=== PATIENT | female | born 1950 | race American Indian/Alaskan Native ===

== ENCOUNTER 2018-02-27 13:20 | Inpatient (IN) | payer MEDICARE, OTHER ==
--- NOTE | 2018-02-27 14:08 | C.PDOC ---
History Of Present Illness WORSENING SOB, DONATO, GEN MALAISE COUGH X 2 WEEKS. SUBJ FEVER AND CHILLS YESTERDAY. PT DENIES HO CHF, COPD, ASTHMA. DENIES LEG SWELLING, CP OR DIURETIC USE. DENIES HOME O2 USE. HO several strokes, 3 GA's, amy's syndrome, syphillis, HTN, NIDDM, dyslipidemia, gout. EXAM MOD DIST NRB PRESENT "IT HELPS A LITTLE"; 100% ON NRB HEENT NEG NO CYANOSIS LUNGS DEC BREATH SOUNDS TO APEX; SPEAKING FULL SENTENCES +RETRACTIONS TACHYPNEA CV RRR 1+ EDEMA REMAINDER NEG Time Seen by Provider: 02/27/18 13:57 Chief Complaint (Nursing): Cough, Cold, Congestion History Per: Patient History/Exam Limitations: no limitations Onset/Duration Of Symptoms: Days Current Symptoms Are (Timing): Still Present Severity: Moderate Past Medical History Reviewed: Historical Data, Nursing Documentation, Vital Signs Vital Signs: Last Vital Signs Temp 98.4 F 02/27/18 13:29 Pulse 77 02/27/18 13:53 Resp 15 02/27/18 13:53 BP 133/62 02/27/18 13:53 Pulse Ox 100 02/27/18 13:53 - Medical History PMH: Arthritis, HTN, Hypercholesterolemia, Peripheral Edema (+1 ble), TIA (x9 no deficits) Denies: Chronic Kidney Disease Surgical History: Denies: Pacemaker Other Surgeries: Hx of surgeries - [facility] CORONAR ARTERIOGR-2 CATH (08/29/13) INSERTION OF ONE VASCULAR STENT (08/29/13) INSRT OF DRUG-ELUTING CORON ARTERY STENTS(S) (08/29/13) LEFT HEART CARDIAC CATH (08/29/13) LT HEART ANGIOCARDIOGRAM (08/29/13) PERCUTANEOUS TRANSLUMINAL CORONARY ANGIOPLASTY [PTCA] (08/29/13) PROCEDURE ON SINGLE VESSEL (08/29/13) Family History: States: No Known Family Hx - Social History Hx Alcohol Use: No Hx Substance Use: No Review Of Systems Except As Marked, All Systems Reviewed And Found Negative. Constitutional: Positive for: Fever (subjective), Chills, Malaise Cardiovascular: Negative for: Chest Pain Respiratory: Positive for: Shortness of Breath Gastrointestinal: Negative for: Nausea, Vomiting Physical Exam - Physical Exam Appears: Other (moderate distress, NRB present " it helps a little" 100% on NRB) Skin: Warm, Dry, No Cyanotic Head: Atraumatic, Normacephalic Eye(s): bilateral: Normal Inspection Cardiovascular: Rhythm Regular Respiratory: Decreased Breath Sounds (decreased breath sounds to apex ), No Rales, No Rhonchi, No Wheezing, Other (+ retractions, tachypnea, speaking full sentences) Extremity: Normal ROM, Other (1+ edema) Neurological/Psych: Oriented x3, Normal Speech ED Course And Treatment - Laboratory Results Result Diagrams: 02/27/18 14:19 02/27/18 14:19 ECG: Interpreted By Me, Viewed By Me ECG Rhythm: Sinus Rhythm Rate From EC O2 Sat by Pulse Oximetry: 100 (on non-rebreather) Pulse Ox Interpretation: Normal - Radiology CXR: Interpreted by Me CXR Interpretation: Yes: Other (BL PLEURAL EFFUSION, CONGESTION) Progress - Re-Evaluation Re-evaluation Note: 02/27/18 14:45 ON VAPOTHERM, 100% APPEARS COMFORTABLE NO SIG CHANGE PRIOR. PS NO PRIOR HO ANEMIA, GI BLEED. 02/27/18 14:47 D/W DR Michelle TEJEDA AWARE OF ER FINDINGS. REQUESTING ICU CONSULT, CONSULT PULM PILATES INSTRUCTOR AND DR BILLINGS 02/27/18 15:02 D/W DR JONES ICU PILATES INSTRUCTOR WILL EVAL IN ER 02/27/18 15:12 ACCEPTS FOR ICU - Data Reviewed Data Reviewed: Lab, Diagnostic imaging, EKG, Old records - Critical Care Citical Care: Excluding Proc Time Critical Care Time: 90 minutes Medical Decision Making Medical Decision Making: Plan: --Labs --ECG --CXR --UA Disposition Counseled Patient/Family Regarding: Studies Performed, Diagnosis - Disposition Disposition: HOSPITALIZED Disposition Time: 15:04 Condition: SERIOUS Forms: [facility] (Ukrainian) - POA Present On Arrival: None - Clinical Impression Clinical Impression: Hypoxia, Acute CHF, Symptomatic anemia - Scribe Statement The provider has reviewed the documentation as recorded by the Jaclyn Doherty Provider Attestation: All medical record entries made by the Scribe were at my direction and personally dictated by me. I have reviewed the chart and agree that the record accurately reflects my personal performance of the history, physical exam, medical decision making, and the department course for this patient. I have also personally directed, reviewed, and agree with the discharge instructions and disposition.
[2018-02-27 14:30] LABS: BASO # 0.1 K/uL (0.0-0.2); BASO % 0.9 % (0.0-2.0); EOS % 0.1 % (0.0-4.0); LYMPH # 1.2 K/uL (1.0-4.3); LYMPH % 12.6 % (20.0-40.0); MEAN CORPUSCULAR HEMOGLOBIN 18.5 pg (27.0-31.0); MEAN CORPUSCULAR HGB CONC 28.5 g/dL (33.0-37.0); MEAN PLATELET VOLUME 9.7 fL (7.2-11.7); MONO # 0.5 K/uL (0.0-0.8); MONO % 5.9 % (0.0-10.0); NEUT # 7.3 K/uL (1.8-7.0); NEUT % 80.5 % (50.0-75.0); NRBC % 0.2 % (0.0-2.0); RBC 3.29 Mil/uL (3.80-5.20); RED CELL DISTRIBUTION WIDTH 21.1 % (11.5-14.5); WHITE BLOOD COUNT 9.1 K/uL (4.8-10.8)
[2018-02-27 14:35] LABS: ABG ALLEN TEST POS; ARTERIAL BLOOD GAS HCO3 25.9 mmol/L (21-28); ARTERIAL BLOOD GAS PCO2 41 mm/Hg (35-45); ARTERIAL BLOOD GAS PH 7.41 (7.35-7.45); ARTERIAL BLOOD GAS PO2 195 mm/Hg (80-100); ARTERIAL BLOOD GAS TCO2 27.3 mmol/L (22-28)
[2018-02-27 14:36] LABS: INR 1.1; PROTHROMBIN TIME 12.5 SECONDS (9.7-12.2)
[2018-02-27 14:41] LABS: HEMOGLOBIN 6.1 g/dL (11.0-16.0); MEAN CELL VOLUME 64.9 fL (81.0-99.0)
[2018-02-27 14:54] LABS: ALB/GLOB RATIO 1.1 (1.0-2.1); ALBUMIN 3.8 g/dL (3.5-5.0); ALT/SGPT 20 U/L (9-52); AST/SGOT 28 U/L (14-36); B-TYPE NATRIURETIC PEPTIDE 3040 pg/mL (0-900); BLOOD UREA NITROGEN 24 mg/dL (7-17); CALCIUM 9.2 mg/dl (8.6-10.4); GFR NON-AFRICAN AMERICAN > 60
[2018-02-27 15:32] LABS: MEAN CELL VOLUME 64.5 fL (81.0-99.0); MEAN CORPUSCULAR HEMOGLOBIN 18.4 pg (27.0-31.0); MEAN CORPUSCULAR HGB CONC 28.5 g/dL (33.0-37.0); MEAN PLATELET VOLUME 8.7 fL (7.2-11.7); RBC 3.33 Mil/uL (3.80-5.20); RED CELL DISTRIBUTION WIDTH 20.7 % (11.5-14.5); WHITE BLOOD COUNT 9.1 K/uL (4.8-10.8)
[2018-02-27 15:43] LABS: HEMOGLOBIN 6.1 g/dL (11.0-16.0)
--- NOTE | 2018-02-27 16:16 | RAD ---
Date of service: 02/27/2018 HISTORY: SOB COMPARISON: None available. FINDINGS: LUNGS: There appears to be mild central pulmonary venous congestive changes exacerbated in appearance by a poor inspiration. Suspect mild bibasilar atelectasis. PLEURA: No significant pleural effusion identified, no pneumothorax apparent. CARDIOVASCULAR: No appreciable aortic atherosclerotic calcification present. Cardiomegaly.. OSSEOUS STRUCTURES: No significant abnormalities. Apparent in situ pain stimulator overlying the mid to lower thoracic spine. VISUALIZED UPPER ABDOMEN: Normal. OTHER FINDINGS: None. IMPRESSION: There appears to be mild central pulmonary venous congestive changes exacerbated in appearance by a poor inspiration. Suspect mild bibasilar atelectasis.
--- NOTE | 2018-02-27 17:00 | CP.PCM.CON ---
<Rudi Mercado - Last Filed: 02/27/18 19:09> History of Present Illness - History of Present Illness History of Present Illness: PGY-1 ICU Consult Note for Dr. Lares Patient is a 66 year old F with PMHx of CVA (multiple episodes), ND (3 episodes), Riana's syndrome, syphilis, HTN, HLD, NIDDM, gout presenting to the ED with worsening shortness of breath, dyspnea on exertion, orthopnea, and dry cough for the past 2 weeks. Patient also endorses subjective fevers and chills since yesterday. No headaches, dizziness, changes in vision, chest pain, palpitations, abdominal pain, n/v/d/c, dysuria, or changes in stool. PMHx: CVA (multiple episodes), ND (3 episodes), Riana's syndrome, syphilis, HTN, HLD, NIDDM, gout PSHx: Heart stent (06/2013), Left ankle surgery, Right eye surgery, Right ovarian cyst surgery, Spinal cord stimulator surgery Allergies: Lyrica Home Medications: as per EMR Social Hx: + tobacco use, denies alcohol or illicit drug use Family Hx: unknown PMD: Dr. 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, 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 brreaking since 2012, wears eyeglasses - RENAL Hx Chronic Kidney Disease: No - ENDOCRINE/METABOLIC Hx Endocrine Disorders: Yes Hx Diabetes Mellitus Type 1: Yes (dx 02/2013) Other/Comment: was in a diabetic coma 9 days 2013 - HEMATOLOGICAL/ONCOLOGICAL Hx Blood Disorders: No - INTEGUMENTARY Hx Dermatological Problems: No - MUSCULOSKELETAL/RHEUMATOLOGICAL Hx Arthritis: Yes - GASTROINTESTINAL Hx Gastrointestinal Disorders: Yes (obese) - GENITOURINARY/GYNECOLOGICAL Hx Incontinence: Yes (uses depends) - PSYCHIATRIC Hx Substance Use: No - SURGICAL HISTORY Hx Cardiac Catheterization: Yes Hx Musculoskeletal Surgery: Yes (LEFT ANKLE SURGERY from fall) Other/Comment: hardware removed left ankle, ovarian cyst removed, spinal cord implant styimulator at [facility] [address] moe - ANESTHESIA Hx Anesthesia Reactions: Yes Hx Malignant Hyperthermia: No Meds Allergies/Adverse Reactions: Allergies Allergy/AdvReac Type Severity Reaction Status Date / Time pregabalin [From Lyrica] Allergy ANGIOEDEMA Verified 01/15/17 19:27 Physical Exam - Constitutional Appears: Non-toxic - Head Exam Head Exam: ATRAUMATIC, NORMAL INSPECTION, NORMOCEPHALIC - Eye Exam Eye Exam: EOMI, Normal appearance - ENT Exam ENT Exam: Mucous Membranes Moist, Normal Exam - Neck Exam Neck exam: Positive for: Full Rom, Normal Inspection - Respiratory Exam Respiratory Exam: Decreased Breath Sounds. absent: Rales, Rhonchi, Wheezes Additional comments: tachypneic, speaking full sentences - Cardiovascular Exam Cardiovascular Exam: REGULAR RHYTHM, +S1, +S2 - GI/Abdominal Exam GI & Abdominal Exam: Normal Bowel Sounds, Soft. absent: Distended, Firm, Guarding, Hernia, Rebound, Tenderness - Extremities Exam Extremities exam: Positive for: normal capillary refill, normal inspection, pedal pulses present. Negative for: calf tenderness, pedal edema - Neurological Exam Neurological exam: Alert, Oriented x3 - Psychiatric Exam Psychiatric exam: Normal Affect, Normal Mood - Skin Skin Exam: Dry, Intact, Normal Color, Warm Results - Vital Signs Recent Vital Signs: Last Vital Signs Temp 98.4 F 02/27/18 16:53 Pulse 83 02/27/18 16:53 Resp 18 02/27/18 16:53 BP 151/85 H 02/27/18 16:53 Pulse Ox 93 L 02/27/18 16:53 - Labs Result Diagrams: 02/27/18 15:25 02/27/18 14:19 Labs: Laboratory Results - last 24 hr 02/27/18 02/27/18 02/27/18 14:19 14:19 14:19 WBC 9.1 RBC 3.29 L Hgb 6.1 L* D Hct 21.3 L MCV 64.9 L D MCH 18.5 L MCHC 28.5 L RDW 21.1 H Plt Count 284 MPV 9.7 Neut % (Auto) 80.5 H Lymph % (Auto) 12.6 L Smith % (Auto) 5.9 Eos % (Auto) 0.1 Baso % (Auto) 0.9 Neut # (Auto) 7.3 H Lymph # (Auto) 1.2 Smith # (Auto) 0.5 Eos # (Auto) 0.0 Baso # (Auto) 0.1 Differential Comment PT 12.5 H INR 1.1 APTT 38 H Puncture Site pCO2 pO2 HCO3 ABG pH ABG Total CO2 ABG O2 Saturation ABG Base Excess Lester Test ABG Potassium A-a O2 Difference Respiratory Index Glucose Lactate Liter Flow FiO2 Sodium 136 Potassium 4.7 Chloride 95 L Carbon Dioxide 27 Anion Gap 19 BUN 24 H Creatinine 0.9 Est GFR ( Amer) > 60 Est GFR (Non-Af Amer) > 60 Random Glucose 124 H Calcium 9.2 Phosphorus 2.9 Magnesium 1.6 Total Bilirubin 0.9 AST 28 ALT 20 Alkaline Phosphatase 82 NT-Pro-B Natriuret Pep 3040 H Total Protein 7.2 Albumin 3.8 Globulin 3.4 Albumin/Globulin Ratio 1.1 Arterial Blood Potassium Blood Type Antibody Screen 02/27/18 02/27/18 02/27/18 14:32 15:25 15:25 WBC 9.1 RBC 3.33 L Hgb 6.1 L* Hct 21.5 L MCV 64.5 L MCH 18.4 L MCHC 28.5 L RDW 20.7 H Plt Count 273 MPV 8.7 Neut % (Auto) Lymph % (Auto) Smith % (Auto) Eos % (Auto) Baso % (Auto) Neut # (Auto) Lymph # (Auto) Smith # (Auto) Eos # (Auto) Baso # (Auto) Differential Comment PT INR APTT Puncture Site Rr pCO2 41 pO2 195 H HCO3 25.9 ABG pH 7.41 ABG Total CO2 27.3 ABG O2 Saturation 100.0 H ABG Base Excess 1.2 Lester Test Pos ABG Potassium 4.1 A-a O2 Difference 467.0 Respiratory Index 2.4 Glucose 86 Lactate 1.2 Liter Flow 20.0 FiO2 100.0 Sodium 139.0 Potassium Chloride 111.0 H Carbon Dioxide Anion Gap BUN Creatinine Est GFR ( Amer) Est GFR (Non-Af Amer) Random Glucose Calcium Phosphorus Magnesium Total Bilirubin AST ALT Alkaline Phosphatase NT-Pro-B Natriuret Pep Total Protein Albumin Globulin Albumin/Globulin Ratio Arterial Blood Potassium 4.1 Blood Type A POSITIVE Antibody Screen Negative Assessment & Plan - Assessment and Plan (Free Text) Assessment: 68 yo F with PMHx including multiple CVA, multiple ND, NIIDM, HTN, HLD presenting worsening shortness of breath, DONATO, elevated BNP. Plan: Neuro: -patient alert and oriented x3 -no focal neurological deficits noted -c/w home neurontin Pulm: -on vapotherm 100% @ 40L/min -CXR (02/27): Mild central pulmonary venous congestive changes exacerbated in appearance by a poor inspiration. Suspect mild bibasilar atelectasis. CV: -BP 162/71 -BNP 2040 -EKG (02/27): NSR @ 76 bpm -c/w ASA, plavix, statin -c/w lopressor 50 BID -Cardiology consult (Dr. Bennett) on board Heme: -Hb/Hct: 6.1/21.5 -PT/INR: 12.5/1.1 -PTT: 38 -no prior hx anemia, no hx GI bleed -type and cross 2 units -to tranfuse 1 unit pRBCs, repeat CBC Renal: -BUN/Cr 24/0.9 -electrolytes within normal limits Endo: -A1C: 6.5 -restart home meds GI: -GI consult (Dr. Fuller) on board ID: [id number] [id number] PPx, Diet, Disposition -GI: pepcid -PT eval on board Case discussed with Dr. Luda Mercado DO, PGY-1 <Erasto Lares - Last Filed: 02/28/18 11:31> Meds - Medications Medications: Current Medications Aspirin (Ecotrin) 81 mg PO DAILY [facility] Last Admin: 02/28/18 10:03 Dose: Not Given Clopidogrel Bisulfate (Plavix) 75 mg PO DAILY [facility] Last Admin: 02/28/18 10:03 Dose: Not Given Gabapentin (Neurontin) 600 mg PO DAILY [facility] Last Admin: 02/28/18 10:03 Dose: 600 mg Metoprolol Tartrate (Lopressor) 50 mg PO BID [facility] Last Admin: 02/28/18 10:03 Dose: 50 mg Pantoprazole Sodium (Protonix Inj) 40 mg IVP DAILY [facility] Last Admin: 02/28/18 10:02 Dose: 40 mg Rosuvastatin Calcium (Crestor) 5 mg PO HS [facility] Last Admin: 02/27/18 21:40 Dose: 5 mg Sitagliptin Phosphate (Januvia) 50 mg PO DAILY [facility] Last Admin: 02/28/18 10:58 Dose: 50 mg Results - Vital Signs Recent Vital Signs: Last Vital Signs Temp 98.6 F 02/28/18 11:02 Pulse 68 02/28/18 11:20 Resp 20 02/28/18 11:20 BP 130/57 L 02/28/18 11:18 Pulse Ox 100 02/28/18 11:20 - Labs Result Diagrams: 02/28/18 06:34 02/28/18 06:30 Labs: Laboratory Results - last 24 hr 02/27/18 02/27/18 02/27/18 14:19 14:19 14:19 WBC 9.1 RBC 3.29 L Hgb 6.1 L* D Hct 21.3 L MCV 64.9 L D MCH 18.5 L MCHC 28.5 L RDW 21.1 H Plt Count 284 MPV 9.7 Neut % (Auto) 80.5 H Lymph % (Auto) 12.6 L Smith % (Auto) 5.9 Eos % (Auto) 0.1 Baso % (Auto) 0.9 Neut # (Auto) 7.3 H Lymph # (Auto) 1.2 Smith # (Auto) 0.5 Eos # (Auto) 0.0 Baso # (Auto) 0.1 Differential Comment Retic Count PT 12.5 H INR 1.1 APTT 38 H Puncture Site pCO2 pO2 HCO3 ABG pH ABG Total CO2 ABG O2 Saturation ABG Base Excess Lester Test ABG Potassium A-a O2 Difference Respiratory Index Glucose Lactate Liter Flow FiO2 Sodium 136 Potassium 4.7 Chloride 95 L Carbon Dioxide 27 Anion Gap 19 BUN 24 H Creatinine 0.9 Est GFR ( Amer) > 60 Est GFR (Non-Af Amer) > 60 POC Glucose (mg/dL) Random Glucose 124 H Calcium 9.2 Phosphorus 2.9 Magnesium 1.6 Iron TIBC % Saturation Ferritin Total Bilirubin 0.9 AST 28 ALT 20 Alkaline Phosphatase 82 NT-Pro-B Natriuret Pep 3040 H Total Protein 7.2 Albumin 3.8 Globulin 3.4 Albumin/Globulin Ratio 1.1 Arterial Blood Potassium Urine Color Urine Clarity Urine pH Ur Specific Brawley Urine Protein Urine Glucose (UA) Urine Ketones Urine Blood Urine Nitrate Urine Bilirubin Urine Urobilinogen Ur Leukocyte Esterase Urine WBC (Auto) Urine RBC (Auto) Ur Squamous Epith Cells Urine Bacteria Blood Type Antibody Screen 02/27/18 02/27/18 02/27/18 14:32 15:25 15:25 WBC 9.1 RBC 3.33 L Hgb 6.1 L* Hct 21.5 L MCV 64.5 L MCH 18.4 L MCHC 28.5 L RDW 20.7 H Plt Count 273 MPV 8.7 Neut % (Auto) Lymph % (Auto) Smith % (Auto) Eos % (Auto) Baso % (Auto) Neut # (Auto) Lymph # (Auto) Smith # (Auto) Eos # (Auto) Baso # (Auto) Differential Comment Retic Count PT INR APTT Puncture Site Rr pCO2 41 pO2 195 H HCO3 25.9 ABG pH 7.41 ABG Total CO2 27.3 ABG O2 Saturation 100.0 H ABG Base Excess 1.2 Lester Test Pos ABG Potassium 4.1 A-a O2 Difference 467.0 Respiratory Index 2.4 Glucose 86 Lactate 1.2 Liter Flow 20.0 FiO2 100.0 Sodium 139.0 Potassium Chloride 111.0 H Carbon Dioxide Anion Gap BUN Creatinine Est GFR ( Amer) Est GFR (Non-Af Amer) POC Glucose (mg/dL) Random Glucose Calcium Phosphorus Magnesium Iron TIBC % Saturation Ferritin Total Bilirubin AST ALT Alkaline Phosphatase NT-Pro-B Natriuret Pep Total Protein Albumin Globulin Albumin/Globulin Ratio Arterial Blood Potassium 4.1 Urine Color Urine Clarity Urine pH Ur Specific Brawley Urine Protein Urine Glucose (UA) Urine Ketones Urine Blood Urine Nitrate Urine Bilirubin Urine Urobilinogen Ur Leukocyte Esterase Urine WBC (Auto) Urine RBC (Auto) Ur Squamous Epith Cells Urine Bacteria Blood Type A POSITIVE Antibody Screen Negative 02/27/18 02/27/18 02/28/18 20:54 21:25 00:15 WBC 9.4 RBC 3.71 L Hgb 7.3 L Hct 25.0 L MCV 67.4 L D MCH 19.8 L MCHC 29.3 L RDW 23.4 H Plt Count 273 MPV 9.3 Neut % (Auto) 81.1 H Lymph % (Auto) 11.9 L Smith % (Auto) 6.3 Eos % (Auto) 0.4 Baso % (Auto) 0.3 Neut # (Auto) 7.7 H Lymph # (Auto) 1.1 Smith # (Auto) 0.6 Eos # (Auto) 0.0 Baso # (Auto) 0.0 Differential Comment Retic Count PT INR APTT Puncture Site pCO2 pO2 HCO3 ABG pH ABG Total CO2 ABG O2 Saturation ABG Base Excess Lester Test ABG Potassium A-a O2 Difference Respiratory Index Glucose Lactate Liter Flow FiO2 Sodium Potassium Chloride Carbon Dioxide Anion Gap BUN Creatinine Est GFR ( Amer) Est GFR (Non-Af Amer) POC Glucose (mg/dL) 151 H Random Glucose Calcium Phosphorus Magnesium Iron TIBC % Saturation Ferritin Total Bilirubin AST ALT Alkaline Phosphatase NT-Pro-B Natriuret Pep Total Protein Albumin Globulin Albumin/Globulin Ratio Arterial Blood Potassium Urine Color Straw Urine Clarity Clear Urine pH 5.0 Ur Specific Brawley 1.004 Urine Protein Negative Urine Glucose (UA) Normal Urine Ketones Negative Urine Blood Negative Urine Nitrate Negative Urine Bilirubin Negative Urine Urobilinogen Normal Ur Leukocyte Esterase Neg Urine WBC (Auto) < 1 Urine RBC (Auto) < 1 Ur Squamous Epith Cells < 1 Urine Bacteria Rare Blood Type Antibody Screen 02/28/18 02/28/18 02/28/18 06:30 06:34 07:26 WBC 8.4 RBC 3.63 L Hgb 7.3 L Hct 24.5 L MCV 67.6 L MCH 20.1 L MCHC 29.7 L RDW 23.2 H Plt Count 242 MPV 9.2 Neut % (Auto) 78.1 H Lymph % (Auto) 14.0 L Smith % (Auto) 6.7 Eos % (Auto) 0.6 Baso % (Auto) 0.6 Neut # (Auto) 6.5 Lymph # (Auto) 1.2 Smith # (Auto) 0.6 Eos # (Auto) 0.1 Baso # (Auto) 0.1 Differential Comment Retic Count 2.8 H PT INR APTT Puncture Site pCO2 pO2 HCO3 ABG pH ABG Total CO2 ABG O2 Saturation ABG Base Excess Lester Test ABG Potassium A-a O2 Difference Respiratory Index Glucose Lactate Liter Flow FiO2 Sodium 137 Potassium 4.5 Chloride 97 L Carbon Dioxide 34 H Anion Gap 11 BUN 20 H Creatinine 0.7 Est GFR ( Amer) > 60 Est GFR (Non-Af Amer) > 60 POC Glucose (mg/dL) 129 H Random Glucose 120 H Calcium 8.9 Phosphorus 3.6 Magnesium 1.6 Iron TIBC % Saturation Ferritin 7.1 Total Bilirubin 1.2 AST 28 ALT 21 Alkaline Phosphatase 101 NT-Pro-B Natriuret Pep Total Protein 7.1 Albumin 3.7 Globulin 3.3 Albumin/Globulin Ratio 1.1 Arterial Blood Potassium Urine Color Urine Clarity Urine pH Ur Specific Brawley Urine Protein Urine Glucose (UA) Urine Ketones Urine Blood Urine Nitrate Urine Bilirubin Urine Urobilinogen Ur Leukocyte Esterase Urine WBC (Auto) Urine RBC (Auto) Ur Squamous Epith Cells Urine Bacteria Blood Type Antibody Screen 02/28/18 08:13 WBC RBC Hgb Hct MCV MCH MCHC RDW Plt Count MPV Neut % (Auto) Lymph % (Auto) Smith % (Auto) Eos % (Auto) Baso % (Auto) Neut # (Auto) Lymph # (Auto) Smith # (Auto) Eos # (Auto) Baso # (Auto) Differential Comment Retic Count PT INR APTT Puncture Site pCO2 pO2 HCO3 ABG pH ABG Total CO2 ABG O2 Saturation ABG Base Excess Lester Test ABG Potassium A-a O2 Difference Respiratory Index Glucose Lactate Liter Flow FiO2 Sodium Potassium Chloride Carbon Dioxide Anion Gap BUN Creatinine Est GFR ( Amer) Est GFR (Non-Af Amer) POC Glucose (mg/dL) Random Glucose Calcium Phosphorus Magnesium Iron 35 L TIBC 502 H % Saturation 7 L Ferritin Total Bilirubin AST ALT Alkaline Phosphatase NT-Pro-B Natriuret Pep Total Protein Albumin Globulin Albumin/Globulin Ratio Arterial Blood Potassium Urine Color Urine Clarity Urine pH Ur Specific Brawley Urine Protein Urine Glucose (UA) Urine Ketones Urine Blood Urine Nitrate Urine Bilirubin Urine Urobilinogen Ur Leukocyte Esterase Urine WBC (Auto) Urine RBC (Auto) Ur Squamous Epith Cells Urine Bacteria Blood Type Antibody Screen Attending/Attestation - Attestation I have personally seen and examined this patient.: Yes I have fully participated in the care of the patient.: Yes I have reviewed all pertinent clinical information: Yes Notes (Text): 02/28/18 11:30 patient is a 68-year-old female chronic smoker, one pack per day for many years, history of stent, CAD, hypertension diabetes. Patient admitted with acute decompensated heart failure, and associate with this severe anemia of unclear etiology, suspected GI bleed. Patient with the possible acute respirated failure, associate with the decompensated systolic heart failure, and anemia. Patient needed hospi talization in the intensive care unit with high flow oxygen, blood transfusion, cardiology and GI evaluation. Will closely monitor in the ICU
--- NOTE | 2018-02-27 18:35 | CP.PCM.CON ---
History of Present Illness - History of Present Illness History of Present Illness: I was asked to see patient by Dr Lozano and Dr Lares. Patient was seen 02/27/18 1800 Patient is a 68 year old female with HTN, CAD s/p PCI, hypercholesterolemia, chronic back problems s/p multiple surgeries who presents with fatigue weakness and dyspnea. Symptoms began 2 weeks prior to presentation when she developed progressive fatigue. The patient was noted to have worsening dyspnea and orthopnea. She presented to [facility] and was found to have Hgb 6.4 and a pro BNP of 3,000. She denies current chest pain. Review of Systems - Constitutional Constitutional: Malaise, Weakness - EENT Eyes: absent: As Per HPI, Blind Spots, Blurred Vision, Change in Vision, Decreased Night Vision, Diplopia, Discharge, Dry Eye, Exophthalmos, Floaters, Irritation, Itchy Eyes, Loss of Peripheral Vision, Pain, Photophobia, Requires Corrective Lenses, Sees Flashes, Spots in Vision, Tunnel Vision, Other Visual Disturbances, Loss of Vision, Other Ears: absent: As Per HPI, Decreased Hearing, Ear Discharge, Ear Pain, Tinnitus, Abnormal Hearing, Disequilibrium, Dizziness, Other Nose/Mouth/Throat: absent: As Per HPI, Epistaxis, Nasal Congestion, Nasal Discharge, Nasal Obstruction, Nasal Trauma, Nose Pain, Post Nasal Drip, Sinus Pain, Sinus Pressure, Bleeding Gums, Change in Voice, Dental Pain, Dry Mouth, Dysphagia, Halitosis, Hoarsness, Lip Swelling, Mouth Lesions, Mouth Pain, Odynophagia, Sore Throat, Throat Swelling, Tongue Swelling, Facial Pain, Neck Pain, Neck Mass, Other - Cardiovascular Cardiovascular: Dyspnea, Orthopnea - Respiratory Respiratory: Dyspnea - Gastrointestinal Gastrointestinal: absent: As Per HPI, Abdominal Pain, Belching, Bloating, Change in Bowel Habits, Change in Stool Character, Coffee Ground Emesis, Constipation, Cramping, Diarrhea, Dyspepsia, Dysphagia, Early Satiety, Excessive Flatus, Fecal Incontinence, Heartburn, Hematemesis, Hematochezia, Loose Stools, Melena, Nausea, Odynophagia, Temesmus, Vomiting, Other - Genitourinary Genitourinary: absent: As Per HPI, Change in Urinary Stream, Difficulty Urinating, Dysuria, Flank Pain, Hematuria, Pyuria, Nocturia, Urinary Incontinen ce, Urinary Frequency, Urinary Hesitance, Urinary Urgency, Voiding Freq/Small Amts, Freq UTI, Hx Renal/Bladder Calculi, Hx /Renal Surgery, Bladder Distension, Other - Musculoskeletal Musculoskeletal: absent: As Per HPI, Abnormal Gait, Arthralgias, Atrophy, Back Pain, Deformity, Joint Swelling, Limited Range of Motion, Loss of Height, Muscle Cramps, Muscle Weakness, Myalgias, Neck Pain, Numbness, Radiating Pain into Limb, Stiffness, Tingling, Other - Integumentary Integumentary: absent: As Per HPI, Acne, Alopecia, Bleeding Lesions, Change in Hair, Change in Nails, Change in Pigmentation, Changing Lesions, Dry Skin, Erythema, Furuncle, Hirsutism, Lesions, New Lesions, Non-Healing Lesions, Photosensitivity, Pruritus, Rash, Skin Pain, Skin Ulcer, Sores, Striae, Swelling, Unusual Bruising, Wounds, Jaundice, Other - Neurological Neurological: absent: As Per HPI, Abnormal Gait, Abnormal Hearing, Abnormal Movements, Abnormal Speech, Behavioral Changes, Burning Sensations, Confusion, Convulsions, Disequilibrium, Dizziness, Numbness, Focal Weakness, Frequent Falls, Headaches, Lack of Coordination, Loss of Vision, Memory Loss, Paresthesias, Radicular Pain, Restless Legs, Sensory Deficit, Syncope, Tingling, Tremor, Vertigo, Weakness, Other Visual Disturbances, Other - Psychiatric Psychiatric: absent: As Per HPI, Abnormal Sleep Pattern, Anhedonia, Anxiety, Auditory Hallucinations, Behavioral Changes, Change in Appetite, Change in L ibido, Confusion, Depression, Difficulty Concentrating, Hallucinations, Homicidal Ideation, Hopelessness, Irritability, Memory Loss, Mood Swings, Panic Attacks, Paranoia, Suicidal Ideation, Visual Hallucinations, Tactile Hallucinations, Other - Endocrine Endocrine: absent: As Per HPI, Change in Body Appearance, Change in Libido, Cold Intolorance, Deepening of Voice, Excessive Sweating, Fatigue, Flushing, Heat Intolorance, Increase in Ring/Shoe/Hat Size, Palpitations, Polydipsia, Polyphagia, Polyuria, Other - Hematologic/Lymphatic Hematologic: absent: As Per HPI, Easy Bleeding, Easy Bruising, Lymphadenopathy, Other Past Patient History - Infectious Disease Hx of Infectious Diseases: None - Past Social History Smoking Status: Never Smoked - CARDIAC Hx Hypercholesterolemia: Yes Hx Hypertension: Yes Hx Pacemaker: No Hx Peripheral Edema: Yes (+1 ble) - PULMONARY Hx Respiratory Disorders: No - NEUROLOGICAL Hx Transient Ischemic Attacks (TIA): Yes (x9 no deficits) - HEENT Hx HEENT Problems: No (RIGHT EYE SURGERY -LAZY EYE) Other/Comment: 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, 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 brreaking since 2012, wears eyeglasses - RENAL Hx Chronic Kidney Disease: No - ENDOCRINE/METABOLIC Hx Endocrine Disorders: Yes Hx Diabetes Mellitus Type 1: Yes (dx 02/2013) Other/Comment: was in a diabetic coma 9 days 2013 - HEMATOLOGICAL/ONCOLOGICAL Hx Blood Disorders: No - INTEGUMENTARY Hx Dermatological Problems: No - MUSCULOSKELETAL/RHEUMATOLOGICAL Hx Arthritis: Yes - GASTROINTESTINAL Hx Gastrointestinal Disorders: Yes (obese) - GENITOURINARY/GYNECOLOGICAL Hx Incontinence: Yes (uses depends) - PSYCHIATRIC Hx Substance Use: No - SURGICAL HISTORY Hx Cardiac Catheterization: Yes Hx Musculoskeletal Surgery: Yes (LEFT ANKLE SURGERY from fall) Other/Comment: hardware removed left ankle, ovarian cyst removed, spinal cord implant styimulator at [facility] [address] moe - ANESTHESIA Hx Anesthesia Reactions: Yes Hx Malignant Hyperthermia: No Meds Allergies/Adverse Reactions: Allergies Allergy/AdvReac Type Severity Reaction Status Date / Time pregabalin [From Lyrica] Allergy ANGIOEDEMA Verified 01/15/17 19:27 - Medications Medications: Current Medications Aspirin (Ecotrin) 81 mg PO DAILY [facility] Clopidogrel Bisulfate (Plavix) 75 mg PO DAILY [facility] Famotidine (Pepcid) 20 mg IVP DAILY [facility] Gabapentin (Neurontin) 600 mg PO DAILY [facility] Metoprolol Tartrate (Lopressor) 50 mg PO BID [facility] Last Admin: 02/27/18 18:27 Dose: 50 mg Rosuvastatin Calcium (Crestor) 5 mg PO HS [facility] Sitagliptin Phosphate (Januvia) 50 mg PO DAILY [facility] Physical Exam - Constitutional Appears: No Acute Distress - Head Exam Head Exam: NORMAL INSPECTION - Eye Exam Eye Exam: Normal appearance - ENT Exam ENT Exam: Mucous Membranes Dry - Neck Exam Neck exam: Positive for: Full Rom, Normal Inspection. Negative for: Lymphadenopathy - Respiratory Exam Respiratory Exam: Decreased Breath Sounds. absent: Rhonchi, Wheezes - Cardiovascular Exam Cardiovascular Exam: REGULAR RHYTHM, JVD, RRR, +S1, +S2 - GI/Abdominal Exam GI & Abdominal Exam: Normal Bowel Sounds - Rectal Exam Rectal Exam: Deferred - Extremities Exam Extremities exam: Positive for: pedal edema - Back Exam Back exam: NORMAL INSPECTION - Neurological Exam Neurological exam: Alert, Oriented x3 - Psychiatric Exam Psychiatric exam: Normal Affect - Skin Skin Exam: Dry, Normal Color, Warm Results - Vital Signs Recent Vital Signs: Last Vital Signs Temp 98.8 F 02/27/18 18:12 Pulse 79 02/27/18 18:12 Resp 21 02/27/18 18:12 BP 165/84 H 02/27/18 18:12 Pulse Ox 94 L 02/27/18 18:12 - Labs Result Diagrams: 02/27/18 15:25 02/27/18 14:19 Labs: Laboratory Results - last 24 hr 02/27/18 02/27/18 02/27/18 14:19 14:19 14:19 WBC 9.1 RBC 3.29 L Hgb 6.1 L* D Hct 21.3 L MCV 64.9 L D MCH 18.5 L MCHC 28.5 L RDW 21.1 H Plt Count 284 MPV 9.7 Neut % (Auto) 80.5 H Lymph % (Auto) 12.6 L [place] % (Auto) 5.9 Eos % (Auto) 0.1 Baso % (Auto) 0.9 Neut # (Auto) 7.3 H Lymph # (Auto) 1.2 [place] # (Auto) 0.5 Eos # (Auto) 0.0 Baso # (Auto) 0.1 Differential Comment PT 12.5 H INR 1.1 APTT 38 H Puncture Site pCO2 pO2 HCO3 ABG pH ABG Total CO2 ABG O2 Saturation ABG Base Excess Lester Test ABG Potassium A-a O2 Difference Respiratory Index Glucose Lactate Liter Flow FiO2 Sodium 136 Potassium 4.7 Chloride 95 L Carbon Dioxide 27 Anion Gap 19 BUN 24 H Creatinine 0.9 Est GFR ( Amer) > 60 Est GFR (Non-Af Amer) > 60 Random Glucose 124 H Calcium 9.2 Phosphorus 2.9 Magnesium 1.6 Total Bilirubin 0.9 AST 28 ALT 20 Alkaline Phosphatase 82 NT-Pro-B Natriuret Pep 3040 H Total Protein 7.2 Albumin 3.8 Globulin 3.4 Albumin/Globulin Ratio 1.1 Arterial Blood Potassium Blood Type Antibody Screen 02/27/18 02/27/1802/27/18 14:32 15:25 15:25 WBC 9.1 RBC 3.33 L Hgb 6.1 L* Hct 21.5 L MCV 64.5 L MCH 18.4 L MCHC 28.5 L RDW 20.7 H Plt Count 273 MPV 8.7 Neut % (Auto) Lymph % (Auto) [place] % (Auto) Eos % (Auto) Baso % (Auto) Neut # (Auto) Lymph # (Auto) [place] # (Auto) Eos # (Auto) Baso # (Auto) Differential Comment PT INR APTT Puncture Site Rr pCO2 41 pO2 195 H HCO3 25.9 ABG pH 7.41 ABG Total CO2 27.3 ABG O2 Saturation 100.0 H ABG Base Excess 1.2 Lester Test Pos ABG Potassium 4.1 A-a O2 Difference 467.0 Respiratory Index 2.4 Glucose 86 Lactate 1.2 Liter Flow 20.0 FiO2 100.0 Sodium 139.0 Potassium Chloride 111.0 H Carbon Dioxide Anion Gap BUN Creatinine Est GFR ( Amer) Est GFR (Non-Af Amer) Random Glucose Calcium Phosphorus Magnesium Total Bilirubin AST ALT Alkaline Phosphatase NT-Pro-B Natriuret Pep Total Protein Albumin Globulin Albumin/Globulin Ratio Arterial Blood Potassium 4.1 Blood Type A POSITIVE Antibody Screen Negative - EKG Data EKG Interpreted by: Myself EKG shows normal: Sinus rhythm Assessment & Plan (1) Symptomatic anemia Assessment and Plan: will need transfusion. follow up Hgb after trasnfusion Status: Acute (2) CAD (coronary artery disease) Assessment and Plan: history of CAD. will hold antiplatelet therapy given anemia Status: Acute (3) CHF (congestive heart failure) Assessment and Plan: elevated pro BNP. will evlauate LV function Status: Acute (4) Hypertension Assessment and Plan: restart metoprolol Status: Chronic
[2018-02-27 21:10] LABS: SQUAMOUS EPITHIAL < 1 /hpf (0-5); URINE BACTERIA RARE (<OCC); URINE BILIRUBIN NEGATIVE (NEGATIVE); URINE BLOOD NEGATIVE (NEGATIVE); URINE CLARITY Clear (Clear); URINE COLOR Straw (YELLOW); URINE GLUCOSE (UA) NORMAL (Normal); URINE LEUKOCYTE ESTERASE NEG Leu/uL (Negative); URINE PROTEIN NEGATIVE (NEGATIVE); URINE UROBILINOGEN NORMAL mg/dL (0.2-1.0)
[2018-02-28 00:18] LABS: BASO % 0.3 % (0.0-2.0); EOS % 0.4 % (0.0-4.0); HEMOGLOBIN 7.3 g/dL (11.0-16.0); LYMPH # 1.1 K/uL (1.0-4.3); LYMPH % 11.9 % (20.0-40.0); MEAN CELL VOLUME 67.4 fL (81.0-99.0); MEAN CORPUSCULAR HEMOGLOBIN 19.8 pg (27.0-31.0); MEAN CORPUSCULAR HGB CONC 29.3 g/dL (33.0-37.0); MEAN PLATELET VOLUME 9.3 fL (7.2-11.7); MONO # 0.6 K/uL (0.0-0.8); MONO % 6.3 % (0.0-10.0); NEUT # 7.7 K/uL (1.8-7.0); NEUT % 81.1 % (50.0-75.0); NRBC % 0.1 % (0.0-2.0); RBC 3.71 Mil/uL (3.80-5.20); RED CELL DISTRIBUTION WIDTH 23.4 % (11.5-14.5); WHITE BLOOD COUNT 9.4 K/uL (4.8-10.8)
[2018-02-28 01:15] VITALS: BMI 39.0
[2018-02-28 06:43] LABS: BASO # 0.1 K/uL (0.0-0.2); BASO % 0.6 % (0.0-2.0); EOS # 0.1 K/uL (0.0-0.7); EOS % 0.6 % (0.0-4.0); HEMOGLOBIN 7.3 g/dL (11.0-16.0); LYMPH # 1.2 K/uL (1.0-4.3); MEAN CELL VOLUME 67.6 fL (81.0-99.0); MEAN CORPUSCULAR HEMOGLOBIN 20.1 pg (27.0-31.0); MEAN CORPUSCULAR HGB CONC 29.7 g/dL (33.0-37.0); MEAN PLATELET VOLUME 9.2 fL (7.2-11.7); MONO # 0.6 K/uL (0.0-0.8); MONO % 6.7 % (0.0-10.0); NEUT # 6.5 K/uL (1.8-7.0); NEUT % 78.1 % (50.0-75.0); NRBC % 0.3 % (0.0-2.0); RBC 3.63 Mil/uL (3.80-5.20); RED CELL DISTRIBUTION WIDTH 23.2 % (11.5-14.5); WHITE BLOOD COUNT 8.4 K/uL (4.8-10.8)
[2018-02-28 06:54] LABS: ALB/GLOB RATIO 1.1 (1.0-2.1); ALBUMIN 3.7 g/dL (3.5-5.0); ALT/SGPT 21 U/L (9-52); AST/SGOT 28 U/L (14-36); BLOOD UREA NITROGEN 20 mg/dL (7-17); CALCIUM 8.9 mg/dl (8.6-10.4); GFR NON-AFRICAN AMERICAN > 60
--- NOTE | 2018-02-28 08:14 | CP.PCM.PN ---
Subjective - Date & Time of Evaluation Date of Evaluation: 02/28/18 Time of Evaluation: 07:20 - Subjective Subjective: patient has less dyspnea. s/p transfusion. Hgb 7.3 Objective - Vital Signs/Intake and Output Vital Signs (last 24 hours): Temp Pulse Resp BP Pulse Ox 98 F 64 17 144/60 99 02/28/18 04:00 02/28/18 08:06 02/28/18 08:08 02/28/18 08:06 02/28/18 08:06 Intake and Output: 02/28/18 02/28/18 06:59 18:59 Intake Total 425 0 Output Total 800 800 Balance -375 -800 - Medications Medications: Current Medications Aspirin (Ecotrin) 81 mg PO DAILY [facility] Clopidogrel Bisulfate (Plavix) 75 mg PO DAILY [facility] Furosemide (Lasix) 40 mg IVP ONCE ONE Stop: 02/28/18 10:01 Gabapentin (Neurontin) 600 mg PO DAILY [facility] Metoprolol Tartrate (Lopressor) 50 mg PO BID [facility] Last Admin: 02/27/18 18:27 Dose: 50 mg Pantoprazole Sodium (Protonix Inj) 40 mg IVP DAILY [facility] Rosuvastatin Calcium (Crestor) 5 mg PO HS [facility] Last Admin: 02/27/18 21:40 Dose: 5 mg Sitagliptin Phosphate (Januvia) 50 mg PO DAILY [facility] - Labs Labs: 02/28/18 06:34 02/28/18 06:30 PT 12.5 SECONDS (9.7-12.2) H 02/27/18 14:19 INR 1.1 02/27/18 14:19 APTT 38 SECONDS (21-34) H 02/27/18 14:19 - Constitutional Appears: Non-toxic - Head Exam Head Exam: NORMAL INSPECTION - Eye Exam Eye Exam: Normal appearance - ENT Exam ENT Exam: Mucous Membranes Dry - Neck Exam Neck Exam: Full ROM - Respiratory Exam Respiratory Exam: Decreased Breath Sounds - Cardiovascular Exam Cardiovascular Exam: REGULAR RHYTHM - GI/Abdominal Exam GI & Abdominal Exam: Normal Bowel Sounds - Rectal Exam Rectal Exam: Deferred - Extremities Exam Extremities Exam: Pedal Edema - Back Exam Back Exam: NORMAL INSPECTION - Neurological Exam Neurological Exam: Alert - Psychiatric Exam Psychiatric exam: Normal Affect - Skin Skin Exam: Normal Color Assessment and Plan (1) Symptomatic anemia Assessment & Plan: recommend transfusion to Hgb 9. Status: Acute (2) CAD (coronary artery disease) Assessment & Plan: holding antiplatelet theerapy Status: Acute (3) CHF (congestive heart failure) Assessment & Plan: tolerated transfusion. check echocardiogram Status: Acute (4) Hypertension Assessment & Plan: blood pressure control Status: Chronic
[2018-02-28 08:37] LABS: IRON 35 ug/dL (37-170)
[2018-02-28 08:47] LABS: % IRON SATURATION 7 (20-55); TOTAL IRON BINDING CAPACITY 502 ug/dL (250-450)
[2018-02-28 08:53] LABS: FERRITIN 7.1 ng/mL
--- NOTE | 2018-02-28 09:36 | CP.PCM.CON ---
<Roger Powers - Last Filed: 02/28/18 09:28> History of Present Illness - History of Present Illness History of Present Illness: GI Fellow PGY4, Consult note. Sunshine Victor is a very pleasant 68F with extensive medical hx presenting with SOB, cough x 2 weeks and she was found to be severely anemia for which we were consulted. Patients Hb on admission was 6.1 with MCV 67 and she was give 1 unit pRBC with appropriate response up to 7.3. She had always been hemodynamically stable. W/U of presenting symptoms showed pulmonary congestion and elevated BNP worrisome for cardiogenic condition. Currently, patient is feeling better. She denies any signs of blood loss (vaginal, urine, stool). Her last Colonoscopy was in and there were polyps, she has not had follow up since. No history of GI bleeds or EGD in the past. She does take aspirin and plavix along with PPI daily. PMHx - She has history of CAD s/p stent (last 2013), CVA, T2DM, gout, syphilis, HTN PSHx - no abdominal or chest surgeries. FMHx - uncle and aunt both had colon cancer SocHx - denies alcohol. Current smoker. recently passed. 12pt ROS completed and negative except for above. 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, 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 brreaking since 2012, wears eyeglasses - RENAL Hx Chronic Kidney Disease: No - ENDOCRINE/METABOLIC Hx Endocrine Disorders: Yes Hx Diabetes Mellitus Type 1: Yes (dx 02/2013) Other/Comment: was in a diabetic coma 9 days 2013 - HEMATOLOGICAL/ONCOLOGICAL Hx Blood Disorders: No - INTEGUMENTARY Hx Dermatological Problems: No - MUSCULOSKELETAL/RHEUMATOLOGICAL Hx Arthritis: Yes Hx Falls: No Hx Herniated Disk: Yes (cervical) Other/Comment: bursitis, left knee surgery - GASTROINTESTINAL Hx Gastrointestinal Disorders: Yes (obese) - GENITOURINARY/GYNECOLOGICAL Hx Incontinence: Yes (uses depends) Other/Comment: ovarian cyst removed - PSYCHIATRIC Hx Substance Use: No - SURGICAL HISTORY Hx Cardiac Catheterization: Yes Hx Eye Surgery: Yes Hx Musculoskeletal Surgery: Yes (LEFT ANKLE SURGERY from fall) Other/Comment: hardware removed left ankle, ovarian cyst removed, spinal cord implant styimulator at [facility] [address] moe - ANESTHESIA Hx Anesthesia: Yes Hx Anesthesia Reactions: Yes (pt doesn't remember) Hx Malignant Hyperthermia: No Has any member of the family had a problem w/ anesthesia?: No Meds Allergies/Adverse Reactions: Allergies Allergy/AdvReac Type Severity Reaction Status Date / Time pregabalin [From Lyrica] Allergy ANGIOEDEMA Verified 01/15/17 19:27 - Medications Medications: Current Medications Aspirin (Ecotrin) 81 mg PO DAILY [facility] Clopidogrel Bisulfate (Plavix) 75 mg PO DAILY [facility] Furosemide (Lasix) 40 mg IVP ONCE ONE Stop: 02/28/18 10:01 Gabapentin (Neurontin) 600 mg PO DAILY [facility] Metoprolol Tartrate (Lopressor) 50 mg PO BID [facility] Last Admin: 02/27/18 18:27 Dose: 50 mg Pantoprazole Sodium (Protonix Inj) 40 mg IVP DAILY [facility] Rosuvastatin Calcium (Crestor) 5 mg PO HS [facility] Last Admin: 02/27/18 21:40 Dose: 5 mg Sitagliptin Phosphate (Januvia) 50 mg PO DAILY [facility] Physical Exam - Constitutional Appears: Non-toxic, No Acute Distress - Head Exam Head Exam: NORMAL INSPECTION, NORMOCEPHALIC - Eye Exam Eye Exam: EOMI, Normal appearance - ENT Exam ENT Exam: Mucous Membranes Moist, Normal Exam - Respiratory Exam Respiratory Exam: Rales, Rhonchi, NORMAL BREATHING PATTERN - Cardiovascular Exam Cardiovascular Exam: REGULAR RHYTHM, +S1, +S2 - GI/Abdominal Exam GI & Abdominal Exam: Normal Bowel Sounds, Soft. absent: Organomegaly, Tenderness - Extremities Exam Extremities exam: Positive for: full ROM, normal inspection - Neurological Exam Neurological exam: Alert, CN II-XII Intact, Oriented x3 - Psychiatric Exam Psychiatric exam: Normal Affect, Normal Mood - Skin Skin Exam: Dry, Normal Color Results - Vital Signs Recent Vital Signs: Last Vital Signs Temp 98.1 F 02/28/18 09:01 Pulse 71 02/28/18 09:20 Resp 16 02/28/18 09:20 BP 129/109 H 02/28/18 09:17 Pulse Ox 93 L 02/28/18 09:20 - Labs Result Diagrams: 02/28/18 06:34 02/28/18 06:30 Labs: Laboratory Results - last 24 hr 02/27/18 02/27/18 02/27/18 14:19 14:19 14:19 WBC 9.1 RBC 3.29 L Hgb 6.1 L* D Hct 21.3 L MCV 64.9 L D MCH 18.5 L MCHC 28.5 L RDW 21.1 H Plt Count 284 MPV 9.7 Neut % (Auto) 80.5 H Lymph % (Auto) 12.6 L Rankin % (Auto) 5.9 Eos % (Auto) 0.1 Baso % (Auto) 0.9 Neut # (Auto) 7.3 H Lymph # (Auto) 1.2 Rankin # (Auto) 0.5 Eos # (Auto) 0.0 Baso # (Auto) 0.1 Differential Comment Retic Count PT 12.5 H INR 1.1 APTT 38 H Puncture Site pCO2 pO2 HCO3 ABG pH ABG Total CO2 ABG O2 Saturation ABG Base Excess Lester Test ABG Potassium A-a O2 Difference Respiratory Index Glucose Lactate Liter Flow FiO2 Sodium 136 Potassium 4.7 Chloride 95 L Carbon Dioxide 27 Anion Gap 19 BUN 24 H Creatinine 0.9 Est GFR ( Amer) > 60 Est GFR (Non-Af Amer) > 60 POC Glucose (mg/dL) Random Glucose 124 H Calcium 9.2 Phosphorus 2.9 Magnesium 1.6 Iron TIBC % Saturation Ferritin Total Bilirubin 0.9 AST 28 ALT 20 Alkaline Phosphatase 82 NT-Pro-B Natriuret Pep 3040 H Total Protein 7.2 Albumin 3.8 Globulin 3.4 Albumin/Globulin Ratio 1.1 Arterial Blood Potassium Urine Color Urine Clarity Urine pH Ur Specific [place] Urine Protein Urine Glucose (UA) Urine Ketones Urine Blood Urine Nitrate Urine Bilirubin Urine Urobilinogen Ur Leukocyte Esterase Urine WBC (Auto) Urine RBC (Auto) Ur Squamous Epith Cells Urine Bacteria Blood Type Antibody Screen 02/27/18 02/27/18 02/27/18 14:32 15:25 15:25 WBC 9.1 RBC 3.33 L Hgb 6.1 L* Hct 21.5 L MCV 64.5 L MCH 18.4 L MCHC 28.5 L RDW 20.7 H Plt Count 273 MPV 8.7 Neut % (Auto) Lymph % (Auto) Rankin % (Auto) Eos % (Auto) Baso % (Auto) Neut # (Auto) Lymph # (Auto) Rankin # (Auto) Eos # (Auto) Baso # (Auto) Differential Comment Retic Count PT INR APTT Puncture Site Rr pCO2 41 pO2 195 H HCO3 25.9 ABG pH 7.41 ABG Total CO2 27.3 ABG O2 Saturation 100.0 H ABG Base Excess 1.2 Lester Test Pos ABG Potassium 4.1 A-a O2 Difference 467.0 Respiratory Index 2.4 Glucose 86 Lactate 1.2 Liter Flow 20.0 FiO2 100.0 Sodium 139.0 Potassium Chloride 111.0 H Carbon Dioxide Anion Gap BUN Creatinine Est GFR ( Amer) Est GFR (Non-Af Amer) POC Glucose (mg/dL) Random Glucose Calcium Phosphorus Magnesium Iron TIBC % Saturation Ferritin Total Bilirubin AST ALT Alkaline Phosphatase NT-Pro-B Natriuret Pep Total Protein Albumin Globulin Albumin/Globulin Ratio Arterial Blood Potassium 4.1 Urine Color Urine Clarity Urine pH Ur Specific [place] Urine Protein Urine Glucose (UA) Urine Ketones Urine Blood Urine Nitrate Urine Bilirubin Urine Urobilinogen Ur Leukocyte Esterase Urine WBC (Auto) Urine RBC (Auto) Ur Squamous Epith Cells Urine Bacteria Blood Type A POSITIVE Antibody Screen Negative 02/27/18 02/27/18 02/28/18 20:54 21:25 00:15 WBC 9.4 RBC 3.71 L Hgb 7.3 L Hct 25.0 L MCV 67.4 L D MCH 19.8 L MCHC 29.3 L RDW 23.4 H Plt Count 273 MPV 9.3 Neut % (Auto) 81.1 H Lymph % (Auto) 11.9 L Rankin % (Auto) 6.3 Eos % (Auto) 0.4 Baso % (Auto) 0.3 Neut # (Auto) 7.7 H Lymph # (Auto) 1.1 Rankin # (Auto) 0.6 Eos # (Auto) 0.0 Baso # (Auto) 0.0 Differential Comment Retic Count PT INR APTT Puncture Site pCO2 pO2 HCO3 ABG pH ABG Total CO2 ABG O2 Saturation ABG Base Excess Lester Test ABG Potassium A-a O2 Difference Respiratory Index Glucose Lactate Liter Flow FiO2 Sodium Potassium Chloride Carbon Dioxide Anion Gap BUN Creatinine Est GFR ( Amer) Est GFR (Non-Af Amer) POC Glucose (mg/dL) 151 H Random Glucose Calcium Phosphorus Magnesium Iron TIBC % Saturation Ferritin Total Bilirubin AST ALT Alkaline Phosphatase NT-Pro-B Natriuret Pep Total Protein Albumin Globulin Albumin/Globulin Ratio Arterial Blood Potassium Urine Color Straw Urine Clarity Clear Urine pH 5.0 Ur Specific [place] 1.004 Urine Protein Negative Urine Glucose (UA) Normal Urine Ketones Negative Urine Blood Negative Urine Nitrate Negative Urine Bilirubin Negative Urine Urobilinogen Normal Ur Leukocyte Esterase Neg Urine WBC (Auto) < 1 Urine RBC (Auto) < 1 Ur Squamous Epith Cells < 1 Urine Bacteria Rare Blood Type Antibody Screen 02/28/18 02/28/18 02/28/18 06:30 06:34 07:26 WBC 8.4 RBC 3.63 L Hgb 7.3 L Hct 24.5 L MCV 67.6 L MCH 20.1 L MCHC 29.7 L RDW 23.2 H Plt Count 242 MPV 9.2 Neut % (Auto) 78.1 H Lymph % (Auto) 14.0 L Rankin % (Auto) 6.7 Eos % (Auto) 0.6 Baso % (Auto) 0.6 Neut # (Auto) 6.5 Lymph # (Auto) 1.2 Rankin # (Auto) 0.6 Eos # (Auto) 0.1 Baso # (Auto) 0.1 Differential Comment Retic Count 2.8 H PT INR APTT Puncture Site pCO2 pO2 HCO3 ABG pH ABG Total CO2 ABG O2 Saturation ABG Base Excess Lester Test ABG Potassium A-a O2 Difference Respiratory Index Glucose Lactate Liter Flow FiO2 Sodium 137 Potassium 4.5 Chloride 97 L Carbon Dioxide 34 H Anion Gap 11 BUN 20 H Creatinine 0.7 Est GFR ( Amer) > 60 Est GFR (Non-Af Amer) > 60 POC Glucose (mg/dL) 129 H Random Glucose 120 H Calcium 8.9 Phosphorus 3.6 Magnesium 1.6 Iron TIBC % Saturation Ferritin 7.1 Total Bilirubin 1.2 AST 28 ALT 21 Alkaline Phosphatase 101 NT-Pro-B Natriuret Pep Total Protein 7.1 Albumin 3.7 Globulin 3.3 Albumin/Globulin Ratio 1.1 Arterial Blood Potassium Urine Color Urine Clarity Urine pH Ur Specific [place] Urine Protein Urine Glucose (UA) Urine Ketones Urine Blood Urine Nitrate Urine Bilirubin Urine Urobilinogen Ur Leukocyte Esterase Urine WBC (Auto) Urine RBC (Auto) Ur Squamous Epith Cells Urine Bacteria Blood Type Antibody Screen 02/28/18 08:13 WBC RBC Hgb Hct MCV MCH MCHC RDW Plt Count MPV Neut % (Auto) Lymph % (Auto) Rankin % (Auto) Eos % (Auto) Baso % (Auto) Neut # (Auto) Lymph # (Auto) Rankin # (Auto) Eos # (Auto) Baso # (Auto) Differential Comment Retic Count PT INR APTT Puncture Site pCO2 pO2 HCO3 ABG pH ABG Total CO2 ABG O2 Saturation ABG Base Excess Lester Test ABG Potassium A-a O2 Difference Respiratory Index Glucose Lactate Liter Flow FiO2 Sodium Potassium Chloride Carbon Dioxide Anion Gap BUN Creatinine Est GFR ( Amer) Est GFR (Non-Af Amer) POC Glucose (mg/dL) Random Glucose Calcium Phosphorus Magnesium Iron 35 L TIBC 502 H % Saturation 7 L Ferritin Total Bilirubin AST ALT Alkaline Phosphatase NT-Pro-B Natriuret Pep Total Protein Albumin Globulin Albumin/Globulin Ratio Arterial Blood Potassium Urine Color Urine Clarity Urine pH Ur Specific [place] Urine Protein Urine Glucose (UA) Urine Ketones Urine Blood Urine Nitrate Urine Bilirubin Urine Urobilinogen Ur Leukocyte Esterase Urine WBC (Auto) Urine RBC (Auto) Ur Squamous Epith Cells Urine Bacteria Blood Type Antibody Screen Assessment & Plan - Assessment and Plan (Free Text) Assessment: #Chronic anemia, likely iron deficient #Acute Respiratory failure #CAD s/p stent (2013) - currently on aspirin and Plavix at home. #Hx of colon polyps - last #T2DM/HTN #Hx CVA PLAN - Labs and imaging reviewed - Agree with holding aspirin and Plavix. Will need to discuss with primary and net wpf developer regarding EGD and colonoscopy planning - Iron studies - Continue to monitor Hb. No active bleed at this time. Goal Hb above 8. - s/p 2u pRBCs. Monitor for volume overload. - Continue diet - PPI daily - Date & Time Date: 02/28/18 Time: 09:38 <Jori Fuller - Last Filed: 02/28/18 11:29> Meds - Medications Medications: Current Medications Aspirin (Ecotrin) 81 mg PO DAILY [facility] Last Admin: 02/28/18 10:03 Dose: Not Given Clopidogrel Bisulfate (Plavix) 75 mg PO DAILY [facility] Last Admin: 02/28/18 10:03 Dose: Not Given Gabapentin (Neurontin) 600 mg PO DAILY [facility] Last Admin: 02/28/18 10:03 Dose: 600 mg Metoprolol Tartrate (Lopressor) 50 mg PO BID [facility] Last Admin: 02/28/18 10:03 Dose: 50 mg Pantoprazole Sodium (Protonix Inj) 40 mg IVP DAILY [facility] Last Admin: 02/28/18 10:02 Dose: 40 mg Rosuvastatin Calcium (Crestor) 5 mg PO HS [facility] Last Admin: 02/27/18 21:40 Dose: 5 mg Sitagliptin Phosphate (Januvia) 50 mg PO DAILY [facility] Last Admin: 02/28/18 10:58 Dose: 50 mg Results - Vital Signs Recent Vital Signs: Last Vital Signs Temp 98.6 F 02/28/18 11:02 Pulse 68 02/28/18 11:02 Resp 99 H 02/28/18 11:02 BP 135/60 02/28/18 11:02 Pulse Ox 93 L 02/28/18 09:20 - Labs Result Diagrams: 02/28/18 06:34 02/28/18 06:30 Labs: Laboratory Results - last 24 hr 02/27/18 02/27/18 02/27/18 14:19 14:19 14:19 WBC 9.1 RBC 3.29 L Hgb 6.1 L* D Hct 21.3 L MCV 64.9 L D MCH 18.5 L MCHC 28.5 L RDW 21.1 H Plt Count 284 MPV 9.7 Neut % (Auto) 80.5 H Lymph % (Auto) 12.6 L Rankin % (Auto) 5.9 Eos % (Auto) 0.1 Baso % (Auto) 0.9 Neut # (Auto) 7.3 H Lymph # (Auto) 1.2 Rankin # (Auto) 0.5 Eos # (Auto) 0.0 Baso # (Auto) 0.1 Differential Comment Retic Count PT 12.5 H INR 1.1 APTT 38 H Puncture Site pCO2 pO2 HCO3 ABG pH ABG Total CO2 ABG O2 Saturation ABG Base Excess Lester Test ABG Potassium A-a O2 Difference Respiratory Index Glucose Lactate Liter Flow FiO2 Sodium 136 Potassium 4.7 Chloride 95 L Carbon Dioxide 27 Anion Gap 19 BUN 24 H Creatinine 0.9 Est GFR ( Amer) > 60 Est GFR (Non-Af Amer) > 60 POC Glucose (mg/dL) Random Glucose 124 H Calcium 9.2 Phosphorus 2.9 Magnesium 1.6 Iron TIBC % Saturation Ferritin Total Bilirubin 0.9 AST 28 ALT 20 Alkaline Phosphatase 82 NT-Pro-B Natriuret Pep 3040 H Total Protein 7.2 Albumin 3.8 Globulin 3.4 Albumin/Globulin Ratio 1.1 Arterial Blood Potassium Urine Color Urine Clarity Urine pH Ur Specific [place] Urine Protein Urine Glucose (UA) Urine Ketones Urine Blood Urine Nitrate Urine Bilirubin Urine Urobilinogen Ur Leukocyte Esterase Urine WBC (Auto) Urine RBC (Auto) Ur Squamous Epith Cells Urine Bacteria Blood Type Antibody Screen 02/27/18 02/27/18 02/27/18 14:32 15:25 15:25 WBC 9.1 RBC 3.33 L Hgb 6.1 L* Hct 21.5 L MCV 64.5 L MCH 18.4 L MCHC 28.5 L RDW 20.7 H Plt Count 273 MPV 8.7 Neut % (Auto) Lymph % (Auto) Rankin % (Auto) Eos % (Auto) Baso % (Auto) Neut # (Auto) Lymph # (Auto) Rankin # (Auto) Eos # (Auto) Baso # (Auto) Differential Comment Retic Count PT INR APTT Puncture Site Rr pCO2 41 pO2 195 H HCO3 25.9 ABG pH 7.41 ABG Total CO2 27.3 ABG O2 Saturation 100.0 H ABG Base Excess 1.2 Lester Test Pos ABG Potassium 4.1 A-a O2 Difference 467.0 Respiratory Index 2.4 Glucose 86 Lactate 1.2 Liter Flow 20.0 FiO2 100.0 Sodium 139.0 Potassium Chloride 111.0 H Carbon Dioxide Anion Gap BUN Creatinine Est GFR ( Amer) Est GFR (Non-Af Amer) POC Glucose (mg/dL) Random Glucose Calcium Phosphorus Magnesium Iron TIBC % Saturation Ferritin Total Bilirubin AST ALT Alkaline Phosphatase NT-Pro-B Natriuret Pep Total Protein Albumin Globulin Albumin/Globulin Ratio Arterial Blood Potassium 4.1 Urine Color Urine Clarity Urine pH Ur Specific [place] Urine Protein Urine Glucose (UA) Urine Ketones Urine Blood Urine Nitrate Urine Bilirubin Urine Urobilinogen Ur Leukocyte Esterase Urine WBC (Auto) Urine RBC (Auto) Ur Squamous Epith Cells Urine Bacteria Blood Type A POSITIVE Antibody Screen Negative 02/27/18 02/27/18 02/28/18 20:54 21:25 00:15 WBC 9.4 RBC 3.71 L Hgb 7.3 L Hct 25.0 L MCV 67.4 L D MCH 19.8 L MCHC 29.3 L RDW 23.4 H Plt Count 273 MPV 9.3 Neut % (Auto) 81.1 H Lymph % (Auto) 11.9 L Rankin % (Auto) 6.3 Eos % (Auto) 0.4 Baso % (Auto) 0.3 Neut # (Auto) 7.7 H Lymph # (Auto) 1.1 Rankin # (Auto) 0.6 Eos # (Auto) 0.0 Baso # (Auto) 0.0 Differential Comment Retic Count PT INR APTT Puncture Site pCO2 pO2 HCO3 ABG pH ABG Total CO2 ABG O2 Saturation ABG Base Excess Lester Test ABG Potassium A-a O2 Difference Respiratory Index Glucose Lactate Liter Flow FiO2 Sodium Potassium Chloride Carbon Dioxide Anion Gap BUN Creatinine Est GFR ( Amer) Est GFR (Non-Af Amer) POC Glucose (mg/dL) 151 H Random Glucose Calcium Phosphorus Magnesium Iron TIBC % Saturation Ferritin Total Bilirubin AST ALT Alkaline Phosphatase NT-Pro-B Natriuret Pep Total Protein Albumin Globulin Albumin/Globulin Ratio Arterial Blood Potassium Urine Color Straw Urine Clarity Clear Urine pH 5.0 Ur Specific [place] 1.004 Urine Protein Negative Urine Glucose (UA) Normal Urine Ketones Negative Urine Blood Negative Urine Nitrate Negative Urine Bilirubin Negative Urine Urobilinogen Normal Ur Leukocyte Esterase Neg Urine WBC (Auto) < 1 Urine RBC (Auto) < 1 Ur Squamous Epith Cells < 1 Urine Bacteria Rare Blood Type Antibody Screen 02/28/18 02/28/18 02/28/18 06:30 06:34 07:26 WBC 8.4 RBC 3.63 L Hgb 7.3 L Hct 24.5 L MCV 67.6 L MCH 20.1 L MCHC 29.7 L RDW 23.2 H Plt Count 242 MPV 9.2 Neut % (Auto) 78.1 H Lymph % (Auto) 14.0 L Rankin % (Auto) 6.7 Eos % (Auto) 0.6 Baso % (Auto) 0.6 Neut # (Auto) 6.5 Lymph # (Auto) 1.2 Rankin # (Auto) 0.6 Eos # (Auto) 0.1 Baso # (Auto) 0.1 Differential Comment Retic Count 2.8 H PT INR APTT Puncture Site pCO2 pO2 HCO3 ABG pH ABG Total CO2 ABG O2 Saturation ABG Base Excess Lester Test ABG Potassium A-a O2 Difference Respiratory Index Glucose Lactate Liter Flow FiO2 Sodium 137 Potassium 4.5 Chloride 97 L Carbon Dioxide 34 H Anion Gap 11 BUN 20 H Creatinine 0.7 Est GFR ( Amer) > 60 Est GFR (Non-Af Amer) > 60 POC Glucose (mg/dL) 129 H Random Glucose 120 H Calcium 8.9 Phosphorus 3.6 Magnesium 1.6 Iron TIBC % Saturation Ferritin 7.1 Total Bilirubin 1.2 AST 28 ALT 21 Alkaline Phosphatase 101 NT-Pro-B Natriuret Pep Total Protein 7.1 Albumin 3.7 Globulin 3.3 Albumin/Globulin Ratio 1.1 Arterial Blood Potassium Urine Color Urine Clarity Urine pH Ur Specific [place] Urine Protein Urine Glucose (UA) Urine Ketones Urine Blood Urine Nitrate Urine Bilirubin Urine Urobilinogen Ur Leukocyte Esterase Urine WBC (Auto) Urine RBC (Auto) Ur Squamous Epith Cells Urine Bacteria Blood Type Antibody Screen 02/28/18 08:13 WBC RBC Hgb Hct MCV MCH MCHC RDW Plt Count MPV Neut % (Auto) Lymph % (Auto) Rankin % (Auto) Eos % (Auto) Baso % (Auto) Neut # (Auto) Lymph # (Auto) Rankin # (Auto) Eos # (Auto) Baso # (Auto) Differential Comment Retic Count PT INR APTT Puncture Site pCO2 pO2 HCO3 ABG pH ABG Total CO2 ABG O2 Saturation ABG Base Excess Lester Test ABG Potassium A-a O2 Difference Respiratory Index Glucose Lactate Liter Flow FiO2 Sodium Potassium Chloride Carbon Dioxide Anion Gap BUN Creatinine Est GFR ( Amer) Est GFR (Non-Af Amer) POC Glucose (mg/dL) Random Glucose Calcium Phosphorus Magnesium Iron 35 L TIBC 502 H % Saturation 7 L Ferritin Total Bilirubin AST ALT Alkaline Phosphatase NT-Pro-B Natriuret Pep Total Protein Albumin Globulin Albumin/Globulin Ratio Arterial Blood Potassium Urine Color Urine Clarity Urine pH Ur Specific [place] Urine Protein Urine Glucose (UA) Urine Ketones Urine Blood Urine Nitrate Urine Bilirubin Urine Urobilinogen Ur Leukocyte Esterase Urine WBC (Auto) Urine RBC (Auto) Ur Squamous Epith Cells Urine Bacteria Blood Type Antibody Screen Attending/Attestation - Attestation I have personally seen and examined this patient.: Yes I have fully participated in the care of the patient.: Yes I have reviewed all pertinent clinical information: Yes Notes (Text): 02/28/18 11:23 I have seen and examined patient with GI fellow. Agree with above documentation with the following additions. In brief, this is a 68 year old female with history of obesity (BMI 39), CHF, CAD s/p stent on plavix, DM, HTN, syphilis who presents to hospital with dyspnea on exertion and productive cough for the past two weeks. GI called for evaluation of anemia. She is seen resting in bed comfortably and denies abdominal pain, nausea, vomiting, fever/chills, weight loss, rectal bleeding, melena, or change in bowel habits. She had a colonoscopy nearly 25 years ago which showed "polyps" as per patient. Obesity CAD s/p stent on plavix DM / HTN Dyspnea, cough - CHF exacerbation Anemia, chronic - Diet as tolerated - Patient receiving PRBC transfusion, continue to monitor H/H - Continue with PPI therapy - Anti-platelet therapy currently held given presence of microcytic anemia, follow up cardiology recommendations regarding CHF management - Obtain iron studies - Patient would certainly benefit from endoscopic evaluation following cardiac optimization and washout period of plavix. This can be performed electively as outpatient given no signs of overt bleeding, though will continue to monitor patient clinical course.
[2018-02-28] MEDS ORDERED: Ferric Sodium Gluconat Complex 62.5 mg/5 ml Vial IVPB SCH (12:15)
--- NOTE | 2018-02-28 12:34 | CP.CCUPN ---
<Rudi Mercado - Last Filed: 02/28/18 18:25> CCU Subjective - Physician Review Subjective (Free Text): 02/28/18 12:29 Patient seen and examined at bedside this AM, s/p pRBC transfusion. Patient alert and oriented, less dyspneic. 12 pt ROS otherwise unchanged at this time. Critical Care Time Spent (in minutes): 35 CCU Objective - Vital Signs / Intake & Output Vital Signs (Last 4 hours): Vital Signs Temp Pulse Resp BP Pulse Ox 02/28/18 12:09 98.4 F 62 18 129/56 L 02/28/18 11:42 20 02/28/18 11:20 68 20 100 02/28/18 11:18 69 17 130/57 L 100 02/28/18 11:10 68 19 100 02/28/18 11:03 69 19 135/60 99 02/28/18 11:02 98.6 F 68 99 H 135/60 02/28/18 11:00 72 18 99 02/28/18 10:50 74 21 96 02/28/18 10:48 76 20 156/74 H 91 L 02/28/18 10:40 81 23 93 L 02/28/18 10:33 88 23 156/65 H 99 02/28/18 10:30 77 22 97 02/28/18 10:20 78 22 97 02/28/18 10:17 76 21 139/58 L 97 02/28/18 10:10 77 19 98 02/28/18 10:02 75 27 H 140/74 100 02/28/18 10:01 98.5 F 77 98 H 140/74 02/28/18 10:00 71 23 100 02/28/18 09:50 78 13 100 02/28/18 09:47 73 29 H 139/61 100 02/28/18 09:40 69 17 100 02/28/18 09:33 71 15 141/56 L 100 02/28/18 09:30 71 22 100 02/28/18 09:29 98.5 F 73 100 H 129/109 H 02/28/18 09:20 71 16 93 L 02/28/18 09:17 71 19 129/109 H 85 L 02/28/18 09:10 71 22 97 02/28/18 09:03 72 22 147/63 97 02/28/18 09:01 98.1 F 73 22 147/63 02/28/18 09:00 78 21 96 02/28/18 08:50 70 20 98 02/28/18 08:47 66 20 140/62 100 02/28/18 08:46 98.2 F 67 18 140/62 02/28/18 08:40 68 19 99 02/28/18 08:31 98.1 F 68 20 144/60 02/28/18 08:30 68 18 98 Intake and Output (Last 8hrs): Intake & Output 02/27/18 02/28/18 02/28/18 22:59 06:59 14:59 Intake Total 546 0 1135 Output Total 9591 557 6766 Balance -1254 -600 -65 Weight 213 lb 9.6 oz 213 lb 9.6 oz Intake: Intake, IV Amount 50 20 LEFT AC 50 Right Hand 10 left ac 10 Oral 50 0 740 Blood Product 446 325 Red Blood Cells Cpd As1 325 Lr Unit [id number] Other 50 Red Blood Cells Cpd As1 50 Lr Unit [id number] Output: Urine 2563 717 7425 Urine, Voided 332 093 0807 - Physical Exam Head: Positive for: Atraumatic, Normocephalic Pupils: Positive for: PERRL Extroacular Muscles: Positive for: EOMI Mouth: Positive for: Moist Mucous Membranes Neck: Positive for: Normal Range of Motion Respiratory/Chest: Positive for: Clear to Auscultation, Decreased Breath Sounds. Negative for: Accessory Muscle Use, Wheezes, Rales, Rhonchi Cardiovascular: Positive for: Regular Rate and Rhythm, Normal S1, S2 Abdomen: Positive for: Normal Bowel Sounds. Negative for: Tenderness, Distention, Peritoneal Signs, Rebound, Guarding Upper Extremity: Positive for: Normal Inspection Lower Extremity: Positive for: Normal Inspection, NORMAL PULSES, Neurovascularly Intact, Capillary Refill < 2 s. Negative for: Edema, CALF TENDERNESS Neurological: Positive for: CN II-XII Intact, Speech Normal Skin: Positive for: Warm, Dry, Rashes, Normal Color Psychiatric: Positive for: Alert, Oriented x 3 - Medications Active Medications: Active Medications Generic Name Dose Route Start Last Admin Trade Name Freq PRN Reason Stop Dose Admin Aspirin 81 mg 02/28/18 10:00 02/28/18 10:03 Ecotrin PO Not Given DAILY JESSICA Clopidogrel Bisulfate 75 mg 02/28/18 10:00 02/28/18 10:03 Plavix PO Not Given DAILY JESSICA Gabapentin 600 mg 02/28/18 10:00 02/28/18 10:03 Neurontin PO 600 mg DAILY JESSICA Administration Ferric Sodium Gluconate 110 mls @ 110 mls/hr 02/28/18 14:00 Complex 125 mg/ Sodium IVPB 03/08/18 14:01 Chloride Q24H JESSICA Metoprolol Tartrate 50 mg 02/27/18 18:00 02/28/18 10:03 Lopressor PO 50 mg BID JESSICA Administration Pantoprazole Sodium 40 mg 02/28/18 10:00 02/28/18 10:02 Protonix Inj IVP 40 mg DAILY JESSICA Administration Rosuvastatin Calcium 5 mg 02/27/18 22:00 02/27/18 21:40 Crestor PO 5 mg HS JESSICA Administration Sitagliptin Phosphate 50 mg 02/28/18 10:00 02/28/18 10:58 Januvia PO 50 mg DAILY JESSICA Administration - Patient Studies Lab Studies: Lab Studies 02/28/18 02/28/18 02/28/18 Range/Units 08:13 07:26 06:34 WBC 8.4 (4.8-10.8) K/uL RBC 3.63 L (3.80-5.20) Mil/uL Hgb 7.3 L (11.0-16.0) g/dL Hct 24.5 L (34.0-47.0) % MCV 67.6 L (81.0-99.0) fL MCH 20.1 L (27.0-31.0) pg MCHC 29.7 L (33.0-37.0) g/dL RDW 23.2 H (11.5-14.5) % Plt Count 242 (130-400) K/uL MPV 9.2 (7.2-11.7) fL Neut % (Auto) 78.1 H (50.0-75.0) % Lymph % (Auto) 14.0 L (20.0-40.0) % [place] % (Auto) 6.7 (0.0-10.0) % Eos % (Auto) 0.6 (0.0-4.0) % Baso % (Auto) 0.6 (0.0-2.0) % Neut # (Auto) 6.5 (1.8-7.0) K/uL Lymph # (Auto) 1.2 (1.0-4.3) K/uL [place] # (Auto) 0.6 (0.0-0.8) K/uL Eos # (Auto) 0.1 (0.0-0.7) K/uL Baso # (Auto) 0.1 (0.0-0.2) K/uL Differential Comment Retic Count 2.8 H (0.5-1.5) % PT (9.7-12.2) SECONDS INR APTT (21-34) SECONDS Puncture Site pCO2 (35-45) mm/Hg pO2 (80-100) mm/Hg HCO3 (21-28) mmol/L ABG pH (7.35-7.45) ABG Total CO2 (22-28) mmol/L ABG O2 Saturation (95-98) % ABG Base Excess (-2.0-3.0) mmol/L Lester Test ABG Potassium (3.6-5.2) mmol/L A-a O2 Difference mm/Hg Respiratory Index Glucose (65-105) mg/dl Lactate (0.7-2.1) mmol/L Liter Flow FiO2 % Sodium (132-148) mmol/L Potassium (3.6-5.2) mmol/L Chloride (98-107) mmol/L Carbon Dioxide (22-30) mmol/L Anion Gap (10-20) BUN (7-17) mg/dL Creatinine (0.7-1.2) mg/dL Est GFR ( Amer) Est GFR (Non-Af Amer) POC Glucose (mg/dL) 129 H (65-110) mg/dL Random Glucose (65-105) mg/dL Calcium (8.6-10.4) mg/dl Phosphorus (2.5-4.5) mg/dL Magnesium (1.6-2.3) mg/dL Iron 35 L (37-170) ug/dL TIBC 502 H (250-450) ug/dL % Saturation 7 L (20-55) Ferritin ng/mL Total Bilirubin (0.2-1.3) mg/dL AST (14-36) U/L ALT (9-52) U/L Alkaline Phosphatase (38-126) U/L NT-Pro-B Natriuret Pep (0-900) pg/mL Total Protein (6.3-8.3) g/dL Albumin (3.5-5.0) g/dL Globulin (2.2-3.9) gm/dL Albumin/Globulin Ratio (1.0-2.1) Arterial Blood Potassium (3.6-5.2) mmol/L Urine Color (YELLOW) Urine Clarity (Clear) Urine pH (5.0-8.0) Ur Specific [place] (1.003-1.030) Urine Protein (NEGATIVE) mg/dL Urine Glucose (UA) (Normal) mg/dL Urine Ketones (NEGATIVE) mg/dL Urine Blood (NEGATIVE) Urine Nitrate (NEGATIVE) Urine Bilirubin (NEGATIVE) Urine Urobilinogen (0.2-1.0) mg/dL Ur Leukocyte Esterase (Negative) Sadia/uL Urine WBC (Auto) (0-5) /hpf Urine RBC (Auto) (0-3) /hpf Ur Squamous Epith Cells (0-5) /hpf Urine Bacteria (<OCC) Blood Type Antibody Screen 02/28/18 02/28/18 02/27/18 Range/Units 06:30 00:15 21:25 WBC 9.4 (4.8-10.8) K/uL RBC 3.71 L (3.80-5.20) Mil/uL Hgb 7.3 L (11.0-16.0) g/dL Hct 25.0 L (34.0-47.0) % MCV 67.4 L D (81.0-99.0) fL MCH 19.8 L (27.0-31.0) pg MCHC 29.3 L (33.0-37.0) g/dL RDW 23.4 H (11.5-14.5) % Plt Count 273 (130-400) K/uL MPV 9.3 (7.2-11.7) fL Neut % (Auto) 81.1 H (50.0-75.0) % Lymph % (Auto) 11.9 L (20.0-40.0) % [place] % (Auto) 6.3 (0.0-10.0) % Eos % (Auto) 0.4 (0.0-4.0) % Baso % (Auto) 0.3 (0.0-2.0) % Neut # (Auto) 7.7 H (1.8-7.0) K/uL Lymph # (Auto) 1.1 (1.0-4.3) K/uL [place] # (Auto) 0.6 (0.0-0.8) K/uL Eos # (Auto) 0.0 (0.0-0.7) K/uL Baso # (Auto) 0.0 (0.0-0.2) K/uL Differential Comment Retic Count (0.5-1.5) % PT (9.7-12.2) SECONDS INR APTT (21-34) SECONDS Puncture Site pCO2 (35-45) mm/Hg pO2 (80-100) mm/Hg HCO3 (21-28) mmol/L ABG pH (7.35-7.45) ABG Total CO2 (22-28) mmol/L ABG O2 Saturation (95-98) % ABG Base Excess (-2.0-3.0) mmol/L Lester Test ABG Potassium (3.6-5.2) mmol/L A-a O2 Difference mm/Hg Respiratory Index Glucose (65-105) mg/dl Lactate (0.7-2.1) mmol/L Liter Flow FiO2 % Sodium 137 (132-148) mmol/L Potassium 4.5 (3.6-5.2) mmol/L Chloride 97 L (98-107) mmol/L Carbon Dioxide 34 H (22-30) mmol/L Anion Gap 11 (10-20) BUN 20 H (7-17) mg/dL Creatinine 0.7 (0.7-1.2) mg/dL Est GFR ( Amer) > 60 Est GFR (Non-Af Amer) > 60 POC Glucose (mg/dL) 151 H (65-110) mg/dL Random Glucose 120 H (65-105) mg/dL Calcium 8.9 (8.6-10.4) mg/dl Phosphorus 3.6 (2.5-4.5) mg/dL Magnesium 1.6 (1.6-2.3) mg/dL Iron (37-170) ug/dL TIBC (250-450) ug/dL % Saturation (20-55) Ferritin 7.1 ng/mL Total Bilirubin 1.2 (0.2-1.3) mg/dL AST 28 (14-36) U/L ALT 21 (9-52) U/L Alkaline Phosphatase 101 (38-126) U/L NT-Pro-B Natriuret Pep (0-900) pg/mL Total Protein 7.1 (6.3-8.3) g/dL Albumin 3.7 (3.5-5.0) g/dL Globulin 3.3 (2.2-3.9) gm/dL Albumin/Globulin Ratio 1.1 (1.0-2.1) Arterial Blood Potassium (3.6-5.2) mmol/L Urine Color (YELLOW) Urine Clarity (Clear) Urine pH (5.0-8.0) Ur Specific [place] (1.003-1.030) Urine Protein (NEGATIVE) mg/dL Urine Glucose (UA) (Normal) mg/dL Urine Ketones (NEGATIVE) mg/dL Urine Blood (NEGATIVE) Urine Nitrate (NEGATIVE) Urine Bilirubin (NEGATIVE) Urine Urobilinogen (0.2-1.0) mg/dL Ur Leukocyte Esterase (Negative) Sadia/uL Urine WBC (Auto) (0-5) /hpf Urine RBC (Auto) (0-3) /hpf Ur Squamous Epith Cells (0-5) /hpf Urine Bacteria (<OCC) Blood Type Antibody Screen 02/27/18 02/27/18 02/27/18 Range/Units 20:54 15:25 15:25 WBC 9.1 (4.8-10.8) K/uL RBC 3.33 L (3.80-5.20) Mil/uL Hgb 6.1 L* (11.0-16.0) g/dL Hct 21.5 L (34.0-47.0) % MCV 64.5 L (81.0-99.0) fL MCH 18.4 L (27.0-31.0) pg MCHC 28.5 L (33.0-37.0) g/dL RDW 20.7 H (11.5-14.5) % Plt Count 273 (130-400) K/uL MPV 8.7 (7.2-11.7) fL Neut % (Auto) (50.0-75.0) % Lymph % (Auto) (20.0-40.0) % [place] % (Auto) (0.0-10.0) % Eos % (Auto) (0.0-4.0) % Baso % (Auto) (0.0-2.0) % Neut # (Auto) (1.8-7.0) K/uL Lymph # (Auto) (1.0-4.3) K/uL [place] # (Auto) (0.0-0.8) K/uL Eos # (Auto) (0.0-0.7) K/uL Baso # (Auto) (0.0-0.2) K/uL Differential Comment Retic Count (0.5-1.5) % PT (9.7-12.2) SECONDS INR APTT (21-34) SECONDS Puncture Site pCO2 (35-45) mm/Hg pO2 (80-100) mm/Hg HCO3 (21-28) mmol/L ABG pH (7.35-7.45) ABG Total CO2 (22-28) mmol/L ABG O2 Saturation (95-98) % ABG Base Excess (-2.0-3.0) mmol/L Lester Test ABG Potassium (3.6-5.2) mmol/L A-a O2 Difference mm/Hg Respiratory Index Glucose (65-105) mg/dl Lactate (0.7-2.1) mmol/L Liter Flow FiO2 % Sodium (132-148) mmol/L Potassium (3.6-5.2) mmol/L Chloride (98-107) mmol/L Carbon Dioxide (22-30) mmol/L Anion Gap (10-20) BUN (7-17) mg/dL Creatinine (0.7-1.2) mg/dL Est GFR ( Amer) Est GFR (Non-Af Amer) POC Glucose (mg/dL) (65-110) mg/dL Random Glucose (65-105) mg/dL Calcium (8.6-10.4) mg/dl Phosphorus (2.5-4.5) mg/dL Magnesium (1.6-2.3) mg/dL Iron (37-170) ug/dL TIBC (250-450) ug/dL % Saturation (20-55) Ferritin ng/mL Total Bilirubin (0.2-1.3) mg/dL AST (14-36) U/L ALT (9-52) U/L Alkaline Phosphatase (38-126) U/L NT-Pro-B Natriuret Pep (0-900) pg/mL Total Protein (6.3-8.3) g/dL Albumin (3.5-5.0) g/dL Globulin (2.2-3.9) gm/dL Albumin/Globulin Ratio (1.0-2.1) Arterial Blood Potassium (3.6-5.2) mmol/L Urine Color Straw (YELLOW) Urine Clarity Clear (Clear) Urine pH 5.0 (5.0-8.0) Ur Specific [place] 1.004 (1.003-1.030) Urine Protein Negative (NEGATIVE) mg/dL Urine Glucose (UA) Normal (Normal) mg/dL Urine Ketones Negative (NEGATIVE) mg/dL Urine Blood Negative (NEGATIVE) Urine Nitrate Negative (NEGATIVE) Urine Bilirubin Negative (NEGATIVE) Urine Urobilinogen Normal (0.2-1.0) mg/dL Ur Leukocyte Esterase Neg (Negative) Sadia/uL Urine WBC (Auto) < 1 (0-5) /hpf Urine RBC (Auto) < 1 (0-3) /hpf Ur Squamous Epith Cells < 1 (0-5) /hpf Urine Bacteria Rare (<OCC) Blood Type A POSITIVE Antibody Screen Negative 02/27/18 02/27/18 02/27/18 Range/Units 14:32 14:19 14:19 WBC (4.8-10.8) K/uL RBC (3.80-5.20) Mil/uL Hgb (11.0-16.0) g/dL Hct (34.0-47.0) % MCV (81.0-99.0) fL MCH (27.0-31.0) pg MCHC (33.0-37.0) g/dL RDW (11.5-14.5) % Plt Count (130-400) K/uL MPV (7.2-11.7) fL Neut % (Auto) (50.0-75.0) % Lymph % (Auto) (20.0-40.0) % [place] % (Auto) (0.0-10.0) % Eos % (Auto) (0.0-4.0) % Baso % (Auto) (0.0-2.0) % Neut # (Auto) (1.8-7.0) K/uL Lymph # (Auto) (1.0-4.3) K/uL [place] # (Auto) (0.0-0.8) K/uL Eos # (Auto) (0.0-0.7) K/uL Baso # (Auto) (0.0-0.2) K/uL Differential Comment Retic Count (0.5-1.5) % PT 12.5 H (9.7-12.2) SECONDS INR 1.1 APTT 38 H (21-34) SECONDS Puncture Site Rr pCO2 41 (35-45) mm/Hg pO2 195 H (80-100) mm/Hg HCO3 25.9 (21-28) mmol/L ABG pH 7.41 (7.35-7.45) ABG Total CO2 27.3 (22-28) mmol/L ABG O2 Saturation 100.0 H (95-98) % ABG Base Excess 1.2 (-2.0-3.0) mmol/L Lester Test Pos ABG Potassium 4.1 (3.6-5.2) mmol/L A-a O2 Difference 467.0 mm/Hg Respiratory Index 2.4 Glucose 86 (65-105) mg/dl Lactate 1.2 (0.7-2.1) mmol/L Liter Flow 20.0 FiO2 100.0 % Sodium 139.0 136 (132-148) mmol/L Potassium 4.7 (3.6-5.2) mmol/L Chloride 111.0 H 95 L (98-107) mmol/L Carbon Dioxide 27 (22-30) mmol/L Anion Gap 19 (10-20) BUN 24 H (7-17) mg/dL Creatinine 0.9 (0.7-1.2) mg/dL Est GFR ( Amer) > 60 Est GFR (Non-Af Amer) > 60 POC Glucose (mg/dL) (65-110) mg/dL Random Glucose 124 H (65-105) mg/dL Calcium 9.2 (8.6-10.4) mg/dl Phosphorus 2.9 (2.5-4.5) mg/dL Magnesium 1.6 (1.6-2.3) mg/dL Iron (37-170) ug/dL TIBC (250-450) ug/dL % Saturation (20-55) Ferritin ng/mL Total Bilirubin 0.9 (0.2-1.3) mg/dL AST 28 (14-36) U/L ALT 20 (9-52) U/L Alkaline Phosphatase 82 (38-126) U/L NT-Pro-B Natriuret Pep 3040 H (0-900) pg/mL Total Protein 7.2 (6.3-8.3) g/dL Albumin 3.8 (3.5-5.0) g/dL Globulin 3.4 (2.2-3.9) gm/dL Albumin/Globulin Ratio 1.1 (1.0-2.1) Arterial Blood Potassium 4.1 (3.6-5.2) mmol/L Urine Color (YELLOW) Urine Clarity (Clear) Urine pH (5.0-8.0) Ur Specific [place] (1.003-1.030) Urine Protein (NEGATIVE) mg/dL Urine Glucose (UA) (Normal) mg/dL Urine Ketones (NEGATIVE) mg/dL Urine Blood (NEGATIVE) Urine Nitrate (NEGATIVE) Urine Bilirubin (NEGATIVE) Urine Urobilinogen (0.2-1.0) mg/dL Ur Leukocyte Esterase (Negative) Sadia/uL Urine WBC (Auto) (0-5) /hpf Urine RBC (Auto) (0-3) /hpf Ur Squamous Epith Cells (0-5) /hpf Urine Bacteria (<OCC) Blood Type Antibody Screen 02/27/18 Range/Units 14:19 WBC 9.1 (4.8-10.8) K/uL RBC 3.29 L (3.80-5.20) Mil/uL Hgb 6.1 L* D (11.0-16.0) g/dL Hct 21.3 L (34.0-47.0) % MCV 64.9 L D (81.0-99.0) fL MCH 18.5 L (27.0-31.0) pg MCHC 28.5 L (33.0-37.0) g/dL RDW 21.1 H (11.5-14.5) % Plt Count 284 (130-400) K/uL MPV 9.7 (7.2-11.7) fL Neut % (Auto) 80.5 H (50.0-75.0) % Lymph % (Auto) 12.6 L (20.0-40.0) % [place] % (Auto) 5.9 (0.0-10.0) % Eos % (Auto) 0.1 (0.0-4.0) % Baso % (Auto) 0.9 (0.0-2.0) % Neut # (Auto) 7.3 H (1.8-7.0) K/uL Lymph # (Auto) 1.2 (1.0-4.3) K/uL [place] # (Auto) 0.5 (0.0-0.8) K/uL Eos # (Auto) 0.0 (0.0-0.7) K/uL Baso # (Auto) 0.1 (0.0-0.2) K/uL Differential Comment Retic Count (0.5-1.5) % PT (9.7-12.2) SECONDS INR APTT (21-34) SECONDS Puncture Site pCO2 (35-45) mm/Hg pO2 (80-100) mm/Hg HCO3 (21-28) mmol/L ABG pH (7.35-7.45) ABG Total CO2 (22-28) mmol/L ABG O2 Saturation (95-98) % ABG Base Excess (-2.0-3.0) mmol/L Lester Test ABG Potassium (3.6-5.2) mmol/L A-a O2 Difference mm/Hg Respiratory Index Glucose (65-105) mg/dl Lactate (0.7-2.1) mmol/L Liter Flow FiO2 % Sodium (132-148) mmol/L Potassium (3.6-5.2) mmol/L Chloride (98-107) mmol/L Carbon Dioxide (22-30) mmol/L Anion Gap (10-20) BUN (7-17) mg/dL Creatinine (0.7-1.2) mg/dL Est GFR ( Amer) Est GFR (Non-Af Amer) POC Glucose (mg/dL) (65-110) mg/dL Random Glucose (65-105) mg/dL Calcium (8.6-10.4) mg/dl Phosphorus (2.5-4.5) mg/dL Magnesium (1.6-2.3) mg/dL Iron (37-170) ug/dL TIBC (250-450) ug/dL % Saturation (20-55) Ferritin ng/mL Total Bilirubin (0.2-1.3) mg/dL AST (14-36) U/L ALT (9-52) U/L Alkaline Phosphatase (38-126) U/L NT-Pro-B Natriuret Pep (0-900) pg/mL Total Protein (6.3-8.3) g/dL Albumin (3.5-5.0) g/dL Globulin (2.2-3.9) gm/dL Albumin/Globulin Ratio (1.0-2.1) Arterial Blood Potassium (3.6-5.2) mmol/L Urine Color (YELLOW) Urine Clarity (Clear) Urine pH (5.0-8.0) Ur Specific [place] (1.003-1.030) Urine Protein (NEGATIVE) mg/dL Urine Glucose (UA) (Normal) mg/dL Urine Ketones (NEGATIVE) mg/dL Urine Blood (NEGATIVE) Urine Nitrate (NEGATIVE) Urine Bilirubin (NEGATIVE) Urine Urobilinogen (0.2-1.0) mg/dL Ur Leukocyte Esterase (Negative) Sadia/uL Urine WBC (Auto) (0-5) /hpf Urine RBC (Auto) (0-3) /hpf Ur Squamous Epith Cells (0-5) /hpf Urine Bacteria (<OCC) Blood Type Antibody Screen Laboratory Results - last 24 hr 02/27/18 02/27/18 02/27/18 14:19 14:19 14:19 WBC 9.1 RBC 3.29 L Hgb 6.1 L* D Hct 21.3 L MCV 64.9 L D MCH 18.5 L MCHC 28.5 L RDW 21.1 H Plt Count 284 MPV 9.7 Neut % (Auto) 80.5 H Lymph % (Auto) 12.6 L [place] % (Auto) 5.9 Eos % (Auto) 0.1 Baso % (Auto) 0.9 Neut # (Auto) 7.3 H Lymph # (Auto) 1.2 [place] # (Auto) 0.5 Eos # (Auto) 0.0 Baso # (Auto) 0.1 Differential Comment Retic Count PT 12.5 H INR 1.1 APTT 38 H Puncture Site pCO2 pO2 HCO3 ABG pH ABG Total CO2 ABG O2 Saturation ABG Base Excess Lester Test ABG Potassium A-a O2 Difference Respiratory Index Glucose Lactate Liter Flow FiO2 Sodium 136 Potassium 4.7 Chloride 95 L Carbon Dioxide 27 Anion Gap 19 BUN 24 H Creatinine 0.9 Est GFR ( Amer) > 60 Est GFR (Non-Af Amer) > 60 POC Glucose (mg/dL) Random Glucose 124 H Calcium 9.2 Phosphorus 2.9 Magnesium 1.6 Iron TIBC % Saturation Ferritin Total Bilirubin 0.9 AST 28 ALT 20 Alkaline Phosphatase 82 NT-Pro-B Natriuret Pep 3040 H Total Protein 7.2 Albumin 3.8 Globulin 3.4 Albumin/Globulin Ratio 1.1 Arterial Blood Potassium Urine Color Urine Clarity Urine pH Ur Specific [place] Urine Protein Urine Glucose (UA) Urine Ketones Urine Blood Urine Nitrate Urine Bilirubin Urine Urobilinogen Ur Leukocyte Esterase Urine WBC (Auto) Urine RBC (Auto) Ur Squamous Epith Cells Urine Bacteria Blood Type Antibody Screen 02/27/18 02/27/18 02/27/18 14:32 15:25 15:25 WBC 9.1 RBC 3.33 L Hgb 6.1 L* Hct 21.5 L MCV 64.5 L MCH 18.4 L MCHC 28.5 L RDW 20.7 H Plt Count 273 MPV 8.7 Neut % (Auto) Lymph % (Auto) [place] % (Auto) Eos % (Auto) Baso % (Auto) Neut # (Auto) Lymph # (Auto) [place] # (Auto) Eos # (Auto) Baso # (Auto) Differential Comment Retic Count PT INR APTT Puncture Site Rr pCO2 41 pO2 195 H HCO3 25.9 ABG pH 7.41 ABG Total CO2 27.3 ABG O2 Saturation 100.0 H ABG Base Excess 1.2 Lester Test Pos ABG Potassium 4.1 A-a O2 Difference 467.0 Respiratory Index 2.4 Glucose 86 Lactate 1.2 Liter Flow 20.0 FiO2 100.0 Sodium 139.0 Potassium Chloride 111.0 H Carbon Dioxide Anion Gap BUN Creatinine Est GFR ( Amer) Est GFR (Non-Af Amer) POC Glucose (mg/dL) Random Glucose Calcium Phosphorus Magnesium Iron TIBC % Saturation Ferritin Total Bilirubin AST ALT Alkaline Phosphatase NT-Pro-B Natriuret Pep Total Protein Albumin Globulin Albumin/Globulin Ratio Arterial Blood Potassium 4.1 Urine Color Urine Clarity Urine pH Ur Specific [place] Urine Protein Urine Glucose (UA) Urine Ketones Urine Blood Urine Nitrate Urine Bilirubin Urine Urobilinogen Ur Leukocyte Esterase Urine WBC (Auto) Urine RBC (Auto) Ur Squamous Epith Cells Urine Bacteria Blood Type A POSITIVE Antibody Screen Negative 02/27/18 02/27/18 02/28/18 20:54 21:25 00:15 WBC 9.4 RBC 3.71 L Hgb 7.3 L Hct 25.0 L MCV 67.4 L D MCH 19.8 L MCHC 29.3 L RDW 23.4 H Plt Count 273 MPV 9.3 Neut % (Auto) 81.1 H Lymph % (Auto) 11.9 L [place] % (Auto) 6.3 Eos % (Auto) 0.4 Baso % (Auto) 0.3 Neut # (Auto) 7.7 H Lymph # (Auto) 1.1 [place] # (Auto) 0.6 Eos # (Auto) 0.0 Baso # (Auto) 0.0 Differential Comment Retic Count PT INR APTT Puncture Site pCO2 pO2 HCO3 ABG pH ABG Total CO2 ABG O2 Saturation ABG Base Excess Lester Test ABG Potassium A-a O2 Difference Respiratory Index Glucose Lactate Liter Flow FiO2 Sodium Potassium Chloride Carbon Dioxide Anion Gap BUN Creatinine Est GFR ( Amer) Est GFR (Non-Af Amer) POC Glucose (mg/dL) 151 H Random Glucose Calcium Phosphorus Magnesium Iron TIBC % Saturation Ferritin Total Bilirubin AST ALT Alkaline Phosphatase NT-Pro-B Natriuret Pep Total Protein Albumin Globulin Albumin/Globulin Ratio Arterial Blood Potassium Urine Color Straw Urine Clarity Clear Urine pH 5.0 Ur Specific [place] 1.004 Urine Protein Negative Urine Glucose (UA) Normal Urine Ketones Negative Urine Blood Negative Urine Nitrate Negative Urine Bilirubin Negative Urine Urobilinogen Normal Ur Leukocyte Esterase Neg Urine WBC (Auto) < 1 Urine RBC (Auto) < 1 Ur Squamous Epith Cells < 1 Urine Bacteria Rare Blood Type Antibody Screen 02/28/18 02/28/18 02/28/18 06:30 06:34 07:26 WBC 8.4 RBC 3.63 L Hgb 7.3 L Hct 24.5 L MCV 67.6 L MCH 20.1 L MCHC 29.7 L RDW 23.2 H Plt Count 242 MPV 9.2 Neut % (Auto) 78.1 H Lymph % (Auto) 14.0 L [place] % (Auto) 6.7 Eos % (Auto) 0.6 Baso % (Auto) 0.6 Neut # (Auto) 6.5 Lymph # (Auto) 1.2 [place] # (Auto) 0.6 Eos # (Auto) 0.1 Baso # (Auto) 0.1 Differential Comment Retic Count 2.8 H PT INR APTT Puncture Site pCO2 pO2 HCO3 ABG pH ABG Total CO2 ABG O2 Saturation ABG Base Excess Lester Test ABG Potassium A-a O2 Difference Respiratory Index Glucose Lactate Liter Flow FiO2 Sodium 137 Potassium 4.5 Chloride 97 L Carbon Dioxide 34 H Anion Gap 11 BUN 20 H Creatinine 0.7 Est GFR ( Amer) > 60 Est GFR (Non-Af Amer) > 60 POC Glucose (mg/dL) 129 H Random Glucose 120 H Calcium 8.9 Phosphorus 3.6 Magnesium 1.6 Iron TIBC % Saturation Ferritin 7.1 Total Bilirubin 1.2 AST 28 ALT 21 Alkaline Phosphatase 101 NT-Pro-B Natriuret Pep Total Protein 7.1 Albumin 3.7 Globulin 3.3 Albumin/Globulin Ratio 1.1 Arterial Blood Potassium Urine Color Urine Clarity Urine pH Ur Specific [place] Urine Protein Urine Glucose (UA) Urine Ketones Urine Blood Urine Nitrate Urine Bilirubin Urine Urobilinogen Ur Leukocyte Esterase Urine WBC (Auto) Urine RBC (Auto) Ur Squamous Epith Cells Urine Bacteria Blood Type Antibody Screen 02/28/18 08:13 WBC RBC Hgb Hct MCV MCH MCHC RDW Plt Count MPV Neut % (Auto) Lymph % (Auto) [place] % (Auto) Eos % (Auto) Baso % (Auto) Neut # (Auto) Lymph # (Auto) [place] # (Auto) Eos # (Auto) Baso # (Auto) Differential Comment Retic Count PT INR APTT Puncture Site pCO2 pO2 HCO3 ABG pH ABG Total CO2 ABG O2 Saturation ABG Base Excess Lester Test ABG Potassium A-a O2 Difference Respiratory Index Glucose Lactate Liter Flow FiO2 Sodium Potassium Chloride Carbon Dioxide Anion Gap BUN Creatinine Est GFR ( Amer) Est GFR (Non-Af Amer) POC Glucose (mg/dL) Random Glucose Calcium Phosphorus Magnesium Iron 35 L TIBC 502 H % Saturation 7 L Ferritin Total Bilirubin AST ALT Alkaline Phosphatase NT-Pro-B Natriuret Pep Total Protein Albumin Globulin Albumin/Globulin Ratio Arterial Blood Potassium Urine Color Urine Clarity Urine pH Ur Specific [place] Urine Protein Urine Glucose (UA) Urine Ketones Urine Blood Urine Nitrate Urine Bilirubin Urine Urobilinogen Ur Leukocyte Esterase Urine WBC (Auto) Urine RBC (Auto) Ur Squamous Epith Cells Urine Bacteria Blood Type Antibody Screen EKG/Cardiology Studies: Cardiology / EKG Studies 02/27/18 13:54 ELECTROCARDIOGRAM Stat Comment: Mode Of Transportation: BED Reason For Exam: SOB 02/27/18 14:08 ELECTROCARDIOGRAM Stat Comment: Mode Of Transportation: BED Reason For Exam: SOB Fingerstick Blood Sugar Results: 120 Review of Systems - Review of Systems All systems: reviewed and no additional remarkable complaints except Review of Systems: as per HPI Critical Care Progress Note - Nutrition Nutrition: Nutrition Category Date Time Status Heart Healthy Diet [DIET] Diets 02/27/18 Dinner Active Assessment/Plan - Assessment and Plan (Free Text) Assessment: 68 yo F with PMHx including multiple CVA, multiple CA, NIIDM, HTN, HLD admitted to ICU for acute onset CF exacerbation 2/2 anemia. Pt s/p 2 units pRBC transfusion. Plan: Neuro: -patient alert and oriented x3 -no focal neurological deficits noted -c/w home neurontin Pulm: -on vapotherm 100% @ 40L/min -CXR (02/27): Mild central pulmonary venous congestive changes exacerbated in appearance by a poor inspiration. Suspect mild bibasilar atelectasis. CV: -BP 127/59 -BNP 2040 -EKG (02/27): NSR @ 76 bpm -c/w ASA, plavix, statin -c/w lopressor 50 BID -f/u ECHO (02/28) -Cardiology consult (Dr. Bennett) on board -recommend transfusion to Hb 9, holding antiplatelet, BP controlled Heme: -pt s/p 2 units pRBC transfusion, Hb 7.3 -PT/INR: 12.5/1.1 -PTT: 38 -no prior hx anemia, no hx GI bleed -iron 35, TIBC 502, % sat 7 -Heme recs (Dr. Gonzalez) appreciated: workup suggestive of iron deficient anemia, likely 2/2 chronic occult GI blood loss. Will start IV iron infusion. -GI on board Renal: -BUN/Cr stable -electrolytes within normal limits Endo: -A1C: 6.5 -restart home meds GI: -GI recs (Dr. Fuller) appreciated -c/w PPI therapy -anti platelet therapy held due to microcytic anemia -f/u outpatient elective EGD ID: [id number]/u [id number] PPx, Diet, Disposition -GI: pepcid -PT eval on board Case discussed with Dr. Pranay Mercado DO, PGY-1 <Ricky Pires - Last Filed: 02/28/18 19:06> CCU Objective - Vital Signs / Intake & Output Vital Signs (Last 4 hours): Vital Signs Temp Pulse Resp BP Pulse Ox 02/28/18 17:10 69 27 H 02/28/18 17:00 69 27 H 02/28/18 16:50 70 28 H 02/28/18 16:40 71 24 100 02/28/18 16:30 71 22 100 02/28/18 16:22 19 02/28/18 16:20 68 19 100 02/28/18 16:10 68 13 99 02/28/18 16:00 99.8 F H 68 14 96 02/28/18 15:50 68 18 99 02/28/18 15:40 67 22 99 02/28/18 15:36 66 22 138/78 94 L 02/28/18 15:30 98.1 F 66 21 137/78 99 02/28/18 15:20 65 19 94 L 02/28/18 15:10 69 11 L 95 Intake and Output (Last 8hrs): Intake & Output 02/28/18 02/28/18 02/28/18 06:59 14:59 22:59 Intake Total 0 1700 1470 Output Total 600 1700 700 Balance -600 0 770 Weight 213 lb 9.6 oz Intake: Intake, IV Amount 20 100 LEFT AC 100 Right Hand 10 left ac 10 Oral 0 980 720 Blood Product 650 650 Red Blood Cells Cpd As1 0 325 Lr Unit [id number] Red Blood Cells Cpd As1 325 Lr Unit [id number] Other 50 Red Blood Cells Cpd As1 50 Lr Unit [id number] Output: Urine 600 1700 700 Urine, Voided 600 1700 700 - Medications Active Medications: Active Medications Generic Name Dose Route Start Last Admin Trade Name Freq PRN Reason Stop Dose Admin Aspirin 81 mg 02/28/18 10:00 02/28/18 10:03 Ecotrin PO Not Given DAILY JESSICA Clopidogrel Bisulfate 75 mg 02/28/18 10:00 02/28/18 10:03 Plavix PO Not Given DAILY JESSICA Gabapentin 600 mg 02/28/18 10:00 02/28/18 10:03 Neurontin PO 600 mg DAILY JESSICA Administration Ferric Sodium Gluconate 110 mls @ 110 mls/hr 02/28/18 14:00 02/28/18 14:00 Complex 125 mg/ Sodium IVPB 03/08/18 14:01 110 mls/hr Chloride Q24H JESSICA Administration Metoprolol Tartrate 50 mg 02/27/18 18:00 02/28/18 18:27 Lopressor PO 50 mg BID JESSICA Administration Pantoprazole Sodium 40 mg 02/28/18 10:00 02/28/18 10:02 Protonix Inj IVP 40 mg DAILY JESSICA Administration Polyethylene Glycol 17 gm 02/28/18 15:33 02/28/18 18:27 Miralax PO 17 gm BID PRN Administration Constipation Rosuvastatin Calcium 5 mg 02/27/18 22:00 02/27/18 21:40 Crestor PO 5 mg HS JESSICA Administration Sitagliptin Phosphate 50 mg 02/28/18 10:00 02/28/18 10:58 Januvia PO 50 mg DAILY JESSICA Administration - Patient Studies Lab Studies: Microbiology Studies 02/27/18 15:59 Blood Culture - Preliminary Blood NO GROWTH AFTER 24 HOURS 02/27/18 15:05 Blood Culture - Preliminary Blood NO GROWTH AFTER 24 HOURS Lab Studies 02/28/18 02/28/18 02/28/18 Range/Units 17:42 16:13 12:26 WBC (4.8-10.8) K/uL RBC (3.80-5.20) Mil/uL Hgb (11.0-16.0) g/dL Hct (34.0-47.0) % MCV (81.0-99.0) fL MCH (27.0-31.0) pg MCHC (33.0-37.0) g/dL RDW (11.5-14.5) % Plt Count (130-400) K/uL MPV (7.2-11.7) fL Neut % (Auto) (50.0-75.0) % Lymph % (Auto) (20.0-40.0) % [place] % (Auto) (0.0-10.0) % Eos % (Auto) (0.0-4.0) % Baso % (Auto) (0.0-2.0) % Neut # (Auto) (1.8-7.0) K/uL Lymph # (Auto) (1.0-4.3) K/uL [place] # (Auto) (0.0-0.8) K/uL Eos # (Auto) (0.0-0.7) K/uL Baso # (Auto) (0.0-0.2) K/uL Differential Comment Retic Count (0.5-1.5) % Sodium (132-148) mmol/L Potassium (3.6-5.2) mmol/L Chloride (98-107) mmol/L Carbon Dioxide (22-30) mmol/L Anion Gap (10-20) BUN (7-17) mg/dL Creatinine (0.7-1.2) mg/dL Est GFR ( Amer) Est GFR (Non-Af Amer) POC Glucose (mg/dL) 125 H 141 H (65-110) mg/dL Random Glucose (65-105) mg/dL Calcium (8.6-10.4) mg/dl Phosphorus (2.5-4.5) mg/dL Magnesium (1.6-2.3) mg/dL Iron (37-170) ug/dL TIBC (250-450) ug/dL % Saturation (20-55) Ferritin ng/mL Total Bilirubin (0.2-1.3) mg/dL AST (14-36) U/L ALT (9-52) U/L Alkaline Phosphatase (38-126) U/L Total Protein (6.3-8.3) g/dL Albumin (3.5-5.0) g/dL Globulin (2.2-3.9) gm/dL Albumin/Globulin Ratio (1.0-2.1) Urine Color (YELLOW) Urine Clarity (Clear) Urine pH (5.0-8.0) Ur Specific [place] (1.003-1.030) Urine Protein (NEGATIVE) mg/dL Urine Glucose (UA) (Normal) mg/dL Urine Ketones (NEGATIVE) mg/dL Urine Blood (NEGATIVE) Urine Nitrate (NEGATIVE) Urine Bilirubin (NEGATIVE) Urine Urobilinogen (0.2-1.0) mg/dL Ur Leukocyte Esterase (Negative) [place]/uL Urine WBC (Auto) (0-5) /hpf Urine RBC (Auto) (0-3) /hpf Ur Squamous Epith Cells (0-5) /hpf Urine Bacteria (<OCC) Stool Occult Blood Negative (NEGATIVE) Blood Type Antibody Screen 02/28/18 02/28/18 02/28/18 Range/Units 08:13 07:26 06:34 WBC 8.4 (4.8-10.8) K/uL RBC 3.63 L (3.80-5.20) Mil/uL Hgb 7.3 L (11.0-16.0) g/dL Hct 24.5 L (34.0-47.0) % MCV 67.6 L (81.0-99.0) fL MCH 20.1 L (27.0-31.0) pg MCHC 29.7 L (33.0-37.0) g/dL RDW 23.2 H (11.5-14.5) % Plt Count 242 (130-400) K/uL MPV 9.2 (7.2-11.7) fL Neut % (Auto) 78.1 H (50.0-75.0) % Lymph % (Auto) 14.0 L (20.0-40.0) % [place] % (Auto) 6.7 (0.0-10.0) % Eos % (Auto) 0.6 (0.0-4.0) % Baso % (Auto) 0.6 (0.0-2.0) % Neut # (Auto) 6.5 (1.8-7.0) K/uL Lymph # (Auto) 1.2 (1.0-4.3) K/uL [place] # (Auto) 0.6 (0.0-0.8) K/uL Eos # (Auto) 0.1 (0.0-0.7) K/uL Baso # (Auto) 0.1 (0.0-0.2) K/uL Differential Comment Retic Count 2.8 H (0.5-1.5) % Sodium (132-148) mmol/L Potassium (3.6-5.2) mmol/L Chloride (98-107) mmol/L Carbon Dioxide (22-30) mmol/L Anion Gap (10-20) BUN (7-17) mg/dL Creatinine (0.7-1.2) mg/dL Est GFR ( Amer) Est GFR (Non-Af Amer) POC Glucose (mg/dL) 129 H (65-110) mg/dL Random Glucose (65-105) mg/dL Calcium (8.6-10.4) mg/dl Phosphorus (2.5-4.5) mg/dL Magnesium (1.6-2.3) mg/dL Iron 35 L (37-170) ug/dL TIBC 502 H (250-450) ug/dL % Saturation 7 L (20-55) Ferritin ng/mL Total Bilirubin (0.2-1.3) mg/dL AST (14-36) U/L ALT (9-52) U/L Alkaline Phosphatase (38-126) U/L Total Protein (6.3-8.3) g/dL Albumin (3.5-5.0) g/dL Globulin (2.2-3.9) gm/dL Albumin/Globulin Ratio (1.0-2.1) Urine Color (YELLOW) Urine Clarity (Clear) Urine pH (5.0-8.0) Ur Specific [place] (1.003-1.030) Urine Protein (NEGATIVE) mg/dL Urine Glucose (UA) (Normal) mg/dL Urine Ketones (NEGATIVE) mg/dL Urine Blood (NEGATIVE) Urine Nitrate (NEGATIVE) Urine Bilirubin (NEGATIVE) Urine Urobilinogen (0.2-1.0) mg/dL Ur Leukocyte Esterase (Negative) [place]/uL Urine WBC (Auto) (0-5) /hpf Urine RBC (Auto) (0-3) /hpf Ur Squamous Epith Cells (0-5) /hpf Urine Bacteria (<OCC) Stool Occult Blood (NEGATIVE) Blood Type Antibody Screen 02/28/18 02/28/18 02/27/18 Range/Units 06:30 00:15 21:25 WBC 9.4 (4.8-10.8) K/uL RBC 3.71 L (3.80-5.20) Mil/uL Hgb 7.3 L (11.0-16.0) g/dL Hct 25.0 L (34.0-47.0) % MCV 67.4 L D (81.0-99.0) fL MCH 19.8 L (27.0-31.0) pg MCHC 29.3 L (33.0-37.0) g/dL RDW 23.4 H (11.5-14.5) % Plt Count 273 (130-400) K/uL MPV 9.3 (7.2-11.7) fL Neut % (Auto) 81.1 H (50.0-75.0) % Lymph % (Auto) 11.9 L (20.0-40.0) % [place] % (Auto) 6.3 (0.0-10.0) % Eos % (Auto) 0.4 (0.0-4.0) % Baso % (Auto) 0.3 (0.0-2.0) % Neut # (Auto) 7.7 H (1.8-7.0) K/uL Lymph # (Auto) 1.1 (1.0-4.3) K/uL [place] # (Auto) 0.6 (0.0-0.8) K/uL Eos # (Auto) 0.0 (0.0-0.7) K/uL Baso # (Auto) 0.0 (0.0-0.2) K/uL Differential Comment Retic Count (0.5-1.5) % Sodium 137 (132-148) mmol/L Potassium 4.5 (3.6-5.2) mmol/L Chloride 97 L (98-107) mmol/L Carbon Dioxide 34 H (22-30) mmol/L Anion Gap 11 (10-20) BUN 20 H (7-17) mg/dL Creatinine 0.7 (0.7-1.2) mg/dL Est GFR ( Amer) > 60 Est GFR (Non-Af Amer) > 60 POC Glucose (mg/dL) 151 H (65-110) mg/dL Random Glucose 120 H (65-105) mg/dL Calcium 8.9 (8.6-10.4) mg/dl Phosphorus 3.6 (2.5-4.5) mg/dL Magnesium 1.6 (1.6-2.3) mg/dL Iron (37-170) ug/dL TIBC (250-450) ug/dL % Saturation (20-55) Ferritin 7.1 ng/mL Total Bilirubin 1.2 (0.2-1.3) mg/dL AST 28 (14-36) U/L ALT 21 (9-52) U/L Alkaline Phosphatase 101 (38-126) U/L Total Protein 7.1 (6.3-8.3) g/dL Albumin 3.7 (3.5-5.0) g/dL Globulin 3.3 (2.2-3.9) gm/dL Albumin/Globulin Ratio 1.1 (1.0-2.1) Urine Color (YELLOW) Urine Clarity (Clear) Urine pH (5.0-8.0) Ur Specific [place] (1.003-1.030) Urine Protein (NEGATIVE) mg/dL Urine Glucose (UA) (Normal) mg/dL Urine Ketones (NEGATIVE) mg/dL Urine Blood (NEGATIVE) Urine Nitrate (NEGATIVE) Urine Bilirubin (NEGATIVE) Urine Urobilinogen (0.2-1.0) mg/dL Ur Leukocyte Esterase (Negative) [place]/uL Urine WBC (Auto) (0-5) /hpf Urine RBC (Auto) (0-3) /hpf Ur Squamous Epith Cells (0-5) /hpf Urine Bacteria (<OCC) Stool Occult Blood (NEGATIVE) Blood Type Antibody Screen 02/27/18 02/27/18 02/27/18 Range/Units 20:54 15:25 14:19 WBC 9.1 (4.8-10.8) K/uL RBC 3.29 L (3.80-5.20) Mil/uL Hgb 6.1 L* D (11.0-16.0) g/dL Hct 21.3 L (34.0-47.0) % MCV 64.9 L D (81.0-99.0) fL MCH 18.5 L (27.0-31.0) pg MCHC 28.5 L (33.0-37.0) g/dL RDW 21.1 H (11.5-14.5) % Plt Count 284 (130-400) K/uL MPV 9.7 (7.2-11.7) fL Neut % (Auto) 80.5 H (50.0-75.0) % Lymph % (Auto) 12.6 L (20.0-40.0) % [place] % (Auto) 5.9 (0.0-10.0) % Eos % (Auto) 0.1 (0.0-4.0) % Baso % (Auto) 0.9 (0.0-2.0) % Neut # (Auto) 7.3 H (1.8-7.0) K/uL Lymph # (Auto) 1.2 (1.0-4.3) K/uL [place] # (Auto) 0.5 (0.0-0.8) K/uL Eos # (Auto) 0.0 (0.0-0.7) K/uL Baso # (Auto) 0.1 (0.0-0.2) K/uL Differential Comment Retic Count (0.5-1.5) % Sodium (132-148) mmol/L Potassium (3.6-5.2) mmol/L Chloride (98-107) mmol/L Carbon Dioxide (22-30) mmol/L Anion Gap (10-20) BUN (7-17) mg/dL Creatinine (0.7-1.2) mg/dL Est GFR ( Amer) Est GFR (Non-Af Amer) POC Glucose (mg/dL) (65-110) mg/dL Random Glucose (65-105) mg/dL Calcium (8.6-10.4) mg/dl Phosphorus (2.5-4.5) mg/dL Magnesium (1.6-2.3) mg/dL Iron (37-170) ug/dL TIBC (250-450) ug/dL % Saturation (20-55) Ferritin ng/mL Total Bilirubin (0.2-1.3) mg/dL AST (14-36) U/L ALT (9-52) U/L Alkaline Phosphatase (38-126) U/L Total Protein (6.3-8.3) g/dL Albumin (3.5-5.0) g/dL Globulin (2.2-3.9) gm/dL Albumin/Globulin Ratio (1.0-2.1) Urine Color Straw (YELLOW) Urine Clarity Clear (Clear) Urine pH 5.0 (5.0-8.0) Ur Specific [place] 1.004 (1.003-1.030) Urine Protein Negative (NEGATIVE) mg/dL Urine Glucose (UA) Normal (Normal) mg/dL Urine Ketones Negative (NEGATIVE) mg/dL Urine Blood Negative (NEGATIVE) Urine Nitrate Negative (NEGATIVE) Urine Bilirubin Negative (NEGATIVE) Urine Urobilinogen Normal (0.2-1.0) mg/dL Ur Leukocyte Esterase Neg (Negative) [place]/uL Urine WBC (Auto) < 1 (0-5) /hpf Urine RBC (Auto) < 1 (0-3) /hpf Ur Squamous Epith Cells < 1 (0-5) /hpf Urine Bacteria Rare (<OCC) Stool Occult Blood (NEGATIVE) Blood Type A POSITIVE Antibody Screen Negative Laboratory Results - last 24 hr 02/27/18 02/27/18 02/27/18 14:19 15:25 20:54 WBC 9.1 RBC 3.29 L Hgb 6.1 L* D Hct 21.3 L MCV 64.9 L D MCH 18.5 L MCHC 28.5 L RDW 21.1 H Plt Count 284 MPV 9.7 Neut % (Auto) 80.5 H Lymph % (Auto) 12.6 L [place] % (Auto) 5.9 Eos % (Auto) 0.1 Baso % (Auto) 0.9 Neut # (Auto) 7.3 H Lymph # (Auto) 1.2 [place] # (Auto) 0.5 Eos # (Auto) 0.0 Baso # (Auto) 0.1 Differential Comment Retic Count Sodium Potassium Chloride Carbon Dioxide Anion Gap BUN Creatinine Est GFR ( Amer) Est GFR (Non-Af Amer) POC Glucose (mg/dL) Random Glucose Calcium Phosphorus Magnesium Iron TIBC % Saturation Ferritin Total Bilirubin AST ALT Alkaline Phosphatase Total Protein Albumin Globulin Albumin/Globulin Ratio Urine Color Straw Urine Clarity Clear Urine pH 5.0 Ur Specific [place] 1.004 Urine Protein Negative Urine Glucose (UA) Normal Urine Ketones Negative Urine Blood Negative Urine Nitrate Negative Urine Bilirubin Negative Urine Urobilinogen Normal Ur Leukocyte Esterase Neg Urine WBC (Auto) < 1 Urine RBC (Auto) < 1 Ur Squamous Epith Cells < 1 Urine Bacteria Rare Stool Occult Blood Blood Type A POSITIVE Antibody Screen Negative 02/27/18 02/28/18 02/28/18 21:25 00:15 06:30 WBC 9.4 RBC 3.71 L Hgb 7.3 L Hct 25.0 L MCV 67.4 L D MCH 19.8 L MCHC 29.3 L RDW 23.4 H Plt Count 273 MPV 9.3 Neut % (Auto) 81.1 H Lymph % (Auto) 11.9 L [place] % (Auto) 6.3 Eos % (Auto) 0.4 Baso % (Auto) 0.3 Neut # (Auto) 7.7 H Lymph # (Auto) 1.1 [place] # (Auto) 0.6 Eos # (Auto) 0.0 Baso # (Auto) 0.0 Differential Comment Retic Count Sodium 137 Potassium 4.5 Chloride 97 L Carbon Dioxide 34 H Anion Gap 11 BUN 20 H Creatinine 0.7 Est GFR ( Amer) > 60 Est GFR (Non-Af Amer) > 60 POC Glucose (mg/dL) 151 H Random Glucose 120 H Calcium 8.9 Phosphorus 3.6 Magnesium 1.6 Iron TIBC % Saturation Ferritin 7.1 Total Bilirubin 1.2 AST 28 ALT 21 Alkaline Phosphatase 101 Total Protein 7.1 Albumin 3.7 Globulin 3.3 Albumin/Globulin Ratio 1.1 Urine Color Urine Clarity Urine pH Ur Specific [place] Urine Protein Urine Glucose (UA) Urine Ketones Urine Blood Urine Nitrate Urine Bilirubin Urine Urobilinogen Ur Leukocyte Esterase Urine WBC (Auto) Urine RBC (Auto) Ur Squamous Epith Cells Urine Bacteria Stool Occult Blood Blood Type Antibody Screen 02/28/18 02/28/18 02/28/18 06:34 07:26 08:13 WBC 8.4 RBC 3.63 L Hgb 7.3 L Hct 24.5 L MCV 67.6 L MCH 20.1 L MCHC 29.7 L RDW 23.2 H Plt Count 242 MPV 9.2 Neut % (Auto) 78.1 H Lymph % (Auto) 14.0 L [place] % (Auto) 6.7 Eos % (Auto) 0.6 Baso % (Auto) 0.6 Neut # (Auto) 6.5 Lymph # (Auto) 1.2 [place] # (Auto) 0.6 Eos # (Auto) 0.1 Baso # (Auto) 0.1 Differential Comment Retic Count 2.8 H Sodium Potassium Chloride Carbon Dioxide Anion Gap BUN Creatinine Est GFR ( Amer) Est GFR (Non-Af Amer) POC Glucose (mg/dL) 129 H Random Glucose Calcium Phosphorus Magnesium Iron 35 L TIBC 502 H % Saturation 7 L Ferritin Total Bilirubin AST ALT Alkaline Phosphatase Total Protein Albumin Globulin Albumin/Globulin Ratio Urine Color Urine Clarity Urine pH Ur Specific [place] Urine Protein Urine Glucose (UA) Urine Ketones Urine Blood Urine Nitrate Urine Bilirubin Urine Urobilinogen Ur Leukocyte Esterase Urine WBC (Auto) Urine RBC (Auto) Ur Squamous Epith Cells Urine Bacteria Stool Occult Blood Blood Type Antibody Screen 02/28/18 02/28/18 02/28/18 12:26 16:13 17:42 WBC RBC Hgb Hct MCV MCH MCHC RDW Plt Count MPV Neut % (Auto) Lymph % (Auto) [place] % (Auto) Eos % (Auto) Baso % (Auto) Neut # (Auto) Lymph # (Auto) [place] # (Auto) Eos # (Auto) Baso # (Auto) Differential Comment Retic Count Sodium Potassium Chloride Carbon Dioxide Anion Gap BUN Creatinine Est GFR ( Amer) Est GFR (Non-Af Amer) POC Glucose (mg/dL) 141 H 125 H Random Glucose Calcium Phosphorus Magnesium Iron TIBC % Saturation Ferritin Total Bilirubin AST ALT Alkaline Phosphatase Total Protein Albumin Globulin Albumin/Globulin Ratio Urine Color Urine Clarity Urine pH Ur Specific [place] Urine Protein Urine Glucose (UA) Urine Ketones Urine Blood Urine Nitrate Urine Bilirubin Urine Urobilinogen Ur Leukocyte Esterase Urine WBC (Auto) Urine RBC (Auto) Ur Squamous Epith Cells Urine Bacteria Stool Occult Blood Negative Blood Type Antibody Screen Critical Care Progress Note - Nutrition Nutrition: Nutrition Category Date Time Status Heart Healthy Diet [DIET] Diets 02/27/18 Dinner Active Attending/Attestation - Attestation I have personally seen and examined this patient.: Yes I have fully participated in the care of the patient.: Yes I have reviewed all pertinent clinical information: Yes Notes (Text): 02/28/18 19:05 patient seen and examined in the intensive care unit. Assessment and plan as per resident note Transfuse packed RBCs and IV iron Hematology consult Continue present treatment
[2018-02-28] MEDS: Ferric Sodium Gluconat Complex 125 MG in Sodium Chloride 0.9% 100 ML IVPB SCH (14:00)
--- NOTE | 2018-02-28 14:34 | CP.PCM.CON ---
History of Present Illness - History of Present Illness History of Present Illness: 68 year old female with a history of multiple CVA's , CAD s/p AK's, HTN, HL, DM, Horners syndrome, presenting with progressive shortness of breath and cough, found to be anemic. The patient reports to worsening dyspnea with exertion and cough, associated with subjective fevers and chills. She denies abnormal bleeding and bruising. She was noted to have a hgb of 6.3 and is undergoing PRBC transfusion. PMHx: CVA's , CAD s/p AK's, HTN, HL, DM, Horners syndrome PSHx: Left ankle surgery, right eye surgery, right ovarian cyst surgery, spinal cord stimulator surgery Family history: Sister had uterine cancer Social history: 5 cigarettes daily x 40 years Allergies: Pregabalin Review of systems: All remaining review of systems including HEENT, cardiovascular, respiratory, gastrointestinal, genitourinary, musculoskeletal, dermatologic, neurologic, and psychiatric are negative unless mentioned in the HPI. 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, 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 brreaking since 2012, wears eyeglasses - RENAL Hx Chronic Kidney Disease: No - ENDOCRINE/METABOLIC Hx Endocrine Disorders: Yes Hx Diabetes Mellitus Type 1: Yes (dx 02/2013) Other/Comment: was in a diabetic coma 9 days 2013 - HEMATOLOGICAL/ONCOLOGICAL Hx Blood Disorders: No - INTEGUMENTARY Hx Dermatological Problems: No - MUSCULOSKELETAL/RHEUMATOLOGICAL Hx Arthritis: Yes Hx Falls: No Hx Herniated Disk: Yes (cervical) Other/Comment: bursitis, left knee surgery - GASTROINTESTINAL Hx Gastrointestinal Disorders: Yes (obese) - GENITOURINARY/GYNECOLOGICAL Hx Incontinence: Yes (uses depends) Other/Comment: ovarian cyst removed - PSYCHIATRIC Hx Substance Use: No - SURGICAL HISTORY Hx Cardiac Catheterization: Yes Hx Eye Surgery: Yes Hx Musculoskeletal Surgery: Yes (LEFT ANKLE SURGERY from fall) Other/Comment: hardware removed left ankle, ovarian cyst removed, spinal cord implant styimulator at [facility] [address] moe - ANESTHESIA Hx Anesthesia: Yes Hx Anesthesia Reactions: Yes (pt doesn't remember) Hx Malignant Hyperthermia: No Has any member of the family had a problem w/ anesthesia?: No Meds Allergies/Adverse Reactions: Allergies Allergy/AdvReac Type Severity Reaction Status Date / Time pregabalin [From Lyrica] Allergy ANGIOEDEMA Verified 01/15/17 19:27 - Medications Medications: Current Medications Aspirin (Ecotrin) 81 mg PO DAILY [facility] Last Admin: 02/28/18 10:03 Dose: Not Given Clopidogrel Bisulfate (Plavix) 75 mg PO DAILY [facility] Last Admin: 02/28/18 10:03 Dose: Not Given Gabapentin (Neurontin) 600 mg PO DAILY [facility] Last Admin: 02/28/18 10:03 Dose: 600 mg Ferric Sodium Gluconate Complex 125 mg/ Sodium Chloride 110 mls @ 110 mls/hr IVPB Q24H [facility] Stop: 03/08/18 14:01 Metoprolol Tartrate (Lopressor) 50 mg PO BID [facility] Last Admin: 02/28/18 10:03 Dose: 50 mg Pantoprazole Sodium (Protonix Inj) 40 mg IVP DAILY [facility] Last Admin: 02/28/18 10:02 Dose: 40 mg Rosuvastatin Calcium (Crestor) 5 mg PO HS [facility] Last Admin: 02/27/18 21:40 Dose: 5 mg Sitagliptin Phosphate (Januvia) 50 mg PO DAILY [facility] Last Admin: 02/28/18 10:58 Dose: 50 mg Physical Exam - Head Exam Head Exam: ATRAUMATIC - Eye Exam Eye Exam: Normal appearance - ENT Exam ENT Exam: Mucous Membranes Dry - Respiratory Exam Respiratory Exam: NORMAL BREATHING PATTERN - Cardiovascular Exam Cardiovascular Exam: +S1, +S2 - GI/Abdominal Exam GI & Abdominal Exam: Normal Bowel Sounds - Neurological Exam Neurological exam: Oriented x3 - Psychiatric Exam Psychiatric exam: Normal Affect, Normal Mood - Skin Skin Exam: Warm Results - Vital Signs Recent Vital Signs: Last Vital Signs Temp 98.4 F 02/28/18 13:21 Pulse 72 02/28/18 13:33 Resp 16 02/28/18 14:00 BP 144/73 02/28/18 13:33 Pulse Ox 99 02/28/18 13:33 - Labs Result Diagrams: 02/28/18 06:34 02/28/18 06:30 Labs: Laboratory Results - last 24 hr 02/27/18 02/27/18 02/27/18 14:19 14:19 14:19 WBC 9.1 RBC 3.29 L Hgb 6.1 L* D Hct 21.3 L MCV 64.9 L D MCH 18.5 L MCHC 28.5 L RDW 21.1 H Plt Count 284 MPV 9.7 Neut % (Auto) 80.5 H Lymph % (Auto) 12.6 L [place] % (Auto) 5.9 Eos % (Auto) 0.1 Baso % (Auto) 0.9 Neut # (Auto) 7.3 H Lymph # (Auto) 1.2 [place] # (Auto) 0.5 Eos # (Auto) 0.0 Baso # (Auto) 0.1 Differential Comment Retic Count PT 12.5 H INR 1.1 APTT 38 H Puncture Site pCO2 pO2 HCO3 ABG pH ABG Total CO2 ABG O2 Saturation ABG Base Excess Lester Test ABG Potassium A-a O2 Difference Respiratory Index Glucose Lactate Liter Flow FiO2 Sodium 136 Potassium 4.7 Chloride 95 L Carbon Dioxide 27 Anion Gap 19 BUN 24 H Creatinine 0.9 Est GFR ( Amer) > 60 Est GFR (Non-Af Amer) > 60 POC Glucose (mg/dL) Random Glucose 124 H Calcium 9.2 Phosphorus 2.9 Magnesium 1.6 Iron TIBC % Saturation Ferritin Total Bilirubin 0.9 AST 28 ALT 20 Alkaline Phosphatase 82 NT-Pro-B Natriuret Pep 3040 H Total Protein 7.2 Albumin 3.8 Globulin 3.4 Albumin/Globulin Ratio 1.1 Arterial Blood Potassium Urine Color Urine Clarity Urine pH Ur Specific [place] Urine Protein Urine Glucose (UA) Urine Ketones Urine Blood Urine Nitrate Urine Bilirubin Urine Urobilinogen Ur Leukocyte Esterase Urine WBC (Auto) Urine RBC (Auto) Ur Squamous Epith Cells Urine Bacteria Blood Type Antibody Screen 02/27/18 02/27/18 02/27/18 14:32 15:25 15:25 WBC 9.1 RBC 3.33 L Hgb 6.1 L* Hct 21.5 L MCV 64.5 L MCH 18.4 L MCHC 28.5 L RDW 20.7 H Plt Count 273 MPV 8.7 Neut % (Auto) Lymph % (Auto) [place] % (Auto) Eos % (Auto) Baso % (Auto) Neut # (Auto) Lymph # (Auto) [place] # (Auto) Eos # (Auto) Baso # (Auto) Differential Comment Retic Count PT INR APTT Puncture Site Rr pCO2 41 pO2 195 H HCO3 25.9 ABG pH 7.41 ABG Total CO2 27.3 ABG O2 Saturation 100.0 H ABG Base Excess 1.2 Lester Test Pos ABG Potassium 4.1 A-a O2 Difference 467.0 Respiratory Index 2.4 Glucose 86 Lactate 1.2 Liter Flow 20.0 FiO2 100.0 Sodium 139.0 Potassium Chloride 111.0 H Carbon Dioxide Anion Gap BUN Creatinine Est GFR ( Amer) Est GFR (Non-Af Amer) POC Glucose (mg/dL) Random Glucose Calcium Phosphorus Magnesium Iron TIBC % Saturation Ferritin Total Bilirubin AST ALT Alkaline Phosphatase NT-Pro-B Natriuret Pep Total Protein Albumin Globulin Albumin/Globulin Ratio Arterial Blood Potassium 4.1 Urine Color Urine Clarity Urine pH Ur Specific [place] Urine Protein Urine Glucose (UA) Urine Ketones Urine Blood Urine Nitrate Urine Bilirubin Urine Urobilinogen Ur Leukocyte Esterase Urine WBC (Auto) Urine RBC (Auto) Ur Squamous Epith Cells Urine Bacteria Blood Type A POSITIVE Antibody Screen Negative 02/27/18 02/27/18 02/28/18 20:54 21:25 00:15 WBC 9.4 RBC 3.71 L Hgb 7.3 L Hct 25.0 L MCV 67.4 L D MCH 19.8 L MCHC 29.3 L RDW 23.4 H Plt Count 273 MPV 9.3 Neut % (Auto) 81.1 H Lymph % (Auto) 11.9 L [place] % (Auto) 6.3 Eos % (Auto) 0.4 Baso % (Auto) 0.3 Neut # (Auto) 7.7 H Lymph # (Auto) 1.1 [place] # (Auto) 0.6 Eos # (Auto) 0.0 Baso # (Auto) 0.0 Differential Comment Retic Count PT INR APTT Puncture Site pCO2 pO2 HCO3 ABG pH ABG Total CO2 ABG O2 Saturation ABG Base Excess Lester Test ABG Potassium A-a O2 Difference Respiratory Index Glucose Lactate Liter Flow FiO2 Sodium Potassium Chloride Carbon Dioxide Anion Gap BUN Creatinine Est GFR ( Amer) Est GFR (Non-Af Amer) POC Glucose (mg/dL) 151 H Random Glucose Calcium Phosphorus Magnesium Iron TIBC % Saturation Ferritin Total Bilirubin AST ALT Alkaline Phosphatase NT-Pro-B Natriuret Pep Total Protein Albumin Globulin Albumin/Globulin Ratio Arterial Blood Potassium Urine Color Straw Urine Clarity Clear Urine pH 5.0 Ur Specific [place] 1.004 Urine Protein Negative Urine Glucose (UA) Normal Urine Ketones Negative Urine Blood Negative Urine Nitrate Negative Urine Bilirubin Negative Urine Urobilinogen Normal Ur Leukocyte Esterase Neg Urine WBC (Auto) < 1 Urine RBC (Auto) < 1 Ur Squamous Epith Cells < 1 Urine Bacteria Rare Blood Type Antibody Screen 02/28/18 02/28/18 02/28/18 06:30 06:34 07:26 WBC 8.4 RBC 3.63 L Hgb 7.3 L Hct 24.5 L MCV 67.6 L MCH 20.1 L MCHC 29.7 L RDW 23.2 H Plt Count 242 MPV 9.2 Neut % (Auto) 78.1 H Lymph % (Auto) 14.0 L [place] % (Auto) 6.7 Eos % (Auto) 0.6 Baso % (Auto) 0.6 Neut # (Auto) 6.5 Lymph # (Auto) 1.2 [place] # (Auto) 0.6 Eos # (Auto) 0.1 Baso # (Auto) 0.1 Differential Comment Retic Count 2.8 H PT INR APTT Puncture Site pCO2 pO2 HCO3 ABG pH ABG Total CO2 ABG O2 Saturation ABG Base Excess Lester Test ABG Potassium A-a O2 Difference Respiratory Index Glucose Lactate Liter Flow FiO2 Sodium 137 Potassium 4.5 Chloride 97 L Carbon Dioxide 34 H Anion Gap 11 BUN 20 H Creatinine 0.7 Est GFR ( Amer) > 60 Est GFR (Non-Af Amer) > 60 POC Glucose (mg/dL) 129 H Random Glucose 120 H Calcium 8.9 Phosphorus 3.6 Magnesium 1.6 Iron TIBC % Saturation Ferritin 7.1 Total Bilirubin 1.2 AST 28 ALT 21 Alkaline Phosphatase 101 NT-Pro-B Natriuret Pep Total Protein 7.1 Albumin 3.7 Globulin 3.3 Albumin/Globulin Ratio 1.1 Arterial Blood Potassium Urine Color Urine Clarity Urine pH Ur Specific [place] Urine Protein Urine Glucose (UA) Urine Ketones Urine Blood Urine Nitrate Urine Bilirubin Urine Urobilinogen Ur Leukocyte Esterase Urine WBC (Auto) Urine RBC (Auto) Ur Squamous Epith Cells Urine Bacteria Blood Type Antibody Screen 02/28/18 02/28/18 08:13 12:26 WBC RBC Hgb Hct MCV MCH MCHC RDW Plt Count MPV Neut % (Auto) Lymph % (Auto) [place] % (Auto) Eos % (Auto) Baso % (Auto) Neut # (Auto) Lymph # (Auto) [place] # (Auto) Eos # (Auto) Baso # (Auto) Differential Comment Retic Count PT INR APTT Puncture Site pCO2 pO2 HCO3 ABG pH ABG Total CO2 ABG O2 Saturation ABG Base Excess Lester Test ABG Potassium A-a O2 Difference Respiratory Index Glucose Lactate Liter Flow FiO2 Sodium Potassium Chloride Carbon Dioxide Anion Gap BUN Creatinine Est GFR ( Amer) Est GFR (Non-Af Amer) POC Glucose (mg/dL) 141 H Random Glucose Calcium Phosphorus Magnesium Iron 35 L TIBC 502 H % Saturation 7 L Ferritin Total Bilirubin AST ALT Alkaline Phosphatase NT-Pro-B Natriuret Pep Total Protein Albumin Globulin Albumin/Globulin Ratio Arterial Blood Potassium Urine Color Urine Clarity Urine pH Ur Specific [place] Urine Protein Urine Glucose (UA) Urine Ketones Urine Blood Urine Nitrate Urine Bilirubin Urine Urobilinogen Ur Leukocyte Esterase Urine WBC (Auto) Urine RBC (Auto) Ur Squamous Epith Cells Urine Bacteria Blood Type Antibody Screen Assessment & Plan (1) Anemia Assessment and Plan: work up consistent with iron deficiency anemia likely chronic occult GI blood loss PRBC transfusion will start IV iron GI work up f/u b12 and folate Thank you for this interesting consult. Status: Acute
[2018-02-28] MEDS ORDERED: POLYETHYLENE GLYCOL 3350 17 GM/Dose PACKET PO PRN (15:33)
[2018-03-01 06:30] LABS: MEAN CORPUSCULAR HEMOGLOBIN 21.4 pg (27.0-31.0); MEAN CORPUSCULAR HGB CONC 29.7 g/dL (33.0-37.0); MEAN PLATELET VOLUME 9.1 fL (7.2-11.7); RBC 4.67 Mil/uL (3.80-5.20); WHITE BLOOD COUNT 9.6 K/uL (4.8-10.8)
[2018-03-01 06:36] LABS: ALB/GLOB RATIO 1.1 (1.0-2.1); ALBUMIN 3.8 g/dL (3.5-5.0); ALT/SGPT 23 U/L (9-52); AST/SGOT 26 U/L (14-36); BLOOD UREA NITROGEN 14 mg/dL (7-17); CALCIUM 9.1 mg/dl (8.6-10.4); GFR NON-AFRICAN AMERICAN > 60
[2018-03-01 07:35] LABS: FOLATE 5.7 ng/mL
--- NOTE | 2018-03-01 08:01 | CP.PCM.PN ---
<[email or web address] - Last Filed: 03/01/18 13:08> Subjective - Date & Time of Evaluation Date of Evaluation: 03/01/18 Time of Evaluation: 07:55 - Subjective Subjective: Patient complains of chronic low back pain, but otherwise doing well. She had small BM lastnight after Miralax. Tolerating diet. No vomiting or signs of bleed ing. Objective - Vital Signs/Intake and Output Vital Signs (last 24 hours): Temp Pulse Resp BP Pulse Ox 98.1 F 71 25 H 148/64 94 L 03/01/18 04:00 03/01/18 06:36 03/01/18 06:36 03/01/18 06:36 03/01/18 06:36 Intake and Output: 03/01/18 03/01/18 06:59 18:59 Intake Total 360 0 Output Total 450 0 Balance -90 0 - Medications Medications: Current Medications Aspirin (Ecotrin) 81 mg PO DAILY [facility] Last Admin: 02/28/18 10:03 Dose: Not Given Clopidogrel Bisulfate (Plavix) 75 mg PO DAILY [facility] Last Admin: 02/28/18 10:03 Dose: Not Given Gabapentin (Neurontin) 600 mg PO DAILY [facility] Last Admin: 02/28/18 10:03 Dose: 600 mg Ferric Sodium Gluconate Complex 125 mg/ Sodium Chloride 110 mls @ 110 mls/hr IVPB Q24H [facility] Stop: 03/08/18 14:01 Last Admin: 02/28/18 14:00 Dose: 110 mls/hr Metoprolol Tartrate (Lopressor) 50 mg PO BID [facility] Last Admin: 02/28/18 18:27 Dose: 50 mg Ondansetron HCl (Zofran Inj) 4 mg IVP Q4H PRN PRN Reason: Nausea/Vomiting Last Admin: 02/28/18 22:03 Dose: 4 mg Pantoprazole Sodium (Protonix Inj) 40 mg IVP DAILY [facility] Last Admin: 02/28/18 10:02 Dose: 40 mg Polyethylene Glycol (Miralax) 17 gm PO BID PRN PRN Reason: Constipation Last Admin: 02/28/18 18:27 Dose: 17 gm Rosuvastatin Calcium (Crestor) 5 mg PO HS [facility] Last Admin: 02/28/18 22:05 Dose: 5 mg Sitagliptin Phosphate (Januvia) 50 mg PO DAILY [facility] Last Admin: 02/28/18 10:58 Dose: 50 mg - Labs Labs: 03/01/18 05:52 03/01/18 05:53 PT 12.5 SECONDS (9.7-12.2) H 02/27/18 14:19 INR 1.1 02/27/18 14:19 APTT 38 SECONDS (21-34) H 02/27/18 14:19 - Constitutional Appears: Non-toxic, No Acute Distress - Head Exam Head Exam: ATRAUMATIC, NORMAL INSPECTION - Eye Exam Eye Exam: EOMI, Normal appearance - ENT Exam ENT Exam: Mucous Membranes Moist, Normal Exam - Respiratory Exam Respiratory Exam: Clear to Ausculation Bilateral, Rales, NORMAL BREATHING PATTERN - Cardiovascular Exam Cardiovascular Exam: REGULAR RHYTHM, +S1, +S2 - GI/Abdominal Exam GI & Abdominal Exam: Soft, Normal Bowel Sounds. absent: Tenderness - Rectal Exam Rectal Exam: Hemorrhoids, NORMAL INSPECTION. absent: Black Stool, Bloody Stool - Extremities Exam Extremities Exam: Full ROM, Normal Inspection - Neurological Exam Neurological Exam: Alert, Awake, Oriented x3 - Psychiatric Exam Psychiatric exam: Normal Affect, Normal Mood - Skin Skin Exam: Dry, Normal Color Assessment and Plan - Assessment and Plan (Free Text) Assessment: #Symptomatic Chronic anemia, iron deficient #Acute Respiratory failure #CAD s/p stent (2013) - currently on aspirin and Plavix at home. #Hx of colon polyps - last #T2DM/HTN #Hx CVA PLAN - Labs and imaging reviewed - Rectal exam negative for any obvious lesion. - Iron studies are consistent with iron deficiency. s/p iron infusions. - Continue to monitor Hb. No active bleed at this time. Goal Hb above 8. - s/p 2u pRBCs. Appropriate response. Monitor for volume overload. - Continue diet - PPI daily - Continue Miralax - Endoscopic evaluation is not emergent at this time. Case has been discussed with primary physician and facilities plant engineer. The plan is to continue aspirin and HOLD plavix indefinitely. She will follow up as outpatient for EGD and colonoscopy. Contact information has been given to the patient. - We will sign-off at this time. Please reconsult as needed. <Jori Fuller - Last Filed: 03/01/18 15:57> Objective - Vital Signs/Intake and Output Vital Signs (last 24 hours): Temp Pulse Resp BP Pulse Ox 98 F 61 16 135/66 94 L 03/01/18 12:00 03/01/18 14:40 03/01/18 14:40 03/01/18 14:36 03/01/18 14:40 Intake and Output: 03/01/18 03/01/18 06:59 18:59 Intake Total 360 240 Output Total 450 200 Balance -90 40 - Medications Medications: Current Medications Aspirin (Ecotrin) 81 mg PO DAILY [facility] Last Admin: 02/28/18 10:03 Dose: Not Given Clopidogrel Bisulfate (Plavix) 75 mg PO DAILY [facility] Last Admin: 02/28/18 10:03 Dose: Not Given Gabapentin (Neurontin) 600 mg PO DAILY [facility] Last Admin: 03/01/18 10:28 Dose: 600 mg Ferric Sodium Gluconate Complex 125 mg/ Sodium Chloride 110 mls @ 110 mls/hr IVPB Q24H [facility] Stop: 03/08/18 14:01 Last Admin: 03/01/18 14:00 Dose: 110 mls/hr Metoprolol Tartrate (Lopressor) 50 mg PO BID [facility] Last Admin: 03/01/18 10:28 Dose: 50 mg Ondansetron HCl (Zofran Inj) 4 mg IVP Q4H PRN PRN Reason: Nausea/Vomiting Last Admin: 02/28/18 22:03 Dose: 4 mg Pantoprazole Sodium (Protonix Ec Tab) 40 mg PO DAILY [facility] Polyethylene Glycol (Miralax) 17 gm PO BID PRN PRN Reason: Constipation Last Admin: 02/28/18 18:27 Dose: 17 gm Rosuvastatin Calcium (Crestor) 5 mg PO HS [facility] Last Admin: 02/28/18 22:05 Dose: 5 mg Sitagliptin Phosphate (Januvia) 50 mg PO DAILY [facility] Last Admin: 03/01/18 10:28 Dose: 50 mg - Labs Labs: 03/01/18 05:52 03/01/18 05:53 PT 12.5 SECONDS (9.7-12.2) H 02/27/18 14:19 INR 1.1 02/27/18 14:19 APTT 38 SECONDS (21-34) H 02/27/18 14:19 Attending/Attestation - Attestation I have personally seen and examined this patient.: Yes I have fully participated in the care of the patient.: Yes I have reviewed all pertinent clinical information, including history, physical exam and plan: Yes Notes (Text): 03/01/18 15:53 I have seen and examined patient with GI fellow. No acute events overnight, she is seen resting in bed comfortably, daughter present at bedside. She denies abdominal pain, nausea, vomiting, fever/chills. Tolerating PO diet without difficulty. She had one bowel movement last night without presence of blood in stool. CAD s/p stent on plavix (held) Iron deficiency anemia CHF DM / HTN - Diet as tolerated - H/H stable, continue to monitor - Continue with PPI therapy - Follow up cardiology recommendations - No further planned GI intervention at this time, patient would benefit from elective outpatient endoscopic evaluation of progressive anemia following resolution of acute medical symptoms. Case discussed with Dr. Bennett, will continue to hold plavix for time being and will reinitiate aspirin therapy with ongoing observation. Will sign off case, please reconsult as necessary, thank you.
--- NOTE | 2018-03-01 08:11 | HP ---
HISTORY OF PRESENT ILLNESS: Sunshine came to my office yesterday, walking very slowly down the hallway with a walker and assistance, very short of breath. I immediately knew I had to send her to the emergency room and it is the worst I have ever seen. She is a 68-year-old -[place] female, I have known for years, who looked very lethargic, malaise and short of breath. I had her go straight to [facility] ambulance, so the daughter drove her there. Worsening shortness of breath, has been coughing that has been going on for about two weeks, subjective fever. PAST MEDICAL HISTORY: She has a past medical history of CHF, COPD and asthma. She had double strokes, three MIs, Chinchilla syndrome, syphilis, hypertension, [id number] diabetes mellitus, high cholesterol and gout. She is very short of breath, very uncomfortable, lethargic [id number] distress. PAST SURGICAL HISTORY: No pacemaker. Other surgeries, she had coronary arteriograms, insertion of vascular stent, insertion of drug-eluting coronary stent, left cardiac cath, left heart angiocardiogram, percutaneous transluminal coronary angioplasty of single vessel. FAMILY HISTORY: There is coronary artery disease and hypertension in the family. SOCIAL HISTORY: No alcohol. No drugs. I believe, there is a history of smoking. REVIEW OF SYSTEMS: She is short of breath. Subjective fever, very tired, lethargic. No chest pain. There is shortness of breath. No nausea or vomiting. She is weak all over. PHYSICAL EXAMINATION GENERAL: She is alert, oriented x3, lethargic in conversation. VITAL SIGNS: She has 98.4 temp, 77 pulse, 15 respiratory rate, 133/62 blood pressure, 100% O2 sat on oxygen. SKIN: Warm and dry. No apparent ulcers appreciated. HEENT: Head is atraumatic and normocephalic. Throat is dry. NECK: Supple. No JVD. Thyroid midline. No palpable appreciable lymphadenopathy. HEART: Regular rate although tachycardic. LUNGS: Decreased breath sounds. Poor inspiration. No wheezes, rhonchi or rales. ABDOMEN: Soft, nontender. Positive bowel sounds. No guarding. No rebound. No CVA tenderness. EXTREMITIES: Trace to +1 edema in bilateral ankles. NEURO: Alert and oriented x3. LABORATORY DATA: She had multiple tests done. Her urine was clean. She has 136 sodium, potassium 4.7, BUN 24, creatinine 0.9, GFR is greater than 60, sugar is 151, calcium 9.2, phosphorus 2.9, magnesium 1.6, total bili is 0.9, AST is 20, ALT is 20, alkaline phosphatase 82. BNP was 3040. Total protein 7.2, albumin 3.8. Lactate was 1.2. She has a 1.1 INR. She had a 9.1 white count, 6.1 hemoglobin, 21.5 hematocrit and 273 platelets. After 1 unit of packed red blood cells, she has a 7.3 hemoglobin and a 25 hematocrit. I two more units of packed red blood cells with Lasix 40 IV in between. She will be seen by Cardiology in terms of this, Pulmonology and GI. She is back on her medicines for diabetes. Hopefully, she will eat well. She will get two more units of packed red blood cells today. She is in the intensive care unit and hopefully she will improve. She needs physical therapy. She might need subacute rehab as she was before she got to the hospital with the transfusion. Continue aggressive treatment and care. Hemoglobin down to 6.1, anemia. History of CAD, CHF and hypertension. Valente Lozano DO MTDEsther
--- NOTE | 2018-03-01 08:12 | CP.CCUPN ---
CCU Subjective - Physician Review Subjective (Free Text): 02/28/18 12:29 Patient seen and examined at bedside this AM, s/p pRBC transfusion with appropriate response. Hb 10, patient clinically improved. Medically stable for transfer to telemetry. CCU Objective - Vital Signs / Intake & Output Vital Signs (Last 4 hours): Vital Signs Pulse Resp BP Pulse Ox 03/01/18 08:00 65 20 97 03/01/18 07:58 22 03/01/18 07:55 65 21 133/60 97 03/01/18 07:50 67 22 97 03/01/18 07:40 66 16 100 03/01/18 07:30 64 14 133/60 100 03/01/18 07:20 76 16 03/01/18 07:10 83 16 86 L 03/01/18 07:00 70 17 97 03/01/18 06:50 73 14 98 03/01/18 06:36 71 25 H 148/64 94 L 03/01/18 06:10 18 03/01/18 06:03 69 19 95 03/01/18 05:00 67 19 91 L Intake and Output (Last 8hrs): Intake & Output 02/28/18 03/01/18 03/01/18 22:59 06:59 14:59 Intake Total 1470 360 240 Output Total 1000 250 200 Balance 470 110 40 Weight 211 lb 4.8 oz Intake: Intake, IV Amount 100 LEFT AC 100 Oral 720 360 240 Blood Product 650 Red Blood Cells Cpd As1 325 Lr Unit [id number] Output: Urine 1000 250 200 Urine, Voided 1000 250 200 - Physical Exam Head: Positive for: Atraumatic, Normocephalic Pupils: Positive for: PERRL Extroacular Muscles: Positive for: EOMI Mouth: Positive for: Moist Mucous Membranes Neck: Positive for: Normal Range of Motion Respiratory/Chest: Positive for: Clear to Auscultation, Decreased Breath Sounds. Negative for: Accessory Muscle Use, Wheezes, Rales, Rhonchi Cardiovascular: Positive for: Regular Rate and Rhythm, Normal S1, S2 Abdomen: Positive for: Normal Bowel Sounds. Negative for: Tenderness, Distention, Peritoneal Signs, Rebound, Guarding Upper Extremity: Positive for: Normal Inspection Lower Extremity: Positive for: Normal Inspection, NORMAL PULSES, Neurovascularly Intact, Capillary Refill < 2 s. Negative for: Edema, CALF TENDERNESS Neurological: Positive for: CN II-XII Intact, Speech Normal Skin: Positive for: Warm, Dry, Rashes, Normal Color Psychiatric: Positive for: Alert, Oriented x 3 - Medications Active Medications: Active Medications Generic Name Dose Route Start Last Admin Trade Name Freq PRN Reason Stop Dose Admin Aspirin 81 mg 02/28/18 10:00 02/28/18 10:03 Ecotrin PO Not Given DAILY JESSICA Clopidogrel Bisulfate 75 mg 02/28/18 10:00 02/28/18 10:03 Plavix PO Not Given DAILY JESSICA Gabapentin 600 mg 02/28/18 10:00 02/28/18 10:03 Neurontin PO 600 mg DAILY JESSICA Administration Ferric Sodium Gluconate 110 mls @ 110 mls/hr 02/28/18 14:00 02/28/18 14:00 Complex 125 mg/ Sodium IVPB 03/08/18 14:01 110 mls/hr Chloride Q24H JESSICA Administration Metoprolol Tartrate 50 mg 02/27/18 18:00 02/28/18 18:27 Lopressor PO 50 mg BID JESSICA Administration Ondansetron HCl 4 mg 02/28/18 21:49 02/28/18 22:03 Zofran Inj IVP 4 mg Q4H PRN Administration Nausea/Vomiting Pantoprazole Sodium 40 mg 02/28/18 10:00 02/28/18 10:02 Protonix Inj IVP 40 mg DAILY JESSICA Administration Polyethylene Glycol 17 gm 02/28/18 15:33 02/28/18 18:27 Miralax PO 17 gm BID PRN Administration Constipation Rosuvastatin Calcium 5 mg 02/27/18 22:00 02/28/18 22:05 Crestor PO 5 mg HS JESSICA Administration Sitagliptin Phosphate 50 mg 02/28/18 10:00 02/28/18 10:58 Januvia PO 50 mg DAILY JESSICA Administration - Patient Studies Lab Studies: Microbiology Studies 02/27/18 20:53 MRSA Culture (Admit) - Final Naris MRSA NOT DETECTED 02/27/18 15:59 Blood Culture - Preliminary Blood NO GROWTH AFTER 24 HOURS 02/27/18 15:05 Blood Culture - Preliminary Blood NO GROWTH AFTER 24 HOURS Lab Studies 03/01/18 03/01/18 03/01/18 Range/Units 07:51 05:53 05:52 WBC 9.6 (4.8-10.8) K/uL RBC 4.67 (3.80-5.20) Mil/uL Hgb 10.0 L D (11.0-16.0) g/dL Hct 33.6 L (34.0-47.0) % MCV 72.0 L D (81.0-99.0) fL MCH 21.4 L (27.0-31.0) pg MCHC 29.7 L (33.0-37.0) g/dL RDW 25.0 H (11.5-14.5) % Plt Count 246 (130-400) K/uL MPV 9.1 (7.2-11.7) fL Neut % (Auto) (50.0-75.0) % Lymph % (Auto) (20.0-40.0) % Stokes % (Auto) (0.0-10.0) % Eos % (Auto) (0.0-4.0) % Baso % (Auto) (0.0-2.0) % Neut # (Auto) (1.8-7.0) K/uL Lymph # (Auto) (1.0-4.3) K/uL Stokes # (Auto) (0.0-0.8) K/uL Eos # (Auto) (0.0-0.7) K/uL Baso # (Auto) (0.0-0.2) K/uL Retic Count (0.5-1.5) % Sodium 136 (132-148) mmol/L Potassium 4.6 (3.6-5.2) mmol/L Chloride 89 L (98-107) mmol/L Carbon Dioxide 38 H (22-30) mmol/L Anion Gap 14 (10-20) BUN 14 (7-17) mg/dL Creatinine 0.6 L (0.7-1.2) mg/dL Est GFR ( Amer) > 60 Est GFR (Non-Af Amer) > 60 POC Glucose (mg/dL) 179 H (65-110) mg/dL Random Glucose 127 H (65-105) mg/dL Calcium 9.1 (8.6-10.4) mg/dl Phosphorus (2.5-4.5) mg/dL Magnesium (1.6-2.3) mg/dL Iron (37-170) ug/dL TIBC (250-450) ug/dL % Saturation (20-55) Ferritin ng/mL Total Bilirubin 1.3 (0.2-1.3) mg/dL AST 26 (14-36) U/L ALT 23 (9-52) U/L Alkaline Phosphatase 108 (38-126) U/L Total Protein 7.2 (6.3-8.3) g/dL Albumin 3.8 (3.5-5.0) g/dL Globulin 3.4 (2.2-3.9) gm/dL Albumin/Globulin Ratio 1.1 (1.0-2.1) Vitamin B12 652 (239-931) pg/mL Folate 5.7 ng/mL Stool Occult Blood (NEGATIVE) Blood Type Antibody Screen 02/28/18 02/28/18 02/28/18 Range/Units 21:17 17:42 16:13 WBC (4.8-10.8) K/uL RBC (3.80-5.20) Mil/uL Hgb (11.0-16.0) g/dL Hct (34.0-47.0) % MCV (81.0-99.0) fL MCH (27.0-31.0) pg MCHC (33.0-37.0) g/dL RDW (11.5-14.5) % Plt Count (130-400) K/uL MPV (7.2-11.7) fL Neut % (Auto) (50.0-75.0) % Lymph % (Auto) (20.0-40.0) % Stokes % (Auto) (0.0-10.0) % Eos % (Auto) (0.0-4.0) % Baso % (Auto) (0.0-2.0) % Neut # (Auto) (1.8-7.0) K/uL Lymph # (Auto) (1.0-4.3) K/uL Stokes # (Auto) (0.0-0.8) K/uL Eos # (Auto) (0.0-0.7) K/uL Baso # (Auto) (0.0-0.2) K/uL Retic Count (0.5-1.5) % Sodium (132-148) mmol/L Potassium (3.6-5.2) mmol/L Chloride (98-107) mmol/L Carbon Dioxide (22-30) mmol/L Anion Gap (10-20) BUN (7-17) mg/dL Creatinine (0.7-1.2) mg/dL Est GFR ( Amer) Est GFR (Non-Af Amer) POC Glucose (mg/dL) 107 125 H (65-110) mg/dL Random Glucose (65-105) mg/dL Calcium (8.6-10.4) mg/dl Phosphorus (2.5-4.5) mg/dL Magnesium (1.6-2.3) mg/dL Iron (37-170) ug/dL TIBC (250-450) ug/dL % Saturation (20-55) Ferritin ng/mL Total Bilirubin (0.2-1.3) mg/dL AST (14-36) U/L ALT (9-52) U/L Alkaline Phosphatase (38-126) U/L Total Protein (6.3-8.3) g/dL Albumin (3.5-5.0) g/dL Globulin (2.2-3.9) gm/dL Albumin/Globulin Ratio (1.0-2.1) Vitamin B12 (239-931) pg/mL Folate ng/mL Stool Occult Blood Negative (NEGATIVE) Blood Type Antibody Screen 02/28/18 02/28/18 02/28/18 Range/Units 12:26 08:13 07:26 WBC (4.8-10.8) K/uL RBC (3.80-5.20) Mil/uL Hgb (11.0-16.0) g/dL Hct (34.0-47.0) % MCV (81.0-99.0) fL MCH (27.0-31.0) pg MCHC (33.0-37.0) g/dL RDW (11.5-14.5) % Plt Count (130-400) K/uL MPV (7.2-11.7) fL Neut % (Auto) (50.0-75.0) % Lymph % (Auto) (20.0-40.0) % Stokes % (Auto) (0.0-10.0) % Eos % (Auto) (0.0-4.0) % Baso % (Auto) (0.0-2.0) % Neut # (Auto) (1.8-7.0) K/uL Lymph # (Auto) (1.0-4.3) K/uL Stokes # (Auto) (0.0-0.8) K/uL Eos # (Auto) (0.0-0.7) K/uL Baso # (Auto) (0.0-0.2) K/uL Retic Count (0.5-1.5) % Sodium (132-148) mmol/L Potassium (3.6-5.2) mmol/L Chloride (98-107) mmol/L Carbon Dioxide (22-30) mmol/L Anion Gap (10-20) BUN (7-17) mg/dL Creatinine (0.7-1.2) mg/dL Est GFR ( Amer) Est GFR (Non-Af Amer) POC Glucose (mg/dL) 141 H 129 H (65-110) mg/dL Random Glucose (65-105) mg/dL Calcium (8.6-10.4) mg/dl Phosphorus (2.5-4.5) mg/dL Magnesium (1.6-2.3) mg/dL Iron 35 L (37-170) ug/dL TIBC 502 H (250-450) ug/dL % Saturation 7 L (20-55) Ferritin ng/mL Total Bilirubin (0.2-1.3) mg/dL AST (14-36) U/L ALT (9-52) U/L Alkaline Phosphatase (38-126) U/L Total Protein (6.3-8.3) g/dL Albumin (3.5-5.0) g/dL Globulin (2.2-3.9) gm/dL Albumin/Globulin Ratio (1.0-2.1) Vitamin B12 (239-931) pg/mL Folate ng/mL Stool Occult Blood (NEGATIVE) Blood Type Antibody Screen 02/28/18 02/28/18 02/27/18 Range/Units 06:34 06:30 15:25 WBC 8.4 (4.8-10.8) K/uL RBC 3.63 L (3.80-5.20) Mil/uL Hgb 7.3 L (11.0-16.0) g/dL Hct 24.5 L (34.0-47.0) % MCV 67.6 L (81.0-99.0) fL MCH 20.1 L (27.0-31.0) pg MCHC 29.7 L (33.0-37.0) g/dL RDW 23.2 H (11.5-14.5) % Plt Count 242 (130-400) K/uL MPV 9.2 (7.2-11.7) fL Neut % (Auto) 78.1 H (50.0-75.0) % Lymph % (Auto) 14.0 L (20.0-40.0) % Stokes % (Auto) 6.7 (0.0-10.0) % Eos % (Auto) 0.6 (0.0-4.0) % Baso % (Auto) 0.6 (0.0-2.0) % Neut # (Auto) 6.5 (1.8-7.0) K/uL Lymph # (Auto) 1.2 (1.0-4.3) K/uL Stokes # (Auto) 0.6 (0.0-0.8) K/uL Eos # (Auto) 0.1 (0.0-0.7) K/uL Baso # (Auto) 0.1 (0.0-0.2) K/uL Retic Count 2.8 H (0.5-1.5) % Sodium 137 (132-148) mmol/L Potassium 4.5 (3.6-5.2) mmol/L Chloride 97 L (98-107) mmol/L Carbon Dioxide 34 H (22-30) mmol/L Anion Gap 11 (10-20) BUN 20 H (7-17) mg/dL Creatinine 0.7 (0.7-1.2) mg/dL Est GFR ( Amer) > 60 Est GFR (Non-Af Amer) > 60 POC Glucose (mg/dL) (65-110) mg/dL Random Glucose 120 H (65-105) mg/dL Calcium 8.9 (8.6-10.4) mg/dl Phosphorus 3.6 (2.5-4.5) mg/dL Magnesium 1.6 (1.6-2.3) mg/dL Iron (37-170) ug/dL TIBC (250-450) ug/dL % Saturation (20-55) Ferritin 7.1 ng/mL Total Bilirubin 1.2 (0.2-1.3) mg/dL AST 28 (14-36) U/L ALT 21 (9-52) U/L Alkaline Phosphatase 101 (38-126) U/L Total Protein 7.1 (6.3-8.3) g/dL Albumin 3.7 (3.5-5.0) g/dL Globulin 3.3 (2.2-3.9) gm/dL Albumin/Globulin Ratio 1.1 (1.0-2.1) Vitamin B12 (239-931) pg/mL Folate ng/mL Stool Occult Blood (NEGATIVE) Blood Type A POSITIVE Antibody Screen Negative Laboratory Results - last 24 hr 02/27/18 02/28/18 02/28/18 15:25 06:30 06:34 WBC 8.4 RBC 3.63 L Hgb 7.3 L Hct 24.5 L MCV 67.6 L MCH 20.1 L MCHC 29.7 L RDW 23.2 H Plt Count 242 MPV 9.2 Neut % (Auto) 78.1 H Lymph % (Auto) 14.0 L Stokes % (Auto) 6.7 Eos % (Auto) 0.6 Baso % (Auto) 0.6 Neut # (Auto) 6.5 Lymph # (Auto) 1.2 Stokes # (Auto) 0.6 Eos # (Auto) 0.1 Baso # (Auto) 0.1 Retic Count 2.8 H Sodium 137 Potassium 4.5 Chloride 97 L Carbon Dioxide 34 H Anion Gap 11 BUN 20 H Creatinine 0.7 Est GFR ( Amer) > 60 Est GFR (Non-Af Amer) > 60 POC Glucose (mg/dL) Random Glucose 120 H Calcium 8.9 Phosphorus 3.6 Magnesium 1.6 Iron TIBC % Saturation Ferritin 7.1 Total Bilirubin 1.2 AST 28 ALT 21 Alkaline Phosphatase 101 Total Protein 7.1 Albumin 3.7 Globulin 3.3 Albumin/Globulin Ratio 1.1 Vitamin B12 Folate Stool Occult Blood Blood Type A POSITIVE Antibody Screen Negative 02/28/18 02/28/18 02/28/18 07:26 08:13 12:26 WBC RBC Hgb Hct MCV MCH MCHC RDW Plt Count MPV Neut % (Auto) Lymph % (Auto) Stokes % (Auto) Eos % (Auto) Baso % (Auto) Neut # (Auto) Lymph # (Auto) Stokes # (Auto) Eos # (Auto) Baso # (Auto) Retic Count Sodium Potassium Chloride Carbon Dioxide Anion Gap BUN Creatinine Est GFR ( Amer) Est GFR (Non-Af Amer) POC Glucose (mg/dL) 129 H 141 H Random Glucose Calcium Phosphorus Magnesium Iron 35 L TIBC 502 H % Saturation 7 L Ferritin Total Bilirubin AST ALT Alkaline Phosphatase Total Protein Albumin Globulin Albumin/Globulin Ratio Vitamin B12 Folate Stool Occult Blood Blood Type Antibody Screen 02/28/18 02/28/18 02/28/18 16:13 17:42 21:17 WBC RBC Hgb Hct MCV MCH MCHC RDW Plt Count MPV Neut % (Auto) Lymph % (Auto) Stokes % (Auto) Eos % (Auto) Baso % (Auto) Neut # (Auto) Lymph # (Auto) Stokes # (Auto) Eos # (Auto) Baso # (Auto) Retic Count Sodium Potassium Chloride Carbon Dioxide Anion Gap BUN Creatinine Est GFR ( Amer) Est GFR (Non-Af Amer) POC Glucose (mg/dL) 125 H 107 Random Glucose Calcium Phosphorus Magnesium Iron TIBC % Saturation Ferritin Total Bilirubin AST ALT Alkaline Phosphatase Total Protein Albumin Globulin Albumin/Globulin Ratio Vitamin B12 Folate Stool Occult Blood Negative Blood Type Antibody Screen 03/01/18 03/01/18 03/01/18 05:52 05:53 07:51 WBC 9.6 RBC 4.67 Hgb 10.0 L D Hct 33.6 L MCV 72.0 L D MCH 21.4 L MCHC 29.7 L RDW 25.0 H Plt Count 246 MPV 9.1 Neut % (Auto) Lymph % (Auto) Stokes % (Auto) Eos % (Auto) Baso % (Auto) Neut # (Auto) Lymph # (Auto) Stokes # (Auto) Eos # (Auto) Baso # (Auto) Retic Count Sodium 136 Potassium 4.6 Chloride 89 L Carbon Dioxide 38 H Anion Gap 14 BUN 14 Creatinine 0.6 L Est GFR ( Amer) > 60 Est GFR (Non-Af Amer) > 60 POC Glucose (mg/dL) 179 H Random Glucose 127 H Calcium 9.1 Phosphorus Magnesium Iron TIBC % Saturation Ferritin Total Bilirubin 1.3 AST 26 ALT 23 Alkaline Phosphatase 108 Total Protein 7.2 Albumin 3.8 Globulin 3.4 Albumin/Globulin Ratio 1.1 Vitamin B12 652 Folate 5.7 Stool Occult Blood Blood Type Antibody Screen Fingerstick Blood Sugar Results: 179 Critical Care Progress Note - Nutrition Nutrition: Nutrition Category Date Time Status Heart Healthy Diet [DIET] Diets 02/27/18 Dinner Active
--- NOTE | 2018-03-01 12:19 | PN ---
DATE: 03/01/2018 SUBJECTIVE: I saw her in the intensive care unit at [facility]. She is a little bit better, but not 100% yet. She is still in a little bit trouble. She is here for anemia, CAD, CHF, hypertension. She is on Crestor, iron, Januvia, Lopressor, Miralax, Neurontin, Plavix, Protonix IV and Zofran. PHYSICAL EXAMINATION: VITAL SIGNS: She has a 98.1 temp, 69 pulse, 18 respiratory rate, 148/64 blood pressure, 97% O2 sat. HEENT: Head is atraumatic, normocephalic. HEART: Regular rate. LUNGS: Decreased breath sounds, but clear. ABDOMEN: Soft, obese, nontender. EXTREMITIES: Weak, difficult to move before she goes home. LABORATORY DATA: She has a 9.6 white count, hemoglobin is up to 10 after two more units of packed red blood cells, 32.6 hematocrit with 246 platelets. She has a 136 sodium, potassium 4.6, BUN 14, creatinine 0.6, GFR is greater than 60, sugar is 127, calcium is 9.1. Iron was low at 35, we gave her some iron. Total bili is 1.3, AST is 26, ALT is 23, alk phos 108, total protein 7.2, albumin is 3.8. Negative stool occult blood. ASSESSMENT AND PLAN: She is being seen by the hand carver, Gastroenterology and Cardiology. Iron deficiency anemia, likely chronic acute blood loss. We need to get Physical Therapy involved now to see what she can do as far as her ability to walk. She is hopefully eating. We will get her out of bed to chair. We will see how she continues to improve Valente Lozano DO MTDD
[2018-03-01] MEDS: Ferric Sodium Gluconat Complex 125 MG in Sodium Chloride 0.9% 100 ML IVPB SCH (14:00)
--- NOTE | 2018-03-01 15:34 | CP.PCM.PN ---
Subjective - Date & Time of Evaluation Date of Evaluation: 03/01/18 Time of Evaluation: 07:45 - Subjective Subjective: Patient has no current chest pain. Objective - Vital Signs/Intake and Output Vital Signs (last 24 hours): Temp Pulse Resp BP Pulse Ox 98 F 61 16 135/66 94 L 03/01/18 12:00 03/01/18 14:40 03/01/18 14:40 03/01/18 14:36 03/01/18 14:40 Intake and Output: 03/01/18 03/01/18 06:59 18:59 Intake Total 360 240 Output Total 450 200 Balance -90 40 - Medications Medications: Current Medications Aspirin (Ecotrin) 81 mg PO DAILY [facility] Last Admin: 02/28/18 10:03 Dose: Not Given Clopidogrel Bisulfate (Plavix) 75 mg PO DAILY [facility] Last Admin: 02/28/18 10:03 Dose: Not Given Gabapentin (Neurontin) 600 mg PO DAILY [facility] Last Admin: 03/01/18 10:28 Dose: 600 mg Ferric Sodium Gluconate Complex 125 mg/ Sodium Chloride 110 mls @ 110 mls/hr IVPB Q24H [facility] Stop: 03/08/18 14:01 Last Admin: 03/01/18 14:00 Dose: 110 mls/hr Metoprolol Tartrate (Lopressor) 50 mg PO BID [facility] Last Admin: 03/01/18 10:28 Dose: 50 mg Ondansetron HCl (Zofran Inj) 4 mg IVP Q4H PRN PRN Reason: Nausea/Vomiting Last Admin: 02/28/18 22:03 Dose: 4 mg Pantoprazole Sodium (Protonix Ec Tab) 40 mg PO DAILY [facility] Polyethylene Glycol (Miralax) 17 gm PO BID PRN PRN Reason: Constipation Last Admin: 02/28/18 18:27 Dose: 17 gm Rosuvastatin Calcium (Crestor) 5 mg PO HS [facility] Last Admin: 02/28/18 22:05 Dose: 5 mg Sitagliptin Phosphate (Januvia) 50 mg PO DAILY [facility] Last Admin: 03/01/18 10:28 Dose: 50 mg - Labs Labs: 03/01/18 05:52 03/01/18 05:53 PT 12.5 SECONDS (9.7-12.2) H 02/27/18 14:19 INR 1.1 11/19/18 14:19 APTT 38 SECONDS (21-34) H 02/27/18 14:19 - Constitutional Appears: Non-toxic - Head Exam Head Exam: NORMAL INSPECTION - Eye Exam Eye Exam: Normal appearance - ENT Exam ENT Exam: Mucous Membranes Moist - Neck Exam Neck Exam: Full ROM - Respiratory Exam Respiratory Exam: NORMAL BREATHING PATTERN - Cardiovascular Exam Cardiovascular Exam: REGULAR RHYTHM - GI/Abdominal Exam GI & Abdominal Exam: Normal Bowel Sounds - Rectal Exam Rectal Exam: Deferred - Extremities Exam Extremities Exam: absent: Pedal Edema - Back Exam Back Exam: NORMAL INSPECTION - Neurological Exam Neurological Exam: Alert - Psychiatric Exam Psychiatric exam: Normal Affect - Skin Skin Exam: Normal Color Assessment and Plan (1) Symptomatic anemia Assessment & Plan: follow Hgb Status: Acute (2) CAD (coronary artery disease) Assessment & Plan: remote history. can hold antiplatelet therapydue to anemia. stable for endoscopy/colonoscopy Status: Acute (3) CHF (congestive heart failure) Assessment & Plan: likely diastolic dysfunction. echocardiogram reveals normal left ventricular function. medical therapy and blood pressure control Status: Acute (4) Hypertension Status: Chronic
--- NOTE | 2018-03-01 22:35 | CARD ---
APPROVED REPORT Date of service: 02/28/2018 EXAM: Two-dimensional and M-mode echocardiogram with Doppler and color Doppler. Other Information Quality : TDSRhythm : INDICATION Congestive Heart Failure 2D DIMENSIONS IVSd1.0 (0.7-1.1cm)LVDd4.2 (3.9-5.9cm) PWd1.1 (0.7-1.1cm)LA [id number] (18-58mL) LVDs2.8 (2.5-4.0cm)FS (%) 34.6 % LVEF (%)64.1 (>50%)LVEF (Carter's)68.43 % M-Mode DIMENSIONS Left Atrium (MM)4.57 (2.5-4.0cm)IVSd1.00 (0.7-1.1cm) Aortic Root3.01 (2.2-3.7cm)LVDd4.15 (4.0-5.6cm) Aortic Cusp Exc.1.88 (1.5-2.0cm)PWd1.23 (0.7-1.1cm) FS (%) 37 %LVDs2.61 (2.0-3.8cm) LVEF (%)67 (>50%) Mitral Valve MV E Jltoteyt04.2cm/sMV A Bhxxjkad623.7cm/sE/A ratio0.7 TDI Lateral E' Peak V7.32cm/sMedial E' Peak V5.00cm/sE/Lateral E'13.4 E/Medial E'19.6 Tricuspid Valve TR Peak [id number]/sTR Peak [id number] LEFT VENTRICLE The left ventricle is normal size. There is normal left ventricular wall thickness. Left ventricle systolic function is normal. The Ejection Fraction is 60-65%. There is normal LV segmental wall motion. There is a flattened septum consistent with right ventricle pressure overload. Tissue Doppler imaging reveals abnormal left ventricular diastolic dysfunction. RIGHT VENTRICLE The right ventricle is mildly dilated. There is normal right ventricular wall thickness. The right ventricular systolic function is normal. ATRIA The left atrium is mildly dilated. The right atrium size is normal. The interatrial septum is intact with no evidence for an atrial septal defect. AORTIC VALVE The aortic valve is normal in structure. No aortic regurgitation is present. There is no aortic valvular stenosis. There is no aortic valvular vegetation. MITRAL VALVE The mitral valve is normal in structure. There is no evidence of mitral valve prolapse. There is no mitral valve stenosis. There is no mitral valve regurgitation noted. TRICUSPID VALVE The tricuspid valve is normal in structure. There is moderate tricuspid regurgitation. Right ventricular systolic pressure is estimated at 50-60 mmHg. There is moderate pulmonary hypertension. PULMONIC VALVE The pulmonic valve is not well visualized. There is mild pulmonic valvular regurgitation. GREAT VESSELS The aortic root is normal in size. PERICARDIAL EFFUSION There is no significant pericardial effusion. <Conclusion> Left ventricle systolic function is normal. The Ejection Fraction is 60-65%. Diastolic dysfunction. No aortic regurgitation is present. There is no mitral valve regurgitation noted. There is moderate tricuspid regurgitation. There is moderate pulmonary hypertension. There is mild pulmonic valvular regurgitation.
[2018-03-02 06:20] LABS: HEMOGLOBIN 9.9 g/dL (11.0-16.0); MEAN CORPUSCULAR HEMOGLOBIN 22.3 pg (27.0-31.0); MEAN PLATELET VOLUME 9.3 fL (7.2-11.7); RBC 4.43 Mil/uL (3.80-5.20); RED CELL DISTRIBUTION WIDTH 25.7 % (11.5-14.5)
[2018-03-02 06:36] LABS: ALB/GLOB RATIO 1.1 (1.0-2.1); ALBUMIN 3.7 g/dL (3.5-5.0); ALT/SGPT 21 U/L (9-52); AST/SGOT 23 U/L (14-36); BLOOD UREA NITROGEN 11 mg/dL (7-17); CALCIUM 9.6 mg/dl (8.6-10.4); GFR NON-AFRICAN AMERICAN > 60
[2018-03-02] MEDS: Pantoprazole 40 mg EC Tab PO SCH (09:16)
--- NOTE | 2018-03-02 13:09 | PN ---
DATE: 03/02/2018 SUBJECTIVE: She is in the intensive care unit. She is easily arousable, very lethargic and tired. She is on high flow oxygen right now. Fairly comfortable. She is very weak, lethargic. PHYSICAL EXAMINATION: VITAL SIGNS: She has 98.6 temperature, 65 pulse, 145/70 blood pressure, 22 respiratory rate, 95% on high flow oxygen. HEENT: Atraumatic and normocephalic. HEART: Regular rate. LUNGS: Decreased breath sounds, but clear. ABDOMEN: Soft, obese, nontender. EXTREMITIES: No edema. She is currently on Crestor, Ecotrin, iron IV, Januvia, Lopressor, MiraLax, Neurontin, Plavix, Protonix, and Zofran. She has a 11 white count, 9.9 hemoglobin, it was as low as 6.1; 31.9 hematocrit with 265 platelets. She was transfused three units of packed red blood cells. She has 136 sodium, potassium 4.6, BUN 11, creatinine 0.6, GFR is greater than 62, sugar is 122, calcium 9.6, total bili is 1. AST is 23, ALT 21, alkaline phosphatase 111, total protein 7.1. Urine was clean. Negative stool for occult blood. Micro was negative. ASSESSMENT AND PLAN: She is being seen by Cardiology, GI, client relations specialist. She had a symptomatic anemia, possibly iron deficiency anemia, coronary artery disease. She is stable for endoscopy or colonoscopy if needed, chronic hypertension, congestive heart failure. She is in the intensive care unit hoping to increase her activity. I ordered physical therapy, to see her get out of the chair, checking her labs tomorrow. Hopefully she will continue to improve. Valente Lozano DO
[2018-03-02] MEDS: Ferric Sodium Gluconat Complex 125 MG in Sodium Chloride 0.9% 100 ML IVPB SCH (13:49)
--- NOTE | 2018-03-02 15:34 | RAD ---
Date of service: 03/02/2018 PROCEDURE: CHEST RADIOGRAPH, 1 VIEW HISTORY: SOB COMPARISON: Comparison is made with 02/27/2018 FINDINGS: LUNGS: Moderate pulmonary vascular congestion is again noted. There is a possible right lower lobe atelectasis. PLEURA: Suspicious for bilateral pleural effusions. CARDIOVASCULAR: Cardiomegaly is again noted. The left cardiac border is not well visualized in this study. OSSEOUS STRUCTURES: No significant abnormalities. VISUALIZED UPPER ABDOMEN: Normal. OTHER FINDINGS: There is stimulator wires overlying the lower and mid thoracic spine. IMPRESSION: Cardiomegaly and pulmonary congestion. Suspicious for right lower lobe partial atelectasis.
[2018-03-03 06:40] LABS: HEMOGLOBIN 10.1 g/dL (11.0-16.0); MEAN CELL VOLUME 73.9 fL (81.0-99.0); MEAN CORPUSCULAR HEMOGLOBIN 22.4 pg (27.0-31.0); MEAN CORPUSCULAR HGB CONC 30.3 g/dL (33.0-37.0); MEAN PLATELET VOLUME 8.8 fL (7.2-11.7); RBC 4.53 Mil/uL (3.80-5.20); RED CELL DISTRIBUTION WIDTH 25.6 % (11.5-14.5); WHITE BLOOD COUNT 9.4 K/uL (4.8-10.8)
[2018-03-03 07:10] LABS: ALB/GLOB RATIO 1.2 (1.0-2.1); ALBUMIN 3.7 g/dL (3.5-5.0); ALT/SGPT 23 U/L (9-52); AST/SGOT 20 U/L (14-36); BLOOD UREA NITROGEN 9 mg/dL (7-17); CALCIUM 9.6 mg/dl (8.6-10.4); GFR NON-AFRICAN AMERICAN > 60
--- NOTE | 2018-03-03 07:21 | CP.CCUPN ---
<Rudi Mercado - Last Filed: 03/03/18 14:04> CCU Subjective - Physician Review Subjective (Free Text): 03/03/18 07:20 PGY-1 Critical Care Progress Note for Dr. Mcduffie Patient seen and examined at bedside this AM. No acute overnight events reported. Off of highflow, saturating well on 2L NC. Patient denies any chest pain, clinically improved. Medically stable for downgrade to telemetry. Critical Care Time Spent (in minutes): 35 CCU Objective - Vital Signs / Intake & Output Vital Signs (Last 4 hours): Vital Signs Temp Pulse Resp BP Pulse Ox 03/03/18 05:14 20 03/03/18 04:00 98.5 F 03/03/18 03:51 68 18 157/68 H 98 Intake and Output (Last 8hrs): Intake & Output 03/02/18 03/03/18 03/03/18 22:59 06:59 14:59 Intake Total 460 120 Output Total 1000 200 Balance -540 -80 Intake: Oral 460 120 Output: Urine 1000 200 Urine, Voided 1000 200 Other: # Voids Urine, Voided 1 0 # Bowel Movements 0 0 - Physical Exam Head: Positive for: Atraumatic, Normocephalic Pupils: Positive for: PERRL Extroacular Muscles: Positive for: EOMI Mouth: Positive for: Moist Mucous Membranes Neck: Positive for: Normal Range of Motion Respiratory/Chest: Positive for: Clear to Auscultation, Decreased Breath Sounds. Negative for: Accessory Muscle Use, Wheezes, Rales, Rhonchi Cardiovascular: Positive for: Regular Rate and Rhythm, Normal S1, S2 Abdomen: Positive for: Normal Bowel Sounds. Negative for: Tenderness, Distention, Peritoneal Signs, Rebound, Guarding Upper Extremity: Positive for: Normal Inspection Lower Extremity: Positive for: Normal Inspection, NORMAL PULSES, Neurovascularly Intact, Capillary Refill < 2 s. Negative for: Edema, CALF TENDERNESS Neurological: Positive for: CN II-XII Intact, Speech Normal Skin: Positive for: Warm, Dry, Rashes, Normal Color Psychiatric: Positive for: Alert, Oriented x 3 - Medications Active Medications: Active Medications Generic Name Dose Route Start Last Admin Trade Name Freq PRN Reason Stop Dose Admin Aspirin 81 mg 02/28/18 10:00 02/28/18 10:03 Ecotrin PO Not Given DAILY JESSICA Clopidogrel Bisulfate 75 mg 02/28/18 10:00 02/28/18 10:03 Plavix PO Not Given DAILY JESSICA Gabapentin 600 mg 02/28/18 10:00 03/02/18 09:16 Neurontin PO 600 mg DAILY JESSICA Administration Ferric Sodium Gluconate 110 mls @ 110 mls/hr 02/28/18 14:00 03/02/18 13:49 Complex 125 mg/ Sodium IVPB 03/08/18 14:01 110 mls/hr Chloride Q24H JESSICA Administration Metoprolol Tartrate 50 mg 02/27/18 18:00 03/02/18 17:06 Lopressor PO 50 mg BID JESSICA Administration Ondansetron HCl 4 mg 02/28/18 21:49 02/28/18 22:03 Zofran Inj IVP 4 mg Q4H PRN Administration Nausea/Vomiting Pantoprazole Sodium 40 mg 03/02/18 10:00 03/02/18 09:16 Protonix Ec Tab PO 40 mg DAILY JESSICA Administration Polyethylene Glycol 17 gm 02/28/18 15:33 02/28/18 18:27 Miralax PO 17 gm BID PRN Administration Constipation Rosuvastatin Calcium 5 mg 02/27/18 22:00 03/02/18 22:33 Crestor PO 5 mg HS JESSICA Administration Sitagliptin Phosphate 50 mg 02/28/18 10:00 03/02/18 09:18 Januvia PO 50 mg DAILY JESSICA Administration - Patient Studies Lab Studies: Microbiology Studies 02/27/18 15:59 Blood Culture - Preliminary Blood NO GROWTH AFTER 3 DAYS 02/27/18 15:05 Blood Culture - Preliminary Blood NO GROWTH AFTER 3 DAYS Lab Studies 03/03/18 03/03/18 03/02/18 Range/Units 06:33 06:33 21:26 WBC 9.4 (4.8-10.8) K/uL RBC 4.53 (3.80-5.20) Mil/uL Hgb 10.1 L (11.0-16.0) g/dL Hct 33.4 L (34.0-47.0) % MCV 73.9 L (81.0-99.0) fL MCH 22.4 L (27.0-31.0) pg MCHC 30.3 L (33.0-37.0) g/dL RDW 25.6 H (11.5-14.5) % Plt Count 250 (130-400) K/uL MPV 8.8 (7.2-11.7) fL Sodium 136 (132-148) mmol/L Potassium 4.2 (3.6-5.2) mmol/L Chloride 89 L (98-107) mmol/L Carbon Dioxide 39 H (22-30) mmol/L Anion Gap 12 (10-20) BUN 9 (7-17) mg/dL Creatinine 0.6 L (0.7-1.2) mg/dL Est GFR ( Amer) > 60 Est GFR (Non-Af Amer) > 60 POC Glucose (mg/dL) 134 H (65-110) mg/dL Random Glucose 108 H (65-105) mg/dL Calcium 9.6 (8.6-10.4) mg/dl Total Bilirubin 0.9 (0.2-1.3) mg/dL AST 20 (14-36) U/L ALT 23 (9-52) U/L Alkaline Phosphatase 100 (38-126) U/L Total Protein 6.9 (6.3-8.3) g/dL Albumin 3.7 (3.5-5.0) g/dL Globulin 3.2 (2.2-3.9) gm/dL Albumin/Globulin Ratio 1.2 (1.0-2.1) 03/02/18 03/02/18 03/02/18 Range/Units 16:32 11:14 07:24 WBC (4.8-10.8) K/uL RBC (3.80-5.20) Mil/uL Hgb (11.0-16.0) g/dL Hct (34.0-47.0) % MCV (81.0-99.0) fL MCH (27.0-31.0) pg MCHC (33.0-37.0) g/dL RDW (11.5-14.5) % Plt Count (130-400) K/uL MPV (7.2-11.7) fL Sodium (132-148) mmol/L Potassium (3.6-5.2) mmol/L Chloride (98-107) mmol/L Carbon Dioxide (22-30) mmol/L Anion Gap (10-20) BUN (7-17) mg/dL Creatinine (0.7-1.2) mg/dL Est GFR ( Amer) Est GFR (Non-Af Amer) POC Glucose (mg/dL) 128 H 183 H 129 H (65-110) mg/dL Random Glucose (65-105) mg/dL Calcium (8.6-10.4) mg/dl Total Bilirubin (0.2-1.3) mg/dL AST (14-36) U/L ALT (9-52) U/L Alkaline Phosphatase (38-126) U/L Total Protein (6.3-8.3) g/dL Albumin (3.5-5.0) g/dL Globulin (2.2-3.9) gm/dL Albumin/Globulin Ratio (1.0-2.1) Laboratory Results - last 24 hr 03/02/18 03/02/18 03/02/18 07:24 11:14 16:32 WBC RBC Hgb Hct MCV MCH MCHC RDW Plt Count MPV Sodium Potassium Chloride Carbon Dioxide Anion Gap BUN Creatinine Est GFR ( Amer) Est GFR (Non-Af Amer) POC Glucose (mg/dL) 129 H 183 H 128 H Random Glucose Calcium Total Bilirubin AST ALT Alkaline Phosphatase Total Protein Albumin Globulin Albumin/Globulin Ratio 03/02/18 03/03/18 03/03/18 21:26 06:33 06:33 WBC 9.4 RBC 4.53 Hgb 10.1 L Hct 33.4 L MCV 73.9 L MCH 22.4 L MCHC 30.3 L RDW 25.6 H Plt Count 250 MPV 8.8 Sodium 136 Potassium 4.2 Chloride 89 L Carbon Dioxide 39 H Anion Gap 12 BUN 9 Creatinine 0.6 L Est GFR ( Amer) > 60 Est GFR (Non-Af Amer) > 60 POC Glucose (mg/dL) 134 H Random Glucose 108 H Calcium 9.6 Total Bilirubin 0.9 AST 20 ALT 23 Alkaline Phosphatase 100 Total Protein 6.9 Albumin 3.7 Globulin 3.2 Albumin/Globulin Ratio 1.2 Fingerstick Blood Sugar Results: 134 Review of Systems - Review of Systems All systems: reviewed and no additional remarkable complaints except Review of Systems: as per HPI Critical Care Progress Note - Nutrition Nutrition: Nutrition Category Date Time Status Heart Healthy Diet [DIET] Diets 02/27/18 Dinner Active Assessment/Plan - Assessment and Plan (Free Text) Assessment: 68 yo F with PMHx including multiple CVA, multiple PA, NIIDM, HTN, HLD admitted to ICU for acute onset CF exacerbation 2/2 anemia. Pt s/p 2 units pRBC transfusion. Plan: Neuro: -patient alert and oriented x3 -no focal neurological deficits noted -c/w home neurontin Pulm: -off vapotherm, saturating well on 2L NC -CXR (02/27): Mild central pulmonary venous congestive changes exacerbated in appearance by a poor inspiration. Suspect mild bibasilar atelectasis. CV: -BP controlled -c/w ASA, plavix, statin -c/w lopressor 50 BID -ECHO (02/28): LV systolic function normal, EF 60-65%. Moderate tricuspid regurgitation, moderate pulmonary hypertension, mild pulmonic valvular regurgitation. -Cardiology consult (Dr. Bennett) on board Heme: -pt s/p 2 units pRBC transfusion, Hb 7.3 -PT/INR: 12.5/1.1 -PTT: 38 -no prior hx anemia, no hx GI bleed -iron 35, TIBC 502, % sat 7 -Heme recs (Dr. Gonzalez) appreciated: workup suggestive of iron deficient anemia, likely 2/2 chronic occult GI blood loss. Will start IV iron infusion. -GI on board Renal: -BUN/Cr stable -electrolytes within normal limits Endo: -A1C: 6.5 -restart home meds GI: -GI recs (Dr. Fuller) appreciated -c/w PPI therapy -anti platelet therapy held due to microcytic anemia -f/u outpatient elective EGD ID: -f/u BCx PPx, Diet, Disposition -GI: pepcid -PT eval on board Case discussed with Dr. Froy Mercado DO, PGY-1 <Wesley Mcduffie - Last Filed: 03/03/18 14:58> CCU Objective - Vital Signs / Intake & Output Vital Signs (Last 4 hours): Vital Signs Pulse Resp BP Pulse Ox 03/03/18 14:51 66 20 112/51 L 99 03/03/18 14:00 66 19 96 03/03/18 13:52 69 22 122/54 L 97 03/03/18 13:00 70 18 97 11/23/18 12:51 70 27 H 148/62 97 03/03/18 12:00 70 18 98 03/03/18 11:52 70 22 146/90 96 03/03/18 11:00 74 16 Intake and Output (Last 8hrs): Intake & Output 03/02/18 03/03/18 03/03/18 22:59 06:59 14:59 Intake Total 460 220 240 Output Total 1000 400 200 Balance -540 -180 40 Weight 214 lb 4.8 oz Intake: Oral 460 220 240 Output: Urine 1000 400 200 Urine, Voided 1000 400 200 Other: # Voids Urine, Voided 1 0 0 # Bowel Movements 0 0 0 - Medications Active Medications: Active Medications Generic Name Dose Route Start Last Admin Trade Name Freq PRN Reason Stop Dose Admin Aspirin 81 mg 02/28/18 10:00 02/28/18 10:03 Ecotrin PO Not Given DAILY JESSICA Clopidogrel Bisulfate 75 mg 02/28/18 10:00 02/28/18 10:03 Plavix PO Not Given DAILY JESSICA Gabapentin 600 mg 02/28/18 10:00 03/03/18 09:40 Neurontin PO 600 mg DAILY JESSICA Administration Ferric Sodium Gluconate 110 mls @ 110 mls/hr 02/28/18 14:00 03/03/18 13:33 Complex 125 mg/ Sodium IVPB 03/08/18 14:01 110 mls/hr Chloride Q24H JESSICA Administration Ceftriaxone Sodium 50 mls @ 100 mls/hr 03/03/18 11:00 03/03/18 12:33 Rocephin Iv 1 Gm Duplex IVPB 100 mls/hr Q24H JESSICA Administration Protocol Metoprolol Tartrate 50 mg 02/27/18 18:00 03/03/18 09:40 Lopressor PO 50 mg BID JESSICA Administration Ondansetron HCl 4 mg 02/28/18 21:49 02/28/18 22:03 Zofran Inj IVP 4 mg Q4H PRN Administration Nausea/Vomiting Pantoprazole Sodium 40 mg 03/02/18 10:00 03/03/18 09:40 Protonix Ec Tab PO 40 mg DAILY JESSICA Administration Polyethylene Glycol 17 gm 02/28/18 15:33 02/28/18 18:27 Miralax PO 17 gm BID PRN Administration Constipation Rosuvastatin Calcium 5 mg 02/27/18 22:00 03/02/18 22:33 Crestor PO 5 mg HS JESSICA Administration Sitagliptin Phosphate 50 mg 02/28/18 10:00 03/03/18 09:40 Januvia PO 50 mg DAILY JESSICA Administration - Patient Studies Lab Studies: Microbiology Studies 02/27/18 15:59 Blood Culture - Preliminary Blood NO GROWTH AFTER 3 DAYS 02/27/18 15:05 Blood Culture - Preliminary Blood NO GROWTH AFTER 3 DAYS Lab Studies 03/03/18 03/03/18 03/03/18 Range/Units 13:15 10:14 07:42 WBC (4.8-10.8) K/uL RBC (3.80-5.20) Mil/uL Hgb (11.0-16.0) g/dL Hct (34.0-47.0) % MCV (81.0-99.0) fL MCH (27.0-31.0) pg MCHC (33.0-37.0) g/dL RDW (11.5-14.5) % Plt Count (130-400) K/uL MPV (7.2-11.7) fL Sodium (132-148) mmol/L Potassium (3.6-5.2) mmol/L Chloride (98-107) mmol/L Carbon Dioxide (22-30) mmol/L Anion Gap (10-20) BUN (7-17) mg/dL Creatinine (0.7-1.2) mg/dL Est GFR ( Amer) Est GFR (Non-Af Amer) POC Glucose (mg/dL) 104 (65-110) mg/dL Random Glucose (65-105) mg/dL Calcium (8.6-10.4) mg/dl Total Bilirubin (0.2-1.3) mg/dL AST (14-36) U/L ALT (9-52) U/L Alkaline Phosphatase (38-126) U/L Total Protein (6.3-8.3) g/dL Albumin (3.5-5.0) g/dL Globulin (2.2-3.9) gm/dL Albumin/Globulin Ratio (1.0-2.1) Urine Color Yellow (YELLOW) Urine Clarity Hazy (Clear) Urine pH 7.0 (5.0-8.0) Ur Specific [place] 1.014 (1.003-1.030) Urine Protein Negative (NEGATIVE) mg/dL Urine Glucose (UA) Normal (Normal) mg/dL Urine Ketones Negative (NEGATIVE) mg/dL Urine Blood Negative (NEGATIVE) Urine Nitrate Negative (NEGATIVE) Urine Bilirubin Negative (NEGATIVE) Urine Urobilinogen 4.0 H (0.2-1.0) mg/dL Ur Leukocyte Esterase Neg (Negative) Sadia/uL Urine WBC (Auto) 1 (0-5) /hpf Urine RBC (Auto) < 1 (0-3) /hpf Ur Squamous Epith Cells 10 H (0-5) /hpf Urine Bacteria Rare (<OCC) Influenza Typ A,B (EIA) Negative for flu a/b (NEGATIVE) 03/03/18 03/03/18 03/02/18 Range/Units 06:33 06:33 21:26 WBC 9.4 (4.8-10.8) K/uL RBC 4.53 (3.80-5.20) Mil/uL Hgb 10.1 L (11.0-16.0) g/dL Hct 33.4 L (34.0-47.0) % MCV 73.9 L (81.0-99.0) fL MCH 22.4 L (27.0-31.0) pg MCHC 30.3 L (33.0-37.0) g/dL RDW 25.6 H (11.5-14.5) % Plt Count 250 (130-400) K/uL MPV 8.8 (7.2-11.7) fL Sodium 136 (132-148) mmol/L Potassium 4.2 (3.6-5.2) mmol/L Chloride 89 L (98-107) mmol/L Carbon Dioxide 39 H (22-30) mmol/L Anion Gap 12 (10-20) BUN 9 (7-17) mg/dL Creatinine 0.6 L (0.7-1.2) mg/dL Est GFR ( Amer) > 60 Est GFR (Non-Af Amer) > 60 POC Glucose (mg/dL) 134 H (65-110) mg/dL Random Glucose 108 H (65-105) mg/dL Calcium 9.6 (8.6-10.4) mg/dl Total Bilirubin 0.9 (0.2-1.3) mg/dL AST 20 (14-36) U/L ALT 23 (9-52) U/L Alkaline Phosphatase 100 (38-126) U/L Total Protein 6.9 (6.3-8.3) g/dL Albumin 3.7 (3.5-5.0) g/dL Globulin 3.2 (2.2-3.9) gm/dL Albumin/Globulin Ratio 1.2 (1.0-2.1) Urine Color (YELLOW) Urine Clarity (Clear) Urine pH (5.0-8.0) Ur Specific [place] (1.003-1.030) Urine Protein (NEGATIVE) mg/dL Urine Glucose (UA) (Normal) mg/dL Urine Ketones (NEGATIVE) mg/dL Urine Blood (NEGATIVE) Urine Nitrate (NEGATIVE) Urine Bilirubin (NEGATIVE) Urine Urobilinogen (0.2-1.0) mg/dL Ur Leukocyte Esterase (Negative) Sadia/uL Urine WBC (Auto) (0-5) /hpf Urine RBC (Auto) (0-3) /hpf Ur Squamous Epith Cells (0-5) /hpf Urine Bacteria (<OCC) Influenza Typ A,B (EIA) (NEGATIVE) 03/02/18 03/02/18 03/02/18 Range/Units 16:32 11:14 07:24 WBC (4.8-10.8) K/uL RBC (3.80-5.20) Mil/uL Hgb (11.0-16.0) g/dL Hct (34.0-47.0) % MCV (81.0-99.0) fL MCH (27.0-31.0) pg MCHC (33.0-37.0) g/dL RDW (11.5-14.5) % Plt Count (130-400) K/uL MPV (7.2-11.7) fL Sodium (132-148) mmol/L Potassium (3.6-5.2) mmol/L Chloride (98-107) mmol/L Carbon Dioxide (22-30) mmol/L Anion Gap (10-20) BUN (7-17) mg/dL Creatinine (0.7-1.2) mg/dL Est GFR ( Amer) Est GFR (Non-Af Amer) POC Glucose (mg/dL) 128 H 183 H 129 H (65-110) mg/dL Random Glucose (65-105) mg/dL Calcium (8.6-10.4) mg/dl Total Bilirubin (0.2-1.3) mg/dL AST (14-36) U/L ALT (9-52) U/L Alkaline Phosphatase (38-126) U/L Total Protein (6.3-8.3) g/dL Albumin (3.5-5.0) g/dL Globulin (2.2-3.9) gm/dL Albumin/Globulin Ratio (1.0-2.1) Urine Color (YELLOW) Urine Clarity (Clear) Urine pH (5.0-8.0) Ur Specific [place] (1.003-1.030) Urine Protein (NEGATIVE) mg/dL Urine Glucose (UA) (Normal) mg/dL Urine Ketones (NEGATIVE) mg/dL Urine Blood (NEGATIVE) Urine Nitrate (NEGATIVE) Urine Bilirubin (NEGATIVE) Urine Urobilinogen (0.2-1.0) mg/dL Ur Leukocyte Esterase (Negative) Sadia/uL Urine WBC (Auto) (0-5) /hpf Urine RBC (Auto) (0-3) /hpf Ur Squamous Epith Cells (0-5) /hpf Urine Bacteria (<OCC) Influenza Typ A,B (EIA) (NEGATIVE) Laboratory Results - last 24 hr 03/02/18 03/02/18 03/02/18 07:24 11:14 16:32 WBC RBC Hgb Hct MCV MCH MCHC RDW Plt Count MPV Sodium Potassium Chloride Carbon Dioxide Anion Gap BUN Creatinine Est GFR ( Amer) Est GFR (Non-Af Amer) POC Glucose (mg/dL) 129 H 183 H 128 H Random Glucose Calcium Total Bilirubin AST ALT Alkaline Phosphatase Total Protein Albumin Globulin Albumin/Globulin Ratio Urine Color Urine Clarity Urine pH Ur Specific [place] Urine Protein Urine Glucose (UA) Urine Ketones Urine Blood Urine Nitrate Urine Bilirubin Urine Urobilinogen Ur Leukocyte Esterase Urine WBC (Auto) Urine RBC (Auto) Ur Squamous Epith Cells Urine Bacteria Influenza Typ A,B (EIA) 03/02/18 03/03/18 03/03/18 21:26 06:33 06:33 WBC 9.4 RBC 4.53 Hgb 10.1 L Hct 33.4 L MCV 73.9 L MCH 22.4 L MCHC 30.3 L RDW 25.6 H Plt Count 250 MPV 8.8 Sodium 136 Potassium 4.2 Chloride 89 L Carbon Dioxide 39 H Anion Gap 12 BUN 9 Creatinine 0.6 L Est GFR ( Amer) > 60 Est GFR (Non-Af Amer) > 60 POC Glucose (mg/dL) 134 H Random Glucose 108 H Calcium 9.6 Total Bilirubin 0.9 AST 20 ALT 23 Alkaline Phosphatase 100 Total Protein 6.9 Albumin 3.7 Globulin 3.2 Albumin/Globulin Ratio 1.2 Urine Color Urine Clarity Urine pH Ur Specific [place] Urine Protein Urine Glucose (UA) Urine Ketones Urine Blood Urine Nitrate Urine Bilirubin Urine Urobilinogen Ur Leukocyte Esterase Urine WBC (Auto) Urine RBC (Auto) Ur Squamous Epith Cells Urine Bacteria Influenza Typ A,B (EIA) 03/03/18 03/03/18 03/03/18 07:42 10:14 13:15 WBC RBC Hgb Hct MCV MCH MCHC RDW Plt Count MPV Sodium Potassium Chloride Carbon Dioxide Anion Gap BUN Creatinine Est GFR ( Amer) Est GFR (Non-Af Amer) POC Glucose (mg/dL) 104 Random Glucose Calcium Total Bilirubin AST ALT Alkaline Phosphatase Total Protein Albumin Globulin Albumin/Globulin Ratio Urine Color Yellow Urine Clarity Hazy Urine pH 7.0 Ur Specific [place] 1.014 Urine Protein Negative Urine Glucose (UA) Normal Urine Ketones Negative Urine Blood Negative Urine Nitrate Negative Urine Bilirubin Negative Urine Urobilinogen 4.0 H Ur Leukocyte Esterase Neg Urine WBC (Auto) 1 Urine RBC (Auto) < 1 Ur Squamous Epith Cells 10 H Urine Bacteria Rare Influenza Typ A,B (EIA) Negative for flu a/b Critical Care Progress Note - Nutrition Nutrition: Nutrition Category Date Time Status Heart Healthy Diet [DIET] Diets 02/27/18 Dinner Active Assessment/Plan - Assessment and Plan (Free Text) Plan: Patient seen and examined at bedside. Patient awake, alert, tolerating nasal canula. -Patient has hypoxic respiratory failuer and obesity hypoventilation syndrome -contineu NC during the day to keep spo2 b//w 90-92 -continue bi-pap at night -Patient remains hemodynamically stable. - Date & Time Date: 03/03/18 Time: 14:58
[2018-03-03] MEDS: Pantoprazole 40 mg EC Tab PO SCH (09:40)
--- NOTE | 2018-03-03 12:04 | PN ---
DATE: 03/03/2018 SUBJECTIVE: I had a long discussion with the daughter. She is still not waking up really. She is still sleeping most of the time. Very lethargic. When she arouse, we can talk with her, but she is not always appropriate, seems to be quite lost waiting for Neurology to come around. So far cultures are negative. PHYSICAL EXAMINATION: VITAL SIGNS: She has a 98.5 temperature, 167/68 blood pressure, 20 respiratory rate, 99% of oxygen saturation is up and down. ASSESSMENT AND PLAN: Pulmonology didnt see the patient, cardiology has been neuro hematology, eyes nose and throat. for their opinion,consult Continue with aggressive treatment and care. We will order cultures and labs. intensive care unit. She had a severe anemia, symptomatic with coronary artery disease, congestive heart failure, hypertension, pneumonia, had an MRI of the brain Valente Lozano DO MTDEsther
[2018-03-03] MEDS: cefTRIAXone IV 1 gm in Dextros 50 ML IVPB SCH (12:33)
[2018-03-03] MEDS ORDERED: Ferric Sodium Gluconat Complex 62.5 mg/5 ml Vial ONE (13:24)
[2018-03-03 13:33] LABS: SQUAMOUS EPITHIAL 10 /hpf (0-5); URINE BACTERIA RARE (<OCC); URINE BILIRUBIN NEGATIVE (NEGATIVE); URINE BLOOD NEGATIVE (NEGATIVE); URINE CLARITY Hazy (Clear); URINE COLOR Yellow (YELLOW); URINE GLUCOSE (UA) NORMAL (Normal); URINE LEUKOCYTE ESTERASE NEG Leu/uL (Negative); URINE PROTEIN NEGATIVE (NEGATIVE)
[2018-03-03] MEDS: Ferric Sodium Gluconat Complex 125 MG in Sodium Chloride 0.9% 100 ML IVPB SCH (13:33)
--- NOTE | 2018-03-03 16:23 | CP.PCM.CON ---
History of Present Illness - History of Present Illness History of Present Illness: Patient is a 68 year old F with PMHx of CVA , ID (3 episodes), Riana's syndrome, syphilis, HTN, HLD, NIDDM, gout presenting to the ED with worsening shortness of breath, dyspnea on exertion, orthopnea, and dry cough for the past 2 weeks. Referred for ID eval of AMS PMHx: CVA (multiple episodes), ID (3 episodes), Riana's syndrome, syphilis, HTN, HLD, NIDDM, gout PSHx: Heart stent (06/2013), Left ankle surgery, Right eye surgery, Right ovarian cyst surgery, Spinal cord stimulator surgery Allergies: Lyrica Home Medications: as per EMR Social Hx: + tobacco use, denies alcohol or illicit drug use Family Hx: unknown Review of Systems - Constitutional Constitutional: Malaise, Weakness - EENT Eyes: absent: As Per HPI, Blind Spots, Blurred Vision, Change in Vision, Decreased Night Vision, Diplopia, Discharge, Dry Eye, Exophthalmos, Floaters, Irritation, Itchy Eyes, Loss of Peripheral Vision, Pain, Photophobia, Requires Corrective Lenses, Sees Flashes, Spots in Vision, Tunnel Vision, Other Visual Disturbances, Loss of Vision, Other Ears: absent: As Per HPI, Decreased Hearing, Ear Discharge, Ear Pain, Tinnitus, Abnormal Hearing, Disequilibrium, Dizziness, Other Nose/Mouth/Throat: absent: As Per HPI, Epistaxis, Nasal Congestion, Nasal Discharge, Nasal Obstruction, Nasal Trauma, Nose Pain, Post Nasal Drip, Sinus Pain, Sinus Pressure, Bleeding Gums, Change in Voice, Dental Pain, Dry Mouth, Dysphagia, Halitosis, Hoarsness, Lip Swelling, Mouth Lesions, Mouth Pain, Odynophagia, Sore Throat, Throat Swelling, Tongue Swelling, Facial Pain, Neck P ain, Neck Mass, Other - Cardiovascular Cardiovascular: Dyspnea, Orthopnea - Respiratory Respiratory: Dyspnea - Gastrointestinal Gastrointestinal: absent: As Per HPI, Abdominal Pain, Belching, Bloating, Change in Bowel Habits, Change in Stool Character, Coffee Ground Emesis, Constipation, Cramping, Diarrhea, Dyspepsia, Dysphagia, Early Satiety, Excessive Flatus, Fecal Incontinence, Heartburn, Hematemesis, Hematochezia, Loose Stools, Melena, Nausea, Odynophagia, Temesmus, Vomiting, Other - Genitourinary Genitourinary: absent: As Per HPI, Change in Urinary Stream, Difficulty Urinating, Dysuria, Flank Pain, Hematuria, Pyuria, Nocturia, Urinary Incontinence, Urinary Frequency, Urinary Hesitance, Urinary Urgency, Voiding Freq/Small Amts, Freq UTI, Hx Renal/Bladder Calculi, Hx /Renal Surgery, Bladder Distension, Other - Musculoskeletal Musculoskeletal: absent: As Per HPI, Abnormal Gait, Arthralgias, Atrophy, Back Pain, Deformity, Joint Swelling, Limited Range of Motion, Loss of Height, Muscle Cramps, Muscle Weakness, Myalgias, Neck Pain, Numbness, Radiating Pain into Limb, Stiffness, Tingling, Other - Integumentary Integumentary: absent: As Per HPI, Acne, Alopecia, Bleeding Lesions, Change in Hair, Change in Nails, Change in Pigmentation, Changing Lesions, Dry Skin, Erythema, Furuncle, Hirsutism, Lesions, New Lesions, Non-Healing Lesions, Photosensitivity, Pruritus, Rash, Skin Pain, Skin Ulcer, Sores, Striae, Swelling, Unusual Bruising, Wounds, Jaundice, Other - Neurological Neurological: absent: As Per HPI, Abnormal Gait, Abnormal Hearing, Abnormal Movements, Abnormal Speech, Behavioral Changes, Burning Sensations, Confusion, Convulsions, Disequilibrium, Dizziness, Numbness, Focal Weakness, Frequent Fa lls, Headaches, Lack of Coordination, Loss of Vision, Memory Loss, Paresthesias, Radicular Pain, Restless Legs, Sensory Deficit, Syncope, Tingling, Tremor, Vertigo, Weakness, Other Visual Disturbances, Other - Psychiatric Psychiatric: absent: As Per HPI, Abnormal Sleep Pattern, Anhedonia, Anxiety, Auditory Hallucinations, Behavioral Changes, Change in Appetite, Change in Libido, Confusion, Depression, Difficulty Concentrating, Hallucinations, Homicidal Ideation, Hopelessness, Irritability, Memory Loss, Mood Swings, Panic Attacks, Paranoia, Suicidal Ideation, Visual Hallucinations, Tactile Hallucinations, Other - Endocrine Endocrine: absent: As Per HPI, Change in Body Appearance, Change in Libido, Cold Intolorance, Deepening of Voice, Excessive Sweating, Fatigue, Flushing, Heat Intolorance, Increase in Ring/Shoe/Hat Size, Palpitations, Polydipsia, Polyphagia, Polyuria, Other - Hematologic/Lymphatic Hematologic: absent: As Per HPI, Easy Bleeding, Easy Bruising, Lymphadenopathy, Other Past Patient History - Infectious Disease Hx of Infectious Diseases: None - Past Medical History & Family History Past Medical History?: Yes - Past Social History Smoking Status: Current Some Days Smoker - CARDIAC Hx Hypercholesterolemia: Yes Hx Hypertension: Yes - PULMONARY Hx Respiratory Disorders: No - NEUROLOGICAL Hx Transient Ischemic Attacks (TIA): Yes (x9 no deficits) - HEENT Hx HEENT Problems: No (RIGHT EYE SURGERY -LAZY EYE) Other/Comment: 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, 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 brreaking since 2012, wears eyeglasses - RENAL Hx Chronic Kidney Disease: No - ENDOCRINE/METABOLIC Hx Diabetes Mellitus Type 1: Yes (dx 02/2013) - HEMATOLOGICAL/ONCOLOGICAL Hx Blood Disorders: No - INTEGUMENTARY Hx Dermatological Problems: No - MUSCULOSKELETAL/RHEUMATOLOGICAL Hx Arthritis: Yes - GASTROINTESTINAL Hx Gastrointestinal Disorders: Yes (obese) - GENITOURINARY/GYNECOLOGICAL Hx Incontinence: Yes (uses depends) Other/Comment: ovarian cyst removed - PSYCHIATRIC Hx Substance Use: No - SURGICAL HISTORY Hx Cardiac Catheterization: Yes Hx Eye Surgery: Yes Hx Musculoskeletal Surgery: Yes (LEFT ANKLE SURGERY from fall) Other/Comment: hardware removed left ankle, ovarian cyst removed, spinal cord implant styimulator at [facility] [address] moe - ANESTHESIA Hx Anesthesia: Yes Hx Anesthesia Reactions: Yes (pt doesn't remember) Hx Malignant Hyperthermia: No Has any member of the family had a problem w/ anesthesia?: No Meds Allergies/Adverse Reactions: Allergies Allergy/AdvReac Type Severity Reaction Status Date / Time pregabalin [From Lyrica] Allergy ANGIOEDEMA Verified 01/15/17 19:27 - Medications Medications: Current Medications Aspirin (Ecotrin) 81 mg PO DAILY [facility] Last Admin: 02/28/18 10:03 Dose: Not Given Clopidogrel Bisulfate (Plavix) 75 mg PO DAILY [facility] Last Admin: 02/28/18 10:03 Dose: Not Given Gabapentin (Neurontin) 600 mg PO DAILY [facility] Last Admin: 03/03/18 09:40 Dose: 600 mg Ferric Sodium Gluconate Complex 125 mg/ Sodium Chloride 110 mls @ 110 mls/hr IVPB Q24H [facility] Stop: 03/08/18 14:01 Last Admin: 03/03/18 13:33 Dose: 110 mls/hr Ceftriaxone Sodium (Rocephin Iv 1 Gm Duplex) 50 mls @ 100 mls/hr IVPB Q24H [facility]; Protocol Last Admin: 03/03/18 12:33 Dose: 100 mls/hr Metoprolol Tartrate (Lopressor) 50 mg PO BID [facility] Last Admin: 03/03/18 09:40 Dose: 50 mg Ondansetron HCl (Zofran Inj) 4 mg IVP Q4H PRN PRN Reason: Nausea/Vomiting Last Admin: 02/28/18 22:03 Dose: 4 mg Pantoprazole Sodium (Protonix Ec Tab) 40 mg PO DAILY [facility] Last Admin: 03/03/18 09:40 Dose: 40 mg Polyethylene Glycol (Miralax) 17 gm PO BID PRN PRN Reason: Constipation Last Admin: 02/28/18 18:27 Dose: 17 gm Rosuvastatin Calcium (Crestor) 5 mg PO HS [facility] Last Admin: 03/02/18 22:33 Dose: 5 mg Sitagliptin Phosphate (Januvia) 50 mg PO DAILY [facility] Last Admin: 03/03/18 09:40 Dose: 50 mg Physical Exam - Constitutional Appears: Non-toxic, No Acute Distress, Chronically Ill - Head Exam Head Exam: ATRAUMATIC, NORMOCEPHALIC - Eye Exam Eye Exam: EOMI, PERRL. absent: Scleral icterus - ENT Exam ENT Exam: Mucous Membranes Dry, Normal External Ear Exam - Neck Exam Neck exam: Negative for: Lymphadenopathy - Respiratory Exam Respiratory Exam: Decreased Breath Sounds, Clear to Auscultation Bilateral, Prolonged Expiratory Phase - Cardiovascular Exam Cardiovascular Exam: Irregular Rhythm, REGULAR RHYTHM, +S1, +S2 - GI/Abdominal Exam GI & Abdominal Exam: Diminished Bowel Sounds, Distended, Soft. absent: Tenderness - Rectal Exam Rectal Exam: Deferred - Exam Exam: NORMAL INSPECTION - Extremities Exam Extremities exam: Positive for: pedal pulses present. Negative for: calf tenderness, pedal edema, tenderness - Back Exam Back exam: absent: CVA tenderness (L), CVA tenderness (R) - Neurological Exam Neurological exam: Alert, Altered, CN II-XII Intact - Psychiatric Exam Psychiatric exam: Depressed - Skin Skin Exam: Dry Results - Vital Signs Recent Vital Signs: Last Vital Signs Temp 98.5 F 03/03/18 12:00 Pulse 68 03/03/18 16:00 Resp 15 03/03/18 16:00 BP 148/62 03/03/18 15:51 Pulse Ox 90 L 03/03/18 16:00 - Labs Result Diagrams: 03/03/18 06:33 03/03/18 06:33 Labs: Laboratory Results - last 24 hr 03/02/18 03/02/18 03/03/18 16:32 21:26 06:33 WBC 9.4 RBC 4.53 Hgb 10.1 L Hct 33.4 L MCV 73.9 L MCH 22.4 L MCHC 30.3 L RDW 25.6 H Plt Count 250 MPV 8.8 Sodium Potassium Chloride Carbon Dioxide Anion Gap BUN Creatinine Est GFR ( Amer) Est GFR (Non-Af Amer) POC Glucose (mg/dL) 128 H 134 H Random Glucose Calcium Total Bilirubin AST ALT Alkaline Phosphatase Total Protein Albumin Globulin Albumin/Globulin Ratio Urine Color Urine Clarity Urine pH Ur Specific [place] Urine Protein Urine Glucose (UA) Urine Ketones Urine Blood Urine Nitrate Urine Bilirubin Urine Urobilinogen Ur Leukocyte Esterase Urine WBC (Auto) Urine RBC (Auto) Ur Squamous Epith Cells Urine Bacteria Influenza Typ A,B (EIA) 03/03/18 03/03/18 03/03/18 06:33 07:42 10:14 WBC RBC Hgb Hct MCV MCH MCHC RDW Plt Count MPV Sodium 136 Potassium 4.2 Chloride 89 L Carbon Dioxide 39 H Anion Gap 12 BUN 9 Creatinine 0.6 L Est GFR ( Amer) > 60 Est GFR (Non-Af Amer) > 60 POC Glucose (mg/dL) 104 Random Glucose 108 H Calcium 9.6 Total Bilirubin 0.9 AST 20 ALT 23 Alkaline Phosphatase 100 Total Protein 6.9 Albumin 3.7 Globulin 3.2 Albumin/Globulin Ratio 1.2 Urine Color Urine Clarity Urine pH Ur Specific [place] Urine Protein Urine Glucose (UA) Urine Ketones Urine Blood Urine Nitrate Urine Bilirubin Urine Urobilinogen Ur Leukocyte Esterase Urine WBC (Auto) Urine RBC (Auto) Ur Squamous Epith Cells Urine Bacteria Influenza Typ A,B (EIA) Negative for flu a/b 03/03/18 13:15 WBC RBC Hgb Hct MCV MCH MCHC RDW Plt Count MPV Sodium Potassium Chloride Carbon Dioxide Anion Gap BUN Creatinine Est GFR ( Amer) Est GFR (Non-Af Amer) POC Glucose (mg/dL) Random Glucose Calcium Total Bilirubin AST ALT Alkaline Phosphatase Total Protein Albumin Globulin Albumin/Globulin Ratio Urine Color Yellow Urine Clarity Hazy Urine pH 7.0 Ur Specific [place] 1.014 Urine Protein Negative Urine Glucose (UA) Normal Urine Ketones Negative Urine Blood Negative Urine Nitrate Negative Urine Bilirubin Negative Urine Urobilinogen 4.0 H Ur Leukocyte Esterase Neg Urine WBC (Auto) 1 Urine RBC (Auto) < 1 Ur Squamous Epith Cells 10 H Urine Bacteria Rare Influenza Typ A,B (EIA) Assessment & Plan (1) Acute CHF Status: Acute (2) Hypoxia Status: Acute (3) Symptomatic anemia Status: Acute (4) Bradycardia Status: Acute (5) CAD (coronary artery disease) Status: Acute (6) CHF (congestive heart failure) Status: Acute (7) Hx of coronary artery disease Status: Acute (8) Diabetes mellitus Status: Chronic (9) Hypertension Status: Chronic - Assessment and Plan (Free Text) Assessment: 68 yo female with complex hx including multiple strokes, syphilis, ID DM and Horners syndroms admitted with AMS in setting of severe anemia GI malignancy to be ruled out - thus far all cultures negative and not overtly sepstic will check serologies consider LP when stable await cultures
--- NOTE | 2018-03-03 19:06 | CP.PCM.CON ---
History of Present Illness - History of Present Illness History of Present Illness: Reason for consultation: shortness of breath/hypoxemia 68F with extensive medical hx presenting with SOB, cough x 2 weeks and she was found to be severely anemia, Patients Hb on admission was 6.1 with MCV 67 and she was give 2 unit pRBC with appropriate response. Chest x-ray showed pulmonary congestion and elevated BNP.patient seen by cardiology and started on Lasix with diastolic dysfunction. Patient has long history of heavy smoking. denies cough, denies fever chills, denies chest pain. PMHx - She has history of CAD s/p stent (last 2013), CVA, T2DM, gout, syphilis, HTN PSHx - no abdominal or chest surgeries. FMHx - uncle and aunt both had colon cancer SocHx - denies alcohol. Current smoker. recently passed. 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, 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 brreaking since 2012, wears eyeglasses - RENAL Hx Chronic Kidney Disease: No - ENDOCRINE/METABOLIC Hx Diabetes Mellitus Type 1: Yes (dx 02/2013) - HEMATOLOGICAL/ONCOLOGICAL Hx Blood Disorders: No - INTEGUMENTARY Hx Dermatological Problems: No - MUSCULOSKELETAL/RHEUMATOLOGICAL Hx Arthritis: Yes - GASTROINTESTINAL Hx Gastrointestinal Disorders: Yes (obese) - GENITOURINARY/GYNECOLOGICAL Hx Incontinence: Yes (uses depends) Other/Comment: ovarian cyst removed - PSYCHIATRIC Hx Substance Use: No - SURGICAL HISTORY Hx Cardiac Catheterization: Yes Hx Eye Surgery: Yes Hx Musculoskeletal Surgery: Yes (LEFT ANKLE SURGERY from fall) Other/Comment: hardware removed left ankle, ovarian cyst removed, spinal cord implant styimulator at [facility] [address] moe - ANESTHESIA Hx Anesthesia: Yes Hx Anesthesia Reactions: Yes (pt doesn't remember) Hx Malignant Hyperthermia: No Has any member of the family had a problem w/ anesthesia?: No Meds Allergies/Adverse Reactions: Allergies Allergy/AdvReac Type Severity Reaction Status Date / Time pregabalin [From Lyrica] Allergy ANGIOEDEMA Verified 01/15/17 19:27 - Medications Medications: Current Medications Albuterol/Ipratropium (Duoneb 3 Mg/0.5 Mg (3 Ml) Ud) 3 ml INH RQ6 [facility] Aspirin (Ecotrin) 81 mg PO DAILY [facility] Last Admin: 02/28/18 10:03 Dose: Not Given Clopidogrel Bisulfate (Plavix) 75 mg PO DAILY [facility] Last Admin: 02/28/18 10:03 Dose: Not Given Furosemide (Lasix) 40 mg IVP Q12 [facility] Stop: 03/05/18 22:01 Gabapentin (Neurontin) 600 mg PO DAILY [facility] Last Admin: 03/03/18 09:40 Dose: 600 mg Ferric Sodium Gluconate Complex 125 mg/ Sodium Chloride 110 mls @ 110 mls/hr IVPB Q24H [facility] Stop: 03/08/18 14:01 Last Admin: 03/03/18 13:33 Dose: 110 mls/hr Ceftriaxone Sodium (Rocephin Iv 1 Gm Duplex) 50 mls @ 100 mls/hr IVPB Q24H [facility]; Protocol Last Admin: 03/03/18 12:33 Dose: 100 mls/hr Metoprolol Tartrate (Lopressor) 50 mg PO BID [facility] Last Admin: 03/03/18 17:27 Dose: 50 mg Ondansetron HCl (Zofran Inj) 4 mg IVP Q4H PRN PRN Reason: Nausea/Vomiting Last Admin: 02/28/18 22:03 Dose: 4 mg Pantoprazole Sodium (Protonix Ec Tab) 40 mg PO DAILY [facility] Last Admin: 03/03/18 09:40 Dose: 40 mg Polyethylene Glycol (Miralax) 17 gm PO BID PRN PRN Reason: Constipation Last Admin: 02/28/18 18:27 Dose: 17 gm Rosuvastatin Calcium (Crestor) 5 mg PO HS [facility] Last Admin: 03/02/18 22:33 Dose: 5 mg Sitagliptin Phosphate (Januvia) 50 mg PO DAILY [facility] Last Admin: 03/03/18 09:40 Dose: 50 mg Physical Exam - Head Exam Head Exam: ATRAUMATIC, NORMOCEPHALIC - Eye Exam Eye Exam: Normal appearance - ENT Exam ENT Exam: Mucous Membranes Moist - Neck Exam Neck exam: Positive for: Normal Inspection - Respiratory Exam Respiratory Exam: Decreased Breath Sounds - Cardiovascular Exam Cardiovascular Exam: REGULAR RHYTHM - GI/Abdominal Exam GI & Abdominal Exam: Normal Bowel Sounds, Soft - Extremities Exam Extremities exam: Positive for: normal inspection Results - Vital Signs Recent Vital Signs: Last Vital Signs Temp 98.2 F 03/03/18 16:00 Pulse 69 03/03/18 18:00 Resp 14 03/03/18 18:00 BP 137/65 03/03/18 17:51 Pulse Ox 100 03/03/18 18:00 - Labs Result Diagrams: 03/03/18 06:33 03/03/18 06:33 Labs: Laboratory Results - last 24 hr 03/02/18 03/03/18 03/03/18 21:26 06:33 06:33 WBC 9.4 RBC 4.53 Hgb 10.1 L Hct 33.4 L MCV 73.9 L MCH 22.4 L MCHC 30.3 L RDW 25.6 H Plt Count 250 MPV 8.8 Sodium 136 Potassium 4.2 Chloride 89 L Carbon Dioxide 39 H Anion Gap 12 BUN 9 Creatinine 0.6 L Est GFR ( Amer) > 60 Est GFR (Non-Af Amer) > 60 POC Glucose (mg/dL) 134 H Random Glucose 108 H Calcium 9.6 Total Bilirubin 0.9 AST 20 ALT 23 Alkaline Phosphatase 100 Total Protein 6.9 Albumin 3.7 Globulin 3.2 Albumin/Globulin Ratio 1.2 Urine Color Urine Clarity Urine pH Ur Specific [place] Urine Protein Urine Glucose (UA) Urine Ketones Urine Blood Urine Nitrate Urine Bilirubin Urine Urobilinogen Ur Leukocyte Esterase Urine WBC (Auto) Urine RBC (Auto) Ur Squamous Epith Cells Urine Bacteria Influenza Typ A,B (EIA) Ur L.pneumophila Ag 03/03/18 03/03/18 03/03/18 07:42 10:14 13:15 WBC RBC Hgb Hct MCV MCH MCHC RDW Plt Count MPV Sodium Potassium Chloride Carbon Dioxide Anion Gap BUN Creatinine Est GFR ( Amer) Est GFR (Non-Af Amer) POC Glucose (mg/dL) 104 Random Glucose Calcium Total Bilirubin AST ALT Alkaline Phosphatase Total Protein Albumin Globulin Albumin/Globulin Ratio Urine Color Yellow Urine Clarity Hazy Urine pH 7.0 Ur Specific [place] 1.014 Urine Protein Negative Urine Glucose (UA) Normal Urine Ketones Negative Urine Blood Negative Urine Nitrate Negative Urine Bilirubin Negative Urine Urobilinogen 4.0 H Ur Leukocyte Esterase Neg Urine WBC (Auto) 1 Urine RBC (Auto) < 1 Ur Squamous Epith Cells 10 H Urine Bacteria Rare Influenza Typ A,B (EIA) Negative for flu a/b Ur L.pneumophila Ag 03/03/18 03/03/18 16:18 Unknown WBC RBC Hgb Hct MCV MCH MCHC RDW Plt Count MPV Sodium Potassium Chloride Carbon Dioxide Anion Gap BUN Creatinine Est GFR ( Amer) Est GFR (Non-Af Amer) POC Glucose (mg/dL) 123 H Random Glucose Calcium Total Bilirubin AST ALT Alkaline Phosphatase Total Protein Albumin Globulin Albumin/Globulin Ratio Urine Color Urine Clarity Urine pH Ur Specific [place] Urine Protein Urine Glucose (UA) Urine Ketones Urine Blood Urine Nitrate Urine Bilirubin Urine Urobilinogen Ur Leukocyte Esterase Urine WBC (Auto) Urine RBC (Auto) Ur Squamous Epith Cells Urine Bacteria Influenza Typ A,B (EIA) Ur L.pneumophila Ag Negative Assessment & Plan (1) Acute CHF Status: Acute Comment: continue Lasix. Followup chest x-ray (2) Hypoxia Assessment and Plan: Rule out underlying COPD with long history of smoking CAT scan of chest Nebulizer treatment Steroids Continue antibiotics Status: Acute (3) Anemia Status: Acute
[2018-03-03] MEDS: Albuterol-Ipratrop 3 mg / 0.5 (3 ml) UD INH SCH (19:58)
--- NOTE | 2018-03-04 01:33 | CON ---
DATE: 03/03/2018 HISTORY OF PRESENT ILLNESS: This is a 68-year-old black female with past medical history of hypertension, diabetes, high cholesterol, Riana's syndrome, CVA, [place], gout, came with the shortness of breath on exertion, dry cough for two weeks. Daughter at bedside called us to evaluate for altered mental status. PAST MEDICAL HISTORY: CVA, Riana's syndrome, syphilis, hypertension, diabetes, gout. ALLERGIES: TO LYRICA. SOCIAL HISTORY: Smokes. Does not drink. REVIEW OF SYSTEMS: Ten-point of review of system was negative except for shortness of breath and CHF. PHYSICAL EXAMINATION: VITAL SIGNS: Blood pressure 148/62. HEENT: Normocephalic and atraumatic. NECK: Supple. NEUROLOGIC: Awake, alert, and oriented to self and place. Cranial nerves II through XII are tested. Pupils reactive. EOM intact. Visual toure full. No facial asymmetry. Tongue midline. Motor examination: Spontaneous movement of the extremities noted. Deep tendon reflexes 1+. Both plantars downgoing. Sensory appears intact. Cerebellar, gait deferred. LABORATORY DATA: WBC 9.4, hemoglobin at 10.1, hematocrit 33.4, platelets 250. Sodium 136, potassium 4.2, chloride 89, CO2 of 39, glucose 108, BUN 9, creatinine 0.6. IMPRESSION: The patient is 68-year-old with multiple medical problems, admitted with acute congestive heart failure and also had a coronary artery disease, diabetes, hypertension, presented with change in mental status and daughter at bedside. We will order the CAT scan of the head without contrast and workup. We will progress. We will follow up. Jonny Mcnamara MD
[2018-03-04] MEDS: Albuterol-Ipratrop 3 mg / 0.5 (3 ml) UD INH SCH ×4 (02:28→20:41)
--- NOTE | 2018-03-04 08:40 | CT ---
Date of service: 03/03/2018 PROCEDURE: CT HEAD WITHOUT CONTRAST. HISTORY: ams COMPARISON: None available. TECHNIQUE: Axial computed tomography images were obtained through the head/brain without intravenous contrast. Radiation dose: Total exam DLP = 1058.66 mGy-cm. This CT exam was performed using one or more of the following dose reduction techniques: Automated exposure control, adjustment of the mA and/or kV according to patient size, and/or use of iterative reconstruction technique. FINDINGS: HEMORRHAGE: No intracranial hemorrhage. BRAIN: No mass effect or edema. No significant atrophy. Minimal chronic periventricular white matter ischemic change. Old lacunar infarct anterior limb left internal capsule. Old right pontine lacune. No evidence of acute infarct. VENTRICLES: Unremarkable. No hydrocephalus. CALVARIUM: Unremarkable. PARANASAL SINUSES: Minimal chronic ethmoid, sphenoid and frontal sinusitis. Maxillary sinuses not evaluated in this examination. MASTOID AIR CELLS: Unremarkable as visualized. No inflammatory changes. OTHER FINDINGS: None. IMPRESSION: No intracranial mass, hemorrhage or evidence of acute infarct. Mild chronic paranasal sinusitis. The preliminary findings for this examination were reported by [facility] at 7:32 p.m. on 03/03/2018. There is concurrence of this report with the preliminary findings.
[2018-03-04 08:53] LABS: BASO % 0.4 % (0.0-2.0); EOS # 0.1 K/uL (0.0-0.7); EOS % 0.8 % (0.0-4.0); LYMPH # 1.3 K/uL (1.0-4.3); LYMPH % 14.2 % (20.0-40.0); MEAN CELL VOLUME 74.4 fL (81.0-99.0); MEAN CORPUSCULAR HEMOGLOBIN 22.8 pg (27.0-31.0); MEAN CORPUSCULAR HGB CONC 30.6 g/dL (33.0-37.0); MEAN PLATELET VOLUME 8.9 fL (7.2-11.7); MONO # 0.5 K/uL (0.0-0.8); MONO % 5.8 % (0.0-10.0); NEUT # 7.1 K/uL (1.8-7.0); NEUT % 78.8 % (50.0-75.0); NRBC % 0.1 % (0.0-2.0); RBC 4.81 Mil/uL (3.80-5.20); RED CELL DISTRIBUTION WIDTH 26.7 % (11.5-14.5)
[2018-03-04 09:13] LABS: ALBUMIN 3.6 g/dL (3.5-5.0); ALT/SGPT 22 U/L (9-52); AST/SGOT 32 U/L (14-36); BLOOD UREA NITROGEN 10 mg/dL (7-17); CALCIUM 9.8 mg/dl (8.6-10.4); GFR NON-AFRICAN AMERICAN > 60
[2018-03-04 09:39] LABS: HEPATITIS B SURFACE AG Negative (NEGATIVE)
[2018-03-04 09:45] LABS: HEPATITIS A IGM NEGATIVE (NEGATIVE); HEPATITIS B CORE AB NEGATIVE (NEGATIVE)
[2018-03-04 09:56] LABS: HEPATITIS C ANTIBODY NEGATIVE (NEGATIVE)
[2018-03-04] MEDS: Pantoprazole 40 mg EC Tab PO SCH (10:36)
[2018-03-04] MEDS: cefTRIAXone IV 1 gm in Dextros 50 ML IVPB SCH (10:37)
[2018-03-04 12:40] LABS: N MENINGITIS ACY/W135 NEGATIVE (NEGATIVE); N MENINGITIS B/ECOLI K1 NEGATIVE (NEGATIVE); STREP PNEUMONIAE NEGATIVE (NEGATIVE); STREPTOCOCCUS B NEGATIVE (NEGATIVE)
--- NOTE | 2018-03-04 13:02 | RAD ---
Date of service: 03/04/2018 HISTORY: CHF COMPARISON: 03/02/2018 FINDINGS: LUNGS: No active pulmonary disease. PLEURA: No significant pleural effusion identified, no pneumothorax apparent. CARDIOVASCULAR: No aortic atherosclerotic calcification present. Normal cardiac size. No pulmonary vascular congestion. OSSEOUS STRUCTURES: No significant abnormalities. VISUALIZED UPPER ABDOMEN: Normal. OTHER FINDINGS: Spinal stimulator noted. IMPRESSION: No active disease.
--- NOTE | 2018-03-04 16:04 | CP.PCM.PCO ---
Physician Communication Note - Physician Communication Note Physician Communication Note: ams sec to hypoxemia and acute chf. metabolic encephalopathy.
[2018-03-04] MEDS: Ferric Sodium Gluconat Complex 125 MG in Sodium Chloride 0.9% 100 ML IVPB SCH (16:36)
--- NOTE | 2018-03-04 17:09 | CT ---
Date of service: 03/04/2018 PROCEDURE: CT Chest without contrast HISTORY: pleural effusion/atelectasis COMPARISON: None available. TECHNIQUE: Contiguous axial images were obtained through the chest without intravenous contrast enhancement. Sagittal and coronal reconstructions were performed. Radiation dose (DLP): 795.47 mGy-cm. This CT exam was performed using one or more of the following dose reduction techniques: Automated exposure control, adjustment of the mA and/or kV according to patient size, and/or use of iterative reconstruction technique. FINDINGS: LUNGS: Linear scar/atelectasis in both lower lobes. No pulmonary infiltrate. MEDIASTINUM: Unremarkable thoracic aorta. No aneurysm. Mild cardiomegaly. Coronary arterial calcification. Main pulmonary artery unremarkable. No vascular congestion. No lymphadenopathy. There is atherosclerotic calcification of the thoracic aorta. PLEURA: No pleural effusion. Minimal dependent pleural thickening in both lower lobes. BONES: No fracture. No destructive lesion. UPPER ABDOMEN: Grossly unremarkable. OTHER FINDINGS: Spinal stimulator noted. IMPRESSION: No infiltrate/pleural effusion. Minor findings as above.
--- NOTE | 2018-03-04 19:44 | CP.PCM.PN ---
Subjective - Date & Time of Evaluation Date of Evaluation: 03/04/18 - Subjective Subjective: patient seen and examined Breathing much better Afebrile Good urine output Continue Lasix Continue nebulizer treatment CAT scan of the chest showed no pleural effusion or infiltrate Objective - Vital Signs/Intake and Output Vital Signs (last 24 hours): Temp Pulse Resp BP Pulse Ox 97.6 F 67 18 162/77 H 97 03/04/18 08:00 03/04/18 04:00 03/04/18 08:00 03/04/18 10:36 03/04/18 08:00 Intake and Output: 03/04/18 03/05/18 18:59 06:59 Intake Total 400 Output Total 350 Balance 50 - Medications Medications: Current Medications Albuterol/Ipratropium (Duoneb 3 Mg/0.5 Mg (3 Ml) Ud) 3 ml INH RQ6 [facility] Last Admin: 03/04/18 13:48 Dose: Not Given Aspirin (Ecotrin) 81 mg PO DAILY [facility] Last Admin: 02/28/18 10:03 Dose: Not Given Clopidogrel Bisulfate (Plavix) 75 mg PO DAILY [facility] Last Admin: 02/28/18 10:03 Dose: Not Given Furosemide (Lasix) 40 mg IVP Q12 [facility] Stop: 03/05/18 22:01 Last Admin: 03/04/18 10:36 Dose: 40 mg Gabapentin (Neurontin) 600 mg PO DAILY [facility] Last Admin: 03/04/18 10:36 Dose: 600 mg Ferric Sodium Gluconate Complex 125 mg/ Sodium Chloride 110 mls @ 110 mls/hr IVPB Q24H [facility] Stop: 03/08/18 14:01 Last Admin: 03/04/18 16:36 Dose: 110 mls/hr Ceftriaxone Sodium (Rocephin Iv 1 Gm Duplex) 50 mls @ 100 mls/hr IVPB Q24H [facility]; Protocol Last Admin: 03/04/18 10:37 Dose: 100 mls/hr Metoprolol Tartrate (Lopressor) 50 mg PO BID [facility] Last Admin: 03/04/18 10:36 Dose: 50 mg Ondansetron HCl (Zofran Inj) 4 mg IVP Q4H PRN PRN Reason: Nausea/Vomiting Last Admin: 02/28/18 22:03 Dose: 4 mg Pantoprazole Sodium (Protonix Ec Tab) 40 mg PO DAILY [facility] Last Admin: 03/04/18 10:36 Dose: 40 mg Polyethylene Glycol (Miralax) 17 gm PO BID PRN PRN Reason: Constipation Last Admin: 02/28/18 18:27 Dose: 17 gm Rosuvastatin Calcium (Crestor) 5 mg PO HS [facility] Last Admin: 03/03/18 21:13 Dose: 5 mg Sitagliptin Phosphate (Januvia) 50 mg PO DAILY [facility] Last Admin: 03/04/18 10:36 Dose: 50 mg - Labs Labs: 03/04/18 08:32 03/04/18 08:32 PT 12.5 SECONDS (9.7-12.2) H 02/27/18 14:19 INR 1.1 02/27/18 14:19 APTT 38 SECONDS (21-34) H 02/27/18 14:19 Assessment and Plan (1) Acute CHF Status: Acute (2) Hypoxia Status: Acute (3) Anemia Status: Acute
[2018-03-05] MEDS: Albuterol-Ipratrop 3 mg / 0.5 (3 ml) UD INH SCH ×4 (02:20→20:30)
[2018-03-05 06:39] LABS: BASO # 0.1 K/uL (0.0-0.2); BASO % 0.6 % (0.0-2.0); EOS # 0.1 K/uL (0.0-0.7); EOS % 0.9 % (0.0-4.0); LYMPH # 1.4 K/uL (1.0-4.3); MEAN CELL VOLUME 74.4 fL (81.0-99.0); MEAN CORPUSCULAR HEMOGLOBIN 22.4 pg (27.0-31.0); MEAN CORPUSCULAR HGB CONC 30.1 g/dL (33.0-37.0); MEAN PLATELET VOLUME 9.3 fL (7.2-11.7); MONO # 0.7 K/uL (0.0-0.8); MONO % 6.1 % (0.0-10.0); NEUT # 8.8 K/uL (1.8-7.0); NEUT % 79.4 % (50.0-75.0); NRBC % 0.2 % (0.0-2.0); RBC 4.89 Mil/uL (3.80-5.20); RED CELL DISTRIBUTION WIDTH 27.2 % (11.5-14.5); WHITE BLOOD COUNT 11.1 K/uL (4.8-10.8)
[2018-03-05 06:46] LABS: ALB/GLOB RATIO 1.1 (1.0-2.1); ALBUMIN 3.8 g/dL (3.5-5.0); ALT/SGPT 17 U/L (9-52); AST/SGOT 31 U/L (14-36); BLOOD UREA NITROGEN 15 mg/dL (7-17); CALCIUM 9.6 mg/dl (8.6-10.4); GFR NON-AFRICAN AMERICAN > 60
[2018-03-05] MEDS: Pantoprazole 40 mg EC Tab PO SCH (09:20)
[2018-03-05] MEDS: cefTRIAXone IV 1 gm in Dextros 50 ML IVPB SCH (10:26)
--- NOTE | 2018-03-05 10:54 | PN ---
DATE: 03/05/2018 SUBJECTIVE: I saw her in the intensive care unit. She fed well. She is more oriented. She understands what is going on. She went through a lot while she is here. Hoping to get her to a subacute rehab tomorrow at [facility], or [facility] per her insurance, hopefully social media director, case management can hopefully tomorrow discharge her. She is feeling better. She has good questions today, which is great. MEDICATIONS: She is currently on Crestor, DuoNebs, Ecotrin, iron, Januvia, Lasix, Lopressor, Miralax, Neurontin, Plavix, Protonix, Rocephin, and Zofran. PHYSICAL EXAMINATION: VITAL SIGNS: Temp 97.9, 79 pulse, 132/71 blood pressure, 16 respiratory rate, 94% O2 sat nasal cannula 3 L. HEENT: Head is atraumatic, normocephalic. HEART: Regular rate. LUNGS: Decreased breath sounds, but clear. ABDOMEN: Soft, obese, nontender. EXTREMITIES: No edema. LABORATORY DATA: Sodium is 134, potassium 3.8, BUN is 50, creatinine 0.7, GFR is greater than 60, sugar is 116, calcium is 9.6, phosphorus 4.1, magnesium 1.5 going better. Total bili is 0.9, AST is 31, ALT is 17, alk phos 105, total protein 7.4. White count is 11.1, 11 hemoglobin, 36.4 hematocrit, 262 platelets. ASSESSMENT AND PLAN: She was here for multiple reasons, severe anemia, symptomatic anemia, coronary artery disease, congestive heart failure, hypertension, metabolic encephalopathy, low oxygen, altered mental status. We will continue with aggressive treatment and care. Hopefully tomorrow we are going to discharge her to , which is recommended by physical therapy. Valente Lozano DO MTDD
--- NOTE | 2018-03-05 13:21 | CP.PCM.PN ---
Subjective - Date & Time of Evaluation Date of Evaluation: 03/05/18 Time of Evaluation: 13:21 - Subjective Subjective: Pulmonary Follow up, Covering Dr Pires The patient was Seen/interviewed and examined by me at the bedside, Medical records reviewed and Management issues were discussed and formulated with the house staff. Events reviewed Objective - Vital Signs/Intake and Output Vital Signs (last 24 hours): Temp Pulse Resp BP Pulse Ox 97.4 F L 70 18 145/56 L 95 03/05/18 12:00 03/05/18 12:00 03/05/18 12:00 03/05/18 12:00 03/05/18 12:00 Intake and Output: 03/05/18 03/05/18 06:59 18:59 Intake Total 150 450 Output Total 800 0 Balance -650 450 - Medications Medications: Current Medications Albuterol/Ipratropium (Duoneb 3 Mg/0.5 Mg (3 Ml) Ud) 3 ml INH RQ6 [facility] Last Admin: 03/05/18 13:04 Dose: 3 ml Aspirin (Ecotrin) 81 mg PO DAILY [facility] Last Admin: 02/28/18 10:03 Dose: Not Given Clopidogrel Bisulfate (Plavix) 75 mg PO DAILY [facility] Last Admin: 02/28/18 10:03 Dose: Not Given Furosemide (Lasix) 40 mg IVP Q12 [facility] Stop: 03/05/18 22:01 Last Admin: 03/05/18 09:20 Dose: 40 mg Gabapentin (Neurontin) 600 mg PO DAILY [facility] Last Admin: 03/05/18 09:20 Dose: 600 mg Ferric Sodium Gluconate Complex 125 mg/ Sodium Chloride 110 mls @ 110 mls/hr IVPB Q24H [facility] Stop: 03/08/18 14:01 Last Admin: 03/04/18 16:36 Dose: 110 mls/hr Ceftriaxone Sodium (Rocephin Iv 1 Gm Duplex) 50 mls @ 100 mls/hr IVPB Q24H [facility]; Protocol Last Admin: 03/05/18 10:26 Dose: 100 mls/hr Metoprolol Tartrate (Lopressor) 50 mg PO BID [facility] Last Admin: 03/05/18 09:20 Dose: 50 mg Ondansetron HCl (Zofran Inj) 4 mg IVP Q4H PRN PRN Reason: Nausea/Vomiting Last Admin: 02/28/18 22:03 Dose: 4 mg Pantoprazole Sodium (Protonix Ec Tab) 40 mg PO DAILY [facility] Last Admin: 03/05/18 09:20 Dose: 40 mg Polyethylene Glycol (Miralax) 17 gm PO BID PRN PRN Reason: Constipation Last Admin: 02/28/18 18:27 Dose: 17 gm Rosuvastatin Calcium (Crestor) 5 mg PO HS [facility] Last Admin: 03/03/18 21:13 Dose: 5 mg Sitagliptin Phosphate (Januvia) 50 mg PO DAILY [facility] Last Admin: 03/05/18 09:59 Dose: 50 mg - Labs Labs: 03/05/18 04:00 03/05/18 06:20 PT 12.5 SECONDS (9.7-12.2) H 02/27/18 14:19 INR 1.1 02/27/18 14:19 APTT 38 SECONDS (21-34) H 02/27/18 14:19
[2018-03-05] MEDS ORDERED: Ferric Sodium Gluconat Complex 62.5 mg/5 ml Vial ONE (14:04)
--- NOTE | 2018-03-05 14:13 | CP.PCM.PN ---
Subjective - Date & Time of Evaluation Date of Evaluation: 03/05/18 Time of Evaluation: 08:00 - Subjective Subjective: CAT scan of the chest showed no pleural effusion or infiltrate awake alert less confused Objective - Vital Signs/Intake and Output Vital Signs (last 24 hours): Temp Pulse Resp BP Pulse Ox 97.4 F L 70 18 145/56 L 95 03/05/18 12:00 03/05/18 12:00 03/05/18 12:00 03/05/18 12:00 03/05/18 12:00 Intake and Output: 03/05/18 03/05/18 06:59 18:59 Intake Total 150 450 Output Total 800 0 Balance -650 450 - Medications Medications: Current Medications Albuterol/Ipratropium (Duoneb 3 Mg/0.5 Mg (3 Ml) Ud) 3 ml INH RQ6 [facility] Last Admin: 03/05/18 13:04 Dose: 3 ml Aspirin (Ecotrin) 81 mg PO DAILY [facility] Last Admin: 02/28/18 10:03 Dose: Not Given Clopidogrel Bisulfate (Plavix) 75 mg PO DAILY [facility] Last Admin: 02/28/18 10:03 Dose: Not Given Furosemide (Lasix) 40 mg IVP Q12 [facility] Stop: 03/05/18 22:01 Last Admin: 03/05/18 09:20 Dose: 40 mg Gabapentin (Neurontin) 600 mg PO DAILY [facility] Last Admin: 03/05/18 09:20 Dose: 600 mg Ferric Sodium Gluconate Complex 125 mg/ Sodium Chloride 110 mls @ 110 mls/hr IVPB Q24H [facility] Stop: 03/08/18 14:01 Last Admin: 03/04/18 16:36 Dose: 110 mls/hr Ceftriaxone Sodium (Rocephin Iv 1 Gm Duplex) 50 mls @ 100 mls/hr IVPB Q24H [facility]; Protocol Last Admin: 03/05/18 10:26 Dose: 100 mls/hr Metoprolol Tartrate (Lopressor) 50 mg PO BID [facility] Last Admin: 03/05/18 09:20 Dose: 50 mg Ondansetron HCl (Zofran Inj) 4 mg IVP Q4H PRN PRN Reason: Nausea/Vomiting Last Admin: 02/28/18 22:03 Dose: 4 mg Pantoprazole Sodium (Protonix Ec Tab) 40 mg PO DAILY [facility] Last Admin: 03/05/18 09:20 Dose: 40 mg Polyethylene Glycol (Miralax) 17 gm PO BID PRN PRN Reason: Constipation Last Admin: 02/28/18 18:27 Dose: 17 gm Rosuvastatin Calcium (Crestor) 5 mg PO HS [facility] Last Admin: 03/03/18 21:13 Dose: 5 mg Sitagliptin Phosphate (Januvia) 50 mg PO DAILY [facility] Last Admin: 03/05/18 09:59 Dose: 50 mg - Labs Labs: 03/05/18 04:00 03/05/18 06:20 PT 12.5 SECONDS (9.7-12.2) H 02/27/18 14:19 INR 1.1 02/27/18 14:19 APTT 38 SECONDS (21-34) H 02/27/18 14:19 - Constitutional Appears: Non-toxic, Chronically Ill - Head Exam Head Exam: NORMOCEPHALIC - Eye Exam Eye Exam: absent: Scleral icterus - ENT Exam ENT Exam: Mucous Membranes Dry - Neck Exam Neck Exam: absent: Lymphadenopathy - Respiratory Exam Respiratory Exam: Decreased Breath Sounds - Cardiovascular Exam Cardiovascular Exam: REGULAR RHYTHM - GI/Abdominal Exam GI & Abdominal Exam: Distended, Soft. absent: Tenderness - Rectal Exam Rectal Exam: Deferred - Exam Exam: NORMAL INSPECTION - Extremities Exam Extremities Exam: absent: Pedal Edema - Back Exam Back Exam: absent: CVA tenderness (L), CVA tenderness (R) - Neurological Exam Neurological Exam: Alert, Awake - Psychiatric Exam Psychiatric exam: Depressed - Skin Skin Exam: Dry Assessment and Plan (1) Acute CHF Status: Acute (2) Hypoxia Status: Acute (3) Symptomatic anemia Status: Acute (4) Bradycardia Status: Acute (5) CAD (coronary artery disease) Status: Acute (6) CHF (congestive heart failure) Status: Acute (7) Hx of coronary artery disease Status: Acute (8) Diabetes mellitus Status: Chronic (9) Hypertension Status: Chronic - Assessment and Plan (Free Text) Assessment: CAT scan of the chest showed no pleural effusion or infiltrate AMS resolving
[2018-03-05] MEDS: Ferric Sodium Gluconat Complex 125 MG in Sodium Chloride 0.9% 100 ML IVPB SCH (14:15)
--- NOTE | 2018-03-06 00:25 | CP.PCM.PN ---
Subjective - Date & Time of Evaluation Date of Evaluation: 03/01/18 Time of Evaluation: 12:00 - Subjective Subjective: Feels tired. Objective - Vital Signs/Intake and Output Vital Signs (last 24 hours): Temp Pulse Resp BP Pulse Ox 98.6 F 68 15 149/62 95 03/05/18 20:00 03/05/18 20:00 03/05/18 20:00 03/05/18 22:03 03/05/18 20:00 Intake and Output: 03/05/18 03/06/18 18:59 06:59 Intake Total 930 Output Total 850 Balance 80 - Medications Medications: Current Medications Albuterol/Ipratropium (Duoneb 3 Mg/0.5 Mg (3 Ml) Ud) 3 ml INH RQ6 [facility] Last Admin: 03/05/18 20:30 Dose: 3 ml Aspirin (Ecotrin) 81 mg PO DAILY [facility] Last Admin: 02/28/18 10:03 Dose: Not Given Clopidogrel Bisulfate (Plavix) 75 mg PO DAILY [facility] Last Admin: 02/28/18 10:03 Dose: Not Given Gabapentin (Neurontin) 600 mg PO DAILY [facility] Last Admin: 03/05/18 09:20 Dose: 600 mg Ferric Sodium Gluconate Complex 125 mg/ Sodium Chloride 110 mls @ 110 mls/hr IVPB Q24H [facility] Stop: 03/08/18 14:01 Last Admin: 03/05/18 14:15 Dose: 110 mls/hr Ceftriaxone Sodium (Rocephin Iv 1 Gm Duplex) 50 mls @ 100 mls/hr IVPB Q24H [facility]; Protocol Last Admin: 03/05/18 10:26 Dose: 100 mls/hr Metoprolol Tartrate (Lopressor) 50 mg PO BID [facility] Last Admin: 03/05/18 17:33 Dose: 50 mg Ondansetron HCl (Zofran Inj) 4 mg IVP Q4H PRN PRN Reason: Nausea/Vomiting Last Admin: 02/28/18 22:03 Dose: 4 mg Pantoprazole Sodium (Protonix Ec Tab) 40 mg PO DAILY [facility] Last Admin: 03/05/18 09:20 Dose: 40 mg Polyethylene Glycol (Miralax) 17 gm PO BID PRN PRN Reason: Constipation Last Admin: 02/28/18 18:27 Dose: 17 gm Rosuvastatin Calcium (Crestor) 5 mg PO [facility] Last Admin: 03/05/18 22:06 Dose: 5 mg Sitagliptin Phosphate (Januvia) 50 mg PO DAILY [facility] Last Admin: 03/05/18 09:59 Dose: 50 mg - Labs Labs: 03/05/18 04:00 03/05/18 06:20 PT 12.5 SECONDS (9.7-12.2) H 02/27/18 14:19 INR 1.1 02/27/18 14:19 APTT 38 SECONDS (21-34) H 02/27/18 14:19 - Head Exam Head Exam: ATRAUMATIC - Eye Exam Eye Exam: Normal appearance - ENT Exam ENT Exam: Mucous Membranes Dry - Respiratory Exam Respiratory Exam: NORMAL BREATHING PATTERN - Cardiovascular Exam Cardiovascular Exam: +S1, +S2 - GI/Abdominal Exam GI & Abdominal Exam: Normal Bowel Sounds Assessment and Plan (1) Anemia Assessment & Plan: work up consistent with iron deficiency anemia likely chronic occult GI blood loss s/p PRBC transfusion on IV iron GI w/u at some point. Status: Acute
--- NOTE | 2018-03-06 00:29 | CP.PCM.PN ---
Subjective - Date & Time of Evaluation Date of Evaluation: 03/03/18 Time of Evaluation: 18:00 - Subjective Subjective: More alert Objective - Vital Signs/Intake and Output Vital Signs (last 24 hours): Temp Pulse Resp BP Pulse Ox 98.6 F 68 15 149/62 95 03/05/18 20:00 03/05/18 20:00 03/05/18 20:00 03/05/18 22:03 03/05/18 20:00 Intake and Output: 03/05/18 03/06/18 18:59 06:59 Intake Total 930 Output Total 850 Balance 80 - Medications Medications: Current Medications Albuterol/Ipratropium (Duoneb 3 Mg/0.5 Mg (3 Ml) Ud) 3 ml INH RQ6 [facility] Last Admin: 03/05/18 20:30 Dose: 3 ml Aspirin (Ecotrin) 81 mg PO DAILY [facility] Last Admin: 02/28/18 10:03 Dose: Not Given Clopidogrel Bisulfate (Plavix) 75 mg PO DAILY [facility] Last Admin: 02/28/18 10:03 Dose: Not Given Gabapentin (Neurontin) 600 mg PO DAILY [facility] Last Admin: 03/05/18 09:20 Dose: 600 mg Ferric Sodium Gluconate Complex 125 mg/ Sodium Chloride 110 mls @ 110 mls/hr IVPB Q24H [facility] Stop: 03/08/18 14:01 Last Admin: 03/05/18 14:15 Dose: 110 mls/hr Ceftriaxone Sodium (Rocephin Iv 1 Gm Duplex) 50 mls @ 100 mls/hr IVPB Q24H [facility]; Protocol Last Admin: 03/05/18 10:26 Dose: 100 mls/hr Metoprolol Tartrate (Lopressor) 50 mg PO BID [facility] Last Admin: 03/05/18 17:33 Dose: 50 mg Ondansetron HCl (Zofran Inj) 4 mg IVP Q4H PRN PRN Reason: Nausea/Vomiting Last Admin: 02/28/18 22:03 Dose: 4 mg Pantoprazole Sodium (Protonix Ec Tab) 40 mg PO DAILY [facility] Last Admin: 03/05/18 09:20 Dose: 40 mg Polyethylene Glycol (Miralax) 17 gm PO BID PRN PRN Reason: Constipation Last Admin: 02/28/18 18:27 Dose: 17 gm Rosuvastatin Calcium (Crestor) 5 mg PO HS [facility] Last Admin: 03/05/18 22:06 Dose: 5 mg Sitagliptin Phosphate (Januvia) 50 mg PO DAILY [facility] Last Admin: 03/05/18 09:59 Dose: 50 mg - Labs Labs: 03/05/18 04:00 03/05/18 06:20 PT 12.5 SECONDS (9.7-12.2) H 02/27/18 14:19 INR 1.1 02/27/18 14:19 APTT 38 SECONDS (21-34) H 02/27/18 14:19 - Head Exam Head Exam: ATRAUMATIC - ENT Exam ENT Exam: Mucous Membranes Dry - Respiratory Exam Respiratory Exam: NORMAL BREATHING PATTERN - Cardiovascular Exam Cardiovascular Exam: +S1, +S2 - GI/Abdominal Exam GI & Abdominal Exam: Normal Bowel Sounds Assessment and Plan (1) Anemia Assessment & Plan: iron deficiency anemia of IV iron GI w/u at some point. Status: Acute
--- NOTE | 2018-03-06 00:30 | CP.PCM.PN ---
Subjective - Date & Time of Evaluation Date of Evaluation: 03/04/18 Time of Evaluation: 18:00 - Subjective Subjective: More alert. Objective - Vital Signs/Intake and Output Vital Signs (last 24 hours): Temp Pulse Resp BP Pulse Ox 98.6 F 68 15 149/62 95 03/05/18 20:00 03/05/18 20:00 03/05/18 20:00 03/05/18 22:03 03/05/18 20:00 Intake and Output: 03/05/18 03/06/18 18:59 06:59 Intake Total 930 Output Total 850 Balance 80 - Medications Medications: Current Medications Albuterol/Ipratropium (Duoneb 3 Mg/0.5 Mg (3 Ml) Ud) 3 ml INH RQ6 [facility] Last Admin: 03/05/18 20:30 Dose: 3 ml Aspirin (Ecotrin) 81 mg PO DAILY [facility] Last Admin: 02/28/18 10:03 Dose: Not Given Clopidogrel Bisulfate (Plavix) 75 mg PO DAILY [facility] Last Admin: 02/28/18 10:03 Dose: Not Given Gabapentin (Neurontin) 600 mg PO DAILY [facility] Last Admin: 03/05/18 09:20 Dose: 600 mg Ferric Sodium Gluconate Complex 125 mg/ Sodium Chloride 110 mls @ 110 mls/hr IVPB Q24H [facility] Stop: 03/08/18 14:01 Last Admin: 03/05/18 14:15 Dose: 110 mls/hr Ceftriaxone Sodium (Rocephin Iv 1 Gm Duplex) 50 mls @ 100 mls/hr IVPB Q24H [facility]; Protocol Last Admin: 03/05/18 10:26 Dose: 100 mls/hr Metoprolol Tartrate (Lopressor) 50 mg PO BID [facility] Last Admin: 03/05/18 17:33 Dose: 50 mg Ondansetron HCl (Zofran Inj) 4 mg IVP Q4H PRN PRN Reason: Nausea/Vomiting Last Admin: 02/28/18 22:03 Dose: 4 mg Pantoprazole Sodium (Protonix Ec Tab) 40 mg PO DAILY [facility] Last Admin: 03/05/18 09:20 Dose: 40 mg Polyethylene Glycol (Miralax) 17 gm PO BID PRN PRN Reason: Constipation Last Admin: 02/28/18 18:27 Dose: 17 gm Rosuvastatin Calcium (Crestor) 5 mg PO HS [facility] Last Admin: 03/05/18 22:06 Dose: 5 mg Sitagliptin Phosphate (Januvia) 50 mg PO DAILY [facility] Last Admin: 03/05/18 09:59 Dose: 50 mg - Labs Labs: 03/05/18 04:00 03/05/18 06:20 PT 12.5 SECONDS (9.7-12.2) H 02/27/18 14:19 INR 1.1 02/27/18 14:19 APTT 38 SECONDS (21-34) H 02/27/18 14:19 - Head Exam Head Exam: ATRAUMATIC - Eye Exam Eye Exam: Normal appearance - ENT Exam ENT Exam: Mucous Membranes Dry - Respiratory Exam Respiratory Exam: NORMAL BREATHING PATTERN - Cardiovascular Exam Cardiovascular Exam: +S1, +S2 - GI/Abdominal Exam GI & Abdominal Exam: Normal Bowel Sounds Assessment and Plan (1) Anemia Assessment & Plan: iron deficiency anemia on IV iron GI w/u at some point. Status: Acute
--- NOTE | 2018-03-06 00:31 | CP.PCM.PN ---
Subjective - Date & Time of Evaluation Date of Evaluation: 03/05/18 Time of Evaluation: 15:00 - Subjective Subjective: No complaints. Objective - Vital Signs/Intake and Output Vital Signs (last 24 hours): Temp Pulse Resp BP Pulse Ox 98.6 F 68 15 149/62 95 03/05/18 20:00 03/05/18 20:00 03/05/18 20:00 03/05/18 22:03 03/05/18 20:00 Intake and Output: 03/05/18 03/06/18 18:59 06:59 Intake Total 930 Output Total 850 Balance 80 - Medications Medications: Current Medications Albuterol/Ipratropium (Duoneb 3 Mg/0.5 Mg (3 Ml) Ud) 3 ml INH RQ6 [facility] Last Admin: 03/05/18 20:30 Dose: 3 ml Aspirin (Ecotrin) 81 mg PO DAILY [facility] Last Admin: 02/28/18 10:03 Dose: Not Given Clopidogrel Bisulfate (Plavix) 75 mg PO DAILY [facility] Last Admin: 02/28/18 10:03 Dose: Not Given Gabapentin (Neurontin) 600 mg PO DAILY [facility] Last Admin: 03/05/18 09:20 Dose: 600 mg Ferric Sodium Gluconate Complex 125 mg/ Sodium Chloride 110 mls @ 110 mls/hr IVPB Q24H [facility] Stop: 03/08/18 14:01 Last Admin: 03/05/18 14:15 Dose: 110 mls/hr Ceftriaxone Sodium (Rocephin Iv 1 Gm Duplex) 50 mls @ 100 mls/hr IVPB Q24H [facility]; Protocol Last Admin: 03/05/18 10:26 Dose: 100 mls/hr Metoprolol Tartrate (Lopressor) 50 mg PO BID [facility] Last Admin: 03/05/18 17:33 Dose: 50 mg Ondansetron HCl (Zofran Inj) 4 mg IVP Q4H PRN PRN Reason: Nausea/Vomiting Last Admin: 02/28/18 22:03 Dose: 4 mg Pantoprazole Sodium (Protonix Ec Tab) 40 mg PO DAILY [facility] Last Admin: 03/05/18 09:20 Dose: 40 mg Polyethylene Glycol (Miralax) 17 gm PO BID PRN PRN Reason: Constipation Last Admin: 02/28/18 18:27 Dose: 17 gm Rosuvastatin Calcium (Crestor) 5 mg PO HS [facility] Last Admin: 03/05/18 22:06 Dose: 5 mg Sitagliptin Phosphate (Januvia) 50 mg PO DAILY [facility] Last Admin: 03/05/18 09:59 Dose: 50 mg - Labs Labs: 03/05/18 04:00 03/05/18 06:20 PT 12.5 SECONDS (9.7-12.2) H 02/27/18 14:19 INR 1.1 02/27/18 14:19 APTT 38 SECONDS (21-34) H 02/27/18 14:19 - Head Exam Head Exam: ATRAUMATIC - Eye Exam Eye Exam: Normal appearance - ENT Exam ENT Exam: Mucous Membranes Dry - Respiratory Exam Respiratory Exam: NORMAL BREATHING PATTERN - Cardiovascular Exam Cardiovascular Exam: +S1, +S2 - GI/Abdominal Exam GI & Abdominal Exam: Normal Bowel Sounds Assessment and Plan (1) Anemia Assessment & Plan: iron deficiency on IV iron GI w/u at some point. Status: Acute
[2018-03-06] MEDS: Albuterol-Ipratrop 3 mg / 0.5 (3 ml) UD INH SCH ×3 (01:44→13:28)
[2018-03-06 06:14] LABS: ALB/GLOB RATIO 1.1 (1.0-2.1); ALT/SGPT 14 U/L (9-52); AST/SGOT 21 U/L (14-36); BLOOD UREA NITROGEN 19 mg/dL (7-17); CALCIUM 9.6 mg/dl (8.6-10.4); GFR NON-AFRICAN AMERICAN > 60
[2018-03-06 06:21] LABS: BASO % 0.5 % (0.0-2.0); EOS # 0.1 K/uL (0.0-0.7); EOS % 0.8 % (0.0-4.0); LYMPH # 1.1 K/uL (1.0-4.3); LYMPH % 11.5 % (20.0-40.0); MEAN CELL VOLUME 75.1 fL (81.0-99.0); MEAN CORPUSCULAR HEMOGLOBIN 23.1 pg (27.0-31.0); MEAN CORPUSCULAR HGB CONC 30.8 g/dL (33.0-37.0); MEAN PLATELET VOLUME 9.3 fL (7.2-11.7); MONO # 0.7 K/uL (0.0-0.8); MONO % 7.6 % (0.0-10.0); NEUT # 7.7 K/uL (1.8-7.0); NEUT % 79.6 % (50.0-75.0); NRBC % 0.1 % (0.0-2.0); RBC 5.19 Mil/uL (3.80-5.20); RED CELL DISTRIBUTION WIDTH 28.4 % (11.5-14.5); WHITE BLOOD COUNT 9.7 K/uL (4.8-10.8)
--- NOTE | 2018-03-06 08:53 | PN ---
DATE: 03/04/2018 SUBJECTIVE: I saw her in the intensive care unit. She is more alert, but she is very tired. She is doing a little bit better but has not gotten out of bed for three to four days, not sure why. Physical Therapy had seen her and recommended [facility]. I put in a consult to case management for [facility] at [facility]. She has consults with Ear, Nose and Throat for ear pain; Infectious Disease; altered mental status, shortness of breath; Pulmonary, Neurology for altered mental status. She had a CAT scan of her brain, which did not show anything acute. She is trying to eat food. PHYSICAL EXAMINATION: VITAL SIGNS: She has 98.5 temp, 67 pulse, 135/63 blood pressure, 18 respiratory rate, 97% sat on room air. HEENT: Head is atraumatic, normocephalic. GENERAL: She is much more alert today. She is on nasal cannula oxygen. HEART: Regular rate. LUNGS: Decreased breath sounds. ABDOMEN: Soft, obese, nontender. EXTREMITIES: No edema. MEDICATIONS: She is currently on Crestor, DuoNebs, Ecotrin, iron replacement IV, Januvia, Lasix 40 IV every 12 hours, Lopressor, MiraLax, Neurontin, Plavix, Protonix, Rocephin IV, and Zofran. LABORATORY DATA: She has a white count of 9 that is almost the best it has been, pretty good; 11 hemoglobin, better; 35.8 hematocrit with 250 platelets. Sodium 137, potassium is 4, BUN is 10, creatinine 0.6, GFR is greater than 60, sugar is 109, calcium is 9.8, phosphorous 3.2, magnesium 1.4, total bili is 0.8. AST is 32, ALT is 22, alk phos 84, total protein 7.2. Urine was clean. Negative stool. Influenza and legionella pneumophila is negative. ASSESSMENT AND PLAN: I am hoping in the next couple of days, we get her to [facility] with case management's help, with a chest x-ray pending this morning. We will continue with aggressive treatment and care. We want her out of bed to chair everyday. We will check her labs tomorrow. I do think she is improving although Lyme titer pending and a West Nile titer pending. aches and pains and body aches and soreness. We will see how she does. We will continue with aggressive treatment and care. Valente Lozano DO MTDEsther
[2018-03-06] MEDS ORDERED: Potassium Chloride 20 mEq ER Tab PO SCH (10:30)
[2018-03-06] MEDS: Pantoprazole 40 mg EC Tab PO SCH (10:39)
[2018-03-06] MEDS: cefTRIAXone IV 1 gm in Dextros 50 ML IVPB SCH (10:39)
--- NOTE | 2018-03-06 13:20 | DS ---
SUBJECTIVE: The patient resting comfortably. She is more alert, more coherent asking better questions. She has had metabolic encephalopathy, CHF, hypertension, CAD, symptomatic anemia, altered mental status. She is doing much better. MEDICATIONS: She is on Crestor, DuoNebs, Ecotrin, iron IV, Januvia, Lopressor, Miralax, Neurontin, Plavix, Protonix, Rocephin, Zofran. PHYSICAL EXAMINATION: VITAL SIGNS: She has a 98.7 temperature, 70 pulse, 164/64 blood pressure, 20 respiratory rate, 94% O2 sat on nasal cannula. HEENT: Atraumatic and normocephalic. HEART: Regular rate. LUNGS: Decreased breath sounds and clear to auscultation. ABDOMEN: Soft, obese. EXTREMITIES: No edema. LABORATORY DATA: She had a 11.1 white count yesterday, 11 hemoglobin, 36.4 hematocrit, 262 platelets. Sodium, 134, potassium 3.8, BUN 50, creatinine 0.7, GFR is greater than 60, last blood sugar is 188, calcium 9.6, magnesium 1.5, total bili is 49, AST 31, ALT 17, alkaline phosphatase is 105 on 03/05/2018. ASSESSMENT AND PLAN: Ms. Victor will be discharged today to subacute rehab, [facility] or [facility]. I will call the case management and social workers to help us. She also has iron deficiency anemia, on IV iron. We will continue aggressive treatment and care and hopefully she could be discharged today. Valente DO Marta MTDD
--- NOTE | 2018-03-06 13:36 | CP.PCM.PN ---
Subjective - Date & Time of Evaluation Date of Evaluation: 03/06/18 Time of Evaluation: 08:00 - Subjective Subjective: awake alert denies fever or cxhills IV antibiotics on hold as CXR negative Objective - Vital Signs/Intake and Output Vital Signs (last 24 hours): Temp Pulse Resp BP Pulse Ox 98.7 F 71 20 154/64 H 94 L 03/06/18 04:00 03/06/18 10:00 03/06/18 04:00 03/06/18 04:00 03/06/18 04:00 Intake and Output: 03/06/18 03/06/18 06:59 18:59 Intake Total 240 Output Total 900 Balance -660 - Medications Medications: Current Medications Albuterol/Ipratropium (Duoneb 3 Mg/0.5 Mg (3 Ml) Ud) 3 ml INH RQ6 [facility] Last Admin: 03/06/18 13:28 Dose: Not Given Aspirin (Ecotrin) 81 mg PO DAILY [facility] Last Admin: 02/28/18 10:03 Dose: Not Given Clopidogrel Bisulfate (Plavix) 75 mg PO DAILY [facility] Last Admin: 02/28/18 10:03 Dose: Not Given Gabapentin (Neurontin) 600 mg PO DAILY [facility] Last Admin: 03/06/18 10:39 Dose: 600 mg Ferric Sodium Gluconate Complex 125 mg/ Sodium Chloride 110 mls @ 110 mls/hr IVPB Q24H [facility] Stop: 03/08/18 14:01 Last Admin: 03/05/18 14:15 Dose: 110 mls/hr Ceftriaxone Sodium (Rocephin Iv 1 Gm Duplex) 50 mls @ 100 mls/hr IVPB Q24H [facility]; Protocol Last Admin: 03/06/18 10:39 Dose: 100 mls/hr Metoprolol Tartrate (Lopressor) 50 mg PO BID [facility] Last Admin: 03/06/18 10:39 Dose: 50 mg Ondansetron HCl (Zofran Inj) 4 mg IVP Q4H PRN PRN Reason: Nausea/Vomiting Last Admin: 02/28/18 22:03 Dose: 4 mg Pantoprazole Sodium (Protonix Ec Tab) 40 mg PO DAILY [facility] Last Admin: 03/06/18 10:39 Dose: 40 mg Polyethylene Glycol (Miralax) 17 gm PO BID PRN PRN Reason: Constipation Last Admin: 02/28/18 18:27 Dose: 17 gm Rosuvastatin Calcium (Crestor) 5 mg PO HS [facility] Last Admin: 03/05/18 22:06 Dose: 5 mg Sitagliptin Phosphate (Januvia) 50 mg PO DAILY [facility] Last Admin: 03/06/18 10:39 Dose: 50 mg - Labs Labs: 03/06/18 05:37 03/06/18 05:37 PT 12.5 SECONDS (9.7-12.2) H 02/27/18 14:19 INR 1.1 02/27/18 14:19 APTT 38 SECONDS (21-34) H 02/27/18 14:19 - Constitutional Appears: Chronically Ill - Head Exam Head Exam: NORMOCEPHALIC - Eye Exam Eye Exam: absent: Scleral icterus - ENT Exam ENT Exam: Mucous Membranes Dry - Neck Exam Neck Exam: absent: Lymphadenopathy - Respiratory Exam Respiratory Exam: Decreased Breath Sounds - Cardiovascular Exam Cardiovascular Exam: REGULAR RHYTHM - GI/Abdominal Exam GI & Abdominal Exam: Distended, Soft - Rectal Exam Rectal Exam: Deferred - Exam Exam: NORMAL INSPECTION - Extremities Exam Extremities Exam: absent: Pedal Edema - Back Exam Back Exam: absent: CVA tenderness (L), CVA tenderness (R) - Neurological Exam Neurological Exam: Alert, Awake, Oriented x3 - Psychiatric Exam Psychiatric exam: Depressed - Skin Skin Exam: Dry Assessment and Plan (1) Acute CHF Status: Acute (2) Hypoxia Status: Acute (3) Symptomatic anemia Status: Acute (4) Bradycardia Status: Acute (5) CAD (coronary artery disease) Status: Acute (6) CHF (congestive heart failure) Status: Acute (7) Hx of coronary artery disease Status: Acute (8) Diabetes mellitus Status: Chronic (9) Hypertension Status: Chronic
[2018-03-06] MEDS: Ferric Sodium Gluconat Complex 125 MG in Sodium Chloride 0.9% 100 ML IVPB SCH (14:11)
--- NOTE | 2018-03-06 16:07 | CP.PCM.PN ---
Subjective - Date & Time of Evaluation Date of Evaluation: 03/06/18 Time of Evaluation: 09:40 - Subjective Subjective: Patient seen and examined at bedside, sitting down comfortably. Afebrile and in no acute distress, breathing much better. Denies shortness of breath, cough, chest pain, fever. Good urine output. Continue Duoneb. Objective - Vital Signs/Intake and Output Vital Signs (last 24 hours): Temp Pulse Resp BP Pulse Ox 97.8 F 71 15 138/67 99 03/06/18 12:00 03/06/18 12:00 03/06/18 12:00 03/06/18 12:00 03/06/18 12:00 Intake and Output: 03/06/18 03/06/18 06:59 18:59 Intake Total 240 Output Total 900 Balance -660 - Medications Medications: Current Medications Albuterol/Ipratropium (Duoneb 3 Mg/0.5 Mg (3 Ml) Ud) 3 ml INH RQ6 [facility] Last Admin: 03/06/18 13:28 Dose: Not Given Aspirin (Ecotrin) 81 mg PO DAILY [facility] Last Admin: 02/28/18 10:03 Dose: Not Given Clopidogrel Bisulfate (Plavix) 75 mg PO DAILY [facility] Last Admin: 02/28/18 10:03 Dose: Not Given Gabapentin (Neurontin) 600 mg PO DAILY [facility] Last Admin: 03/06/18 10:39 Dose: 600 mg Ferric Sodium Gluconate Complex 125 mg/ Sodium Chloride 110 mls @ 110 mls/hr IVPB Q24H [facility] Stop: 03/08/18 14:01 Last Admin: 03/06/18 14:11 Dose: 110 mls/hr Ceftriaxone Sodium (Rocephin Iv 1 Gm Duplex) 50 mls @ 100 mls/hr IVPB Q24H [facility]; Protocol Last Admin: 03/06/18 10:39 Dose: 100 mls/hr Metoprolol Tartrate (Lopressor) 50 mg PO BID [facility] Last Admin: 03/06/18 10:39 Dose: 50 mg Ondansetron HCl (Zofran Inj) 4 mg IVP Q4H PRN PRN Reason: Nausea/Vomiting Last Admin: 02/28/18 22:03 Dose: 4 mg Pantoprazole Sodium (Protonix Ec Tab) 40 mg PO DAILY [facility] Last Admin: 11/26/18 10:39 Dose: 40 mg Polyethylene Glycol (Miralax) 17 gm PO BID PRN PRN Reason: Constipation Last Admin: 02/28/18 18:27 Dose: 17 gm Rosuvastatin Calcium (Crestor) 5 mg PO HS [facility] Last Admin: 03/05/18 22:06 Dose: 5 mg Sitagliptin Phosphate (Januvia) 50 mg PO DAILY [facility] Last Admin: 03/06/18 10:39 Dose: 50 mg - Labs Labs: 03/06/18 05:37 03/06/18 05:37 PT 12.5 SECONDS (9.7-12.2) H 02/27/18 14:19 INR 1.1 02/27/18 14:19 APTT 38 SECONDS (21-34) H 02/27/18 14:19 Assessment and Plan (1) Acute CHF Status: Acute (2) Hypoxia Status: Acute (3) Anemia Status: Acute
[2018-03-06 17:05] VITALS: BP 128/93; PULSE 74; RESP 24; TEMP 97.9; O2SAT 100
--- NOTE | 2018-03-06 17:47 | CARD ---
APPROVED REPORT Date of service: 02/27/2018 EKG Measurement Heart [id number] <Conclusion> Normal sinus rhythm Nonspecific T wave abnormality Abnormal ECG
--- NOTE | 2018-03-06 22:55 | CP.PCM.PN ---
Subjective - Date & Time of Evaluation Date of Evaluation: 03/06/18 Time of Evaluation: 10:00 - Subjective Subjective: No complaints. Objective - Vital Signs/Intake and Output Vital Signs (last 24 hours): Temp Pulse Resp BP Pulse Ox 97.9 F 74 24 128/93 H 100 03/06/18 16:00 03/06/18 16:00 03/06/18 16:00 03/06/18 16:00 03/06/18 16:00 - Labs Labs: 03/06/18 05:37 03/06/18 05:37 PT 12.5 SECONDS (9.7-12.2) H 02/27/18 14:19 INR 1.1 02/27/18 14:19 APTT 38 SECONDS (21-34) H 02/27/18 14:19 - Head Exam Head Exam: ATRAUMATIC - Eye Exam Eye Exam: Normal appearance - ENT Exam ENT Exam: Mucous Membranes Dry - Respiratory Exam Respiratory Exam: NORMAL BREATHING PATTERN - Cardiovascular Exam Cardiovascular Exam: +S1, +S2 - GI/Abdominal Exam GI & Abdominal Exam: Normal Bowel Sounds Assessment and Plan (1) Anemia Assessment & Plan: iron deficiency on IV iron GI w/u at some point. Status: Acute
== END 2018-03-06 17:25 | DRG 291 ==
LOC: C.ER 13:20 → C.9E 15:13 → C.9I 18:38
PROVIDERS: ADMIT Family Medicine; ATTEND Family Medicine
PROC: 30233N1 Transfusion of Nonautologous Red Blood Cells into Peripheral Vein, Percutaneous Approach (ICD-10-PCS; principal; 2018-02-27)
DX: I11.0 Hypertensive heart disease with heart failure (principal); D50.9 Iron deficiency anemia, unspecified; I50.23 Acute on chronic systolic (congestive) heart failure; J96.01 Acute respiratory failure with hypoxia; G93.41 Metabolic encephalopathy; J18.9 Pneumonia, unspecified organism; J44.0 Chronic obstructive pulmonary disease with (acute) lower respiratory infection; E11.9 Type 2 diabetes mellitus without complications; M10.9 Gout, unspecified; G90.2 Horner's syndrome; I25.10 Atherosclerotic heart disease of native coronary artery without angina pectoris; G89.29 Other chronic pain; M54.5 Low back pain; F17.200 Nicotine dependence, unspecified, uncomplicated; E78.5 Hyperlipidemia, unspecified; E78.00 Pure hypercholesterolemia, unspecified; E66.9 Obesity, unspecified; I25.2 Old myocardial infarction; Z86.19 Personal history of other infectious and parasitic diseases; Z79.4 Long term (current) use of insulin; Z79.02 Long term (current) use of antithrombotics/antiplatelets; Z79.82 Long term (current) use of aspirin; Z86.010 Personal history of colon polyps; Z86.73 Personal history of transient ischemic attack (TIA), and cerebral infarction without residual deficits; Z95.5 Presence of coronary angioplasty implant and graft; Z80.0 Family history of malignant neoplasm of digestive organs; Z80.49 Family history of malignant neoplasm of other genital organs; Z82.49 Family history of ischemic heart disease and other diseases of the circulatory system